=== PATIENT | female | born 1975 | race Caucasian/White ===

== ENCOUNTER 2024-01-02 15:40 | Emergency (ER) | payer OTHER, SELFPAY ==
[2024-01-02 15:46] VITALS: BP 146/93; PULSE 88; RESP 18; TEMP 36.7; O2SAT 100; BMI 29.0
--- NOTE | 2024-01-02 15:59 | ED.GENADUL1 ---
Documented by User: IRMA Collins 01/02/24 16:27 HPI - General Adult General Chief complaint: Urogenital-Female Stated complaint: UTI SYMPTOMS Time Seen by Provider: 01/02/24 15:41 Source: patient Mode of arrival: walk-in Limitations: no limitations History of Present Illness HPI narrative: Patient is a 48-year-old female who presents to the emergency department for UTI symptoms for the last 2 days. She states she has had similar UTIs in the past. She has urinary urgency and frequency associated with burning. She has no abdominal pain, fevers, vomiting. She reports mild diffuse pain across the low back today. She went to urgent care and was refused treatment and sent to the ER because of the low back pain. She states she has had similar UTIs previously and been treated without incident. She has no history of kidney stones. Related Data Previous Rx's Medication Instructions Recorded ciprofloxacin HCl 500 mg tablet 500 mg PO BID 7 days #14 tabs 01/02/24 (Cipro) ondansetron 4 mg disintegrating 4 mg PO Q6H PRN nausea and 01/02/24 tablet vomiting #12 tabs phenazopyridine 200 mg tablet 200 mg PO Q8H 2 days #6 tabs 01/02/24 (Pyridium) Allergies Allergy/AdvReac Type Severity Reaction Status Date / Time No Known Drug Allergies Allergy Verified 01/02/24 15:46 Review of Systems ROS Constitutional Denies: fever or chills Ears, nose, mouth, and throat Denies: throat pain or nasal congestion Cardiovascular Denies: chest pain Respiratory Denies: shortness of breath Gastrointestinal Denies: nausea or vomiting Genitourinary Reports: painful urination, urinary frequency and urinary urgency; Denies: blood in urine Musculoskeletal Reports: back pain Integumentary/Breast Denies: rash Neurological Denies: headache Hematologic/Lymphatic Denies: easy bruising or easy bleeding PFSH PFSH Social History Smoking status: Never smoker Exam Narrative Exam Narrative: Gen.: Awake, alert, in no distress Head: Normocephalic, atraumatic ENT: Moist mucous membranes Respiratory: No respiratory distress Gastrointestinal: Abdomen is soft, nondistended and nontender to palpation Back: No CVA tenderness Extremities: Moves extremities equally Psych: Normal mood and affect Neuro: No focal neuro deficit Skin: Warm, dry, intact Constitutional Vital Signs, click to edit/add: Last Vital Signs Temp 98.0 F 01/02/24 15:46 Pulse 88 01/02/24 15:46 Resp 18 01/02/24 15:46 BP 146/93 H 01/02/24 15:46 Pulse Ox 100 01/02/24 15:46 O2 Del Method Room Air 01/02/24 15:46 Course Vital Signs Vital signs: Vital Signs Temperature 98.0 F 01/02/24 15:46 Pulse Rate 88 01/02/24 15:46 Respiratory Rate 18 01/02/24 15:46 Blood Pressure 146/93 H 01/02/24 15:46 Pulse Oximetry 100 01/02/24 15:46 Oxygen Delivery Method Room Air 01/02/24 15:46 Temperature 98.0 F 01/02/24 15:46 Pulse Rate 88 01/02/24 15:46 Respiratory Rate 18 01/02/24 15:46 Blood Pressure 146/93 H 01/02/24 15:46 Pulse Oximetry 100 01/02/24 15:46 Oxygen Delivery Method Room Air 01/02/24 15:46 Medical Decision Making MDM Narrative Medical decision making narrative: I had a lengthy discussion with the patient about evaluation in the emergency department. Patient does not have a history of kidney stones, she does not have any severe pain in the ER, no abdominal pain, fevers or vomiting. She would like to defer additional testing at this time, urine specimen shows a urinary tract infection and the patient is started on Cipro, Pyridium, Zofran for home. She understands to return to the emergency department if symptoms change or worsen. Medical Records Medical records reviewed: Yes I reviewed the patient's medical records Lab Data Lab results reviewed: Yes I reviewed the patient's lab results Labs: Lab Results 01/02/24 Range/Units 16:00 Urine Color Lt. yellow (YELLOW) Urine Clarity Sl cloudy (CLEAR) Urine pH 5.5 (5.0-9.0) Ur Specific Ellis 1.025 (1.005-1.025) Urine Protein Negative (NEG/TRACE) mg/dL Urine Glucose (UA) Negative (NEGATIVE) mg/dL Urine Ketones Negative (NEGATIVE) mg/dL Urine Occult Blood Large A (NEGATIVE) Urine Nitrite Negative (NEGATIVE) Urine Bilirubin Negative (NEGATIVE) Urine Urobilinogen 0.2 (0.2-1.0) EU/dL Ur Leukocyte Esterase Small A (NEGATIVE) Urine RBC 5-10 A (0-2) #/HPF Urine WBC 20-50 A (NONE SEEN) #/HPF Ur Squamous Epith Cells Moderate A (NONE/RARE) #/LPF Urine Crystals None seen (None Seen) #/HPF Urine Bacteria Trace A (NONE SEEN) #/HPF Urine Casts None seen (NONE SEEN) #/LPF Urine Mucus Small A (NONE SEEN) Ur Culture Indicated? Yes Discharge Plan Discharge Chief Complaint: Urogenital-Female Clinical Impression: Urinary tract infection Patient Disposition: Home, Self-Care Time of Disposition Decision: 16:22 Condition: Good Prescriptions / Home Meds: New ciprofloxacin HCl [Cipro] 500 mg tablet 500 mg PO BID 7 Days Qty: 14 0RF phenazopyridine [Pyridium] 200 mg tablet 200 mg PO Q8H 2 Days Qty: 6 0RF ondansetron 4 mg tablet,disintegrating 4 mg PO Q6H PRN (Reason: nausea and vomiting) Qty: 12 0RF Instructions: Urinary Tract Infection in Women (ED) Additional Instructions: Please finish all of your antibiotics. If you develop fevers, severe pain, vomiting please return to the emergency department for further evaluation and treatment. Stand Alone Forms: Portal Instructions Referrals: Michelle Georges [employer] [Primary Care Provider] - 1 week Discharge Date/Time: 01/02/24 16:40 Documented by User: Tevin Tripathi MD 01/02/24 20:59 HPI - General Adult General Chief complaint: Urogenital-Female Stated complaint: UTI SYMPTOMS Time Seen by Provider: 01/02/24 15:41 Related Data Previous Rx's Medication Instructions Recorded ciprofloxacin HCl 500 mg tablet 500 mg PO BID 7 days #14 tabs 01/02/24 (Cipro) ondansetron 4 mg disintegrating 4 mg PO Q6H PRN nausea and 01/02/24 tablet vomiting #12 tabs phenazopyridine 200 mg tablet 200 mg PO Q8H 2 days #6 tabs 01/02/24 (Pyridium) Allergies Allergy/AdvReac Type Severity Reaction Status Date / Time No Known Drug Allergies Allergy Verified 01/02/24 15:46 PFSH PFSH Social History Smoking status: Never smoker Exam Constitutional Vital Signs, click to edit/add: Last Vital Signs Temp 98.0 F 01/02/24 15:46 Pulse 88 01/02/24 15:46 Resp 18 01/02/24 15:46 BP 146/93 H 01/02/24 15:46 Pulse Ox 100 01/02/24 15:46 O2 Del Method Room Air 01/02/24 15:46 Course Vital Signs Vital signs: Vital Signs Temperature 98.0 F 01/02/24 15:46 Pulse Rate 88 01/02/24 15:46 Respiratory Rate 18 01/02/24 15:46 Blood Pressure 146/93 H 01/02/24 15:46 Pulse Oximetry 100 01/02/24 15:46 Oxygen Delivery Method Room Air 01/02/24 15:46 Temperature 98.0 F 01/02/24 15:46 Pulse Rate 88 01/02/24 15:46 Respiratory Rate 18 01/02/24 15:46 Blood Pressure 146/93 H 01/02/24 15:46 Pulse Oximetry 100 01/02/24 15:46 Oxygen Delivery Method Room Air 01/02/24 15:46 Medical Decision Making [facility] Narrative Medical decision making narrative: I had a lengthy discussion with the patient about evaluation in the emergency department. Patient does not have a history of kidney stones, she does not have any severe pain in the ER, no abdominal pain, fevers or vomiting. She would like to defer additional testing at this time, urine specimen shows a urinary tract infection and the patient is started on Cipro, Pyridium, Zofran for home. She understands to return to the emergency department if symptoms change or worsen. I, Dr Tripathi, have reviewed the above progress note and course of action in the ER; agree with the above. I have gone over history and physical, and discussed disposition and treatment plan with the patient. Lab Data Labs: Lab Results 02/27/24 Range/Units 16:00 Urine Color Lt. yellow (YELLOW) Urine Clarity Sl cloudy (CLEAR) Urine pH 5.5 (5.0-9.0) Ur Specific Ellis 1.025 (1.005-1.025) Urine Protein Negative (NEG/TRACE) mg/dL Urine Glucose (UA) Negative (NEGATIVE) mg/dL Urine Ketones Negative (NEGATIVE) mg/dL Urine Occult Blood Large A (NEGATIVE) Urine Nitrite Negative (NEGATIVE) Urine Bilirubin Negative (NEGATIVE) Urine Urobilinogen 0.2 (0.2-1.0) EU/dL Ur Leukocyte Esterase Small A (NEGATIVE) Urine RBC 5-10 A (0-2) #/HPF Urine WBC 20-50 A (NONE SEEN) #/HPF Ur Squamous Epith Cells Moderate A (NONE/RARE) #/LPF Urine Crystals None seen (None Seen) #/HPF Urine Bacteria Trace A (NONE SEEN) #/HPF Urine Casts None seen (NONE SEEN) #/LPF Urine Mucus Small A (NONE SEEN) Ur Culture Indicated? Yes Discharge Plan Discharge Chief Complaint: Urogenital-Female Clinical Impression: Urinary tract infection Patient Disposition: Home, Self-Care Time of Disposition Decision: 16:22 Condition: Good Prescriptions / Home Meds: New ciprofloxacin HCl [Cipro] 500 mg tablet 500 mg PO BID 7 Days Qty: 14 0RF phenazopyridine [Pyridium] 200 mg tablet 200 mg PO Q8H 2 Days Qty: 6 0RF ondansetron 4 mg tablet,disintegrating 4 mg PO Q6H PRN (Reason: nausea and vomiting) Qty: 12 0RF Instructions: Urinary Tract Infection in Women (ED) Additional Instructions: Please finish all of your antibiotics. If you develop fevers, severe pain, vomiting please return to the emergency department for further evaluation and treatment. Stand Alone Forms: Portal Instructions Referrals: Michelle Georges NP [Primary Care Provider] - 1 week Discharge Date/Time: 01/02/24 16:40
[2024-01-02 16:07] LABS: Bilirubin Urine NEGATIVE (NEGATIVE); Blood Urine LARGE (NEGATIVE); Clarity Urine SL CLOUDY (CLEAR); Color Urine LT. YELLOW (YELLOW); Glucose Urine UA NEGATIVE (NEGATIVE); Ketones Urine NEGATIVE (NEGATIVE); Leukocyte Esterase Urine SMALL (NEGATIVE); Nitrite Urine NEGATIVE (NEGATIVE); Protein Urine NEGATIVE (NEG/TRACE); Specific Gravity Urine 1.025 (1.005-1.025); Urobilinogen Urine 0.2 EU/dL (0.2-1.0); pH Urine 5.5 (5.0-9.0)
[2024-01-02 16:09] LABS: Urine Microscopic Indicated YES
[2024-01-02 16:20] LABS: Bacteria Urine TRACE #/HPF (NONE SEEN); Mucus Urine SMALL (NONE SEEN); WBC Urine 20-50 #/HPF (NONE SEEN)
[2024-01-02 16:21] LABS: Cast Seen? NONE SEEN #/LPF (NONE SEEN); Crystals Seen? None Seen #/HPF (None Seen); Squamous Epithelial Cell Urine MODERATE #/LPF (NONE/RARE); Urine Culture Indicated YES
== END 2024-01-02 16:40 | disposition home or self-care (01) ==
PROVIDERS: Physician Assistant; Emergency Provider Emergency Medicine; PCP Nurse Practitioner
DX: N39.0 Urinary tract infection, site not specified (principal); Z87.440 Personal history of urinary (tract) infections; M54.50 Low back pain, unspecified
CPT/HCPCS: 81001; 87086; 87150; 87186; 99283

== ENCOUNTER 2024-01-09 15:27 | Outpatient (OUT) | payer OTHER, SELFPAY ==
--- NOTE | 2024-01-09 | MM_ITS ---
Patient Name: JO-ANN CARRASCO MR#: [id number] : 1975 Exam Date: 01/09/2024 Ordering Doctor: DANNY Georges CNP RADIOLOGY REPORT PROCEDURE: MM TOMOSYNTHESIS SCREENING BI COMPARISON: MG MAMM SCREEN 3D SHANE CAD, 12/20/2022. MG MAMM SCREEN SHANE W CAD, 09/08/2020. INDICATIONS: Screening for malignant neoplasm Calculator Name NCI Breast Cancer Risk Assessment Tool 5 Year Breast Cancer Risk 1.40% Lifetime Breast Cancer Risk 12.90% Personal Breast Cancer No Personal Ovarian Cancer No Treatments None Family Cancers Aunt-paternal with breast cancer at age 50. LOCATION: [facility] BREAST COMPOSITION: Extremely dense, which lowers the sensitivity of mammography. FINDINGS: DIAGNOSTIC CATEGORY 0--INCOMPLETE: NEED ADDITIONAL IMAGING EVALUATION. Scattered benign-appearing nodules are present. Scattered benign-appearing calcifications are present. Scattered benign-appearing lymph nodes are present. RIGHT BREAST: New cluster of subtle microcalcifications best seen on the CC projection along the 12 o'clock, mid to posterior breast. Spot magnification is recommended for further characterization. LEFT BREAST: No significant suspicious finding. RECOMMENDATIONS: ADDITIONAL MAMMOGRAPHIC VIEWS REQUIRED: RIGHT BREAST - spot magnification PLEASE NOTE: A NORMAL MAMMOGRAM DOES NOT EXCLUDE THE POSSIBILITY OF BREAST CANCER. A CLINICALLY SUSPICIOUS PALPABLE LUMP SHOULD BE BIOPSIED. Dictated by: Ray Moon MD on 01/10/2024 at 09:29 Approved by: Ray Moon MD on 01/10/2024 at 09:31
--- OUTSIDE RECORDS SUMMARY | 2024-01-09 15:44 | XMS_ITS | CCD ---
Author Name Unknown Address [address] [place] [id number] Organization [facility] Care Team Providers Care Referral Nurse Name Role Phone AICHHOLZ, PARTS CATALOGUER GUILLERMO Primary Care Unavailable AICHHOLZ, PARTS CATALOGUER GUILLERMO Consulting Unavailable AICHHOLZ, PARTS CATALOGUER GUILLERMO Attending Unavailable AICHHOLZ, PARTS CATALOGUER GUILLERMO Admitting Unavailable GARY, DR LOW Chavez Consulting Unavailable WEST, DR DESHAWN Liao Consulting Unavailable AICHHOLZ, PARTS CATALOGUER GUILLERMO Attending Unavailable AICHHOLZ, PARTS CATALOGUER GUILLERMO Admitting Unavailable AICHHOLZ, PARTS CATALOGUER GUILLERMO Primary Care Unavailable AICHHOLZ, PARTS CATALOGUER GUILLERMO Consulting Unavailable LEANNE Boykin Attending Provider Iesha Boykin Unavailable Iesha Boykin Admitting Unavailable Iesha Boykin Attending Unavailable Lisa Mckeon Unavailable Sonal Elena Unavailable Medications Current Medications Medication Drug Class(es) Dates Sig (Normalized) Sig (Original) dextromethorphan hydrobromide 1.5 mg/ml / pyrilamine maleate 1.5 mg/ml oral solution (1 source) Uncompetitive Z-huznqw-X-aspartat e Receptor Antagonist, Sigma-1 Agonist Start: 12-15-2023 take 10 mL by mouth every eight hours Frontier DM 7.5-7.5 MG/5ML 10 mL Orally every 8 hours for 5 days Dec, Active predniSONE 20 mg oral tablet (3 sources) Start: 11-09-2023 take 1 tablet by mouth every twelve hours prednisone 20 MG 1 tablet Orally BID for 5 Dec, Active Completed/Discontinued Medications Medication Drug Class(es) Dates Sig (Normalized) Sig (Original) amoxicillin 875 mg / clavulanate 125 mg oral tablet (2 sources) Penicillin-class Antibacterial Start: 11-09-2023 take 1 tablet by mouth every twelve hours Amoxicillin-Pot Clavulanate 875-125 MG 1 tablet Orally every 12 hrs for 10 day(s) Nov, Not-Taking/PRN Cetirizine (6 sources) Histamine-1 Receptor Antagonist ZyrTEC Allergy Not-Taking/PRN ZyrTEC Allergy N ot-Taking cyclobenzaprine hydrochloride 10 mg oral tablet (6 sources) Muscle Relaxant Start: 07-11-2020 take 1 tablet by mouth every eight hours Cyclobenzaprine HCl 10 MG 1 tablet as needed Orally Three times a day for 7 days Jul, Not-Taking/PRN Ketorolac (12 sources) Nonsteroidal Anti-inflammatory Drug, Cyclooxygenase Inhibitor Start: 07-11-2020 Toradol per 15 mg Jul, 30 mg Start: 05-05-2020 Toradol per 15 mg 30 Apr, 2020 30 mg methylPREDNISolone 4 mg oral tablet (6 sources) Corticosteroid Start: 07-11-2020 Medrol 4 MG as directed Orally for 6 days Jul, Not-Taking/PRN nitrofurantoin, macrocrystals 25 mg / nitrofurantoin, monohydrate 75 mg oral capsule (6 sources) Nitrofuran Antibacterial Start: 09-13-2023 take 1 capsule by mouth every twelve hours Macrobid 100 MG 1 cap(s) Orally bid for 5 day(s) Sep, Not-Taking/PRN phenazopyridine hydrochloride 200 mg oral tablet (6 sources) Start: 09-13-2023 take 1 tablet by mouth every eight hours Pyridium 200 MG 1 tablet after meals Orally Three times a day for 2 day(s) Sep, Not-Taking/PRN ProAir HFA 108 (90 Base) MCG/ACT (6 sources) Start: 05-23-2019 take 2 puff(s) by inhalation every four to six hours as needed ProAir HFA 108 (90 Base) MCG/ACT 2 puffs as needed Inhalation every 4-6 hrs prn May, Not-Taking/PRN Start: 05-23-2019 take 2 puff(s) by in halation every four to six hours as needed ProAir HFA 108 (90 Base) MCG/ACT 2 puffs as needed Inhalation every 4-6 hrs prn May, Not-Taking Triamcinolone (12 sources) Corticosteroid Start: 07-11-2020 KENALOG - 10 m g Jul, 40 mg Start: 05-05-2020 KENALOG - 10 m g Apr, 40 mg Problems Active Problems Problem Classification Problem Date Documented Da te Episodic/Chronic Genitourinary symptoms and ill-defined conditions (4 sources) Dysuria; Translations: [Dysuria] Onset: 09-13-2023 Episodic Other ear and sense organ disorders (6 sources) Otitis externa; Translations: [Unspecified otitis externa, right ear] Chronic Other eye disorders (1 source) Conjunctival hemorrhage, left eye Episodic Other non-traumatic joint disorders (4 sources) Effusion, left ankle; Translations: [EFFUSION LEFT ANKLE] Onset: 12-07-2022 Episodic Other screening for suspected conditions (not mental disorders or infectious disease) (4 sources) Encounter for screening mammogram for malignant neoplasm of breast; Translations: [ENC SCR MAMMO MALIG NEOPLASM BREAST] Onset: 12-20-2022 Episodic Other upper respiratory disease (6 sources) Allergic rhinitis; Translations: [Allergic rhinitis, unspecified] Chronic Other upper respiratory infections (2 sources) Acute maxillary sinusitis, unspecified; Translations: [Acute upper respiratory infection, unspecified] Episodic Residual codes; unclassified (1 source) Family history of malignant neoplasm of breast; Translations: [FAMILY HX MALIG NEOPLASM OF BREAST] Onset: 12-23-2022 Episodic Spondylosis; intervertebral disc disorders; other back problems (12 sources) Sciatica; Translations: [Sciatica, left side] Episodic Urinary tract infections (3 sources) Acute cystitis with hematuria Episodic Past or Other Problems Problem Classification Problem Date Documented Da te Episodic/Chronic Unclassified (1 source) Contact with and (suspected) exposure to covid-19 Z20.822 Results Test Name Value Interpretation Reference Range Facil ity COVID + FLU Quick Testingon 12-15-2023 SARS-CoV-2 (COVID-19) RNA SHARMILA+probe Ql (Unsp spec) Negative [facility] Other COVID + FLU Quick Testing Negative [facility] Other Urinalysis - AUTOMATEDon Appearance (U) clear [facility] Other Bilirubin Ql (U) Negative Should[employer] Other Color (U) yellow [facility] Other Glucose Ql (U) Negative [facility] Other Hemoglobin Ql (U) large [employer] Other Ketones Ql (U) Positive [facility] Other Leukocyte esterase Test strip Ql (U) moderate [facility] Other Nitrite Ql (U) Positive [facility] Other pH (U) 6.5 [pH] [facility] Other Protein Ql (U) Negative [facility] Other Specific gravity (U) [Rel density] 1.025 [facility] Other Urobilinogen (U) [Mass/Vol] 0.2 mg/dL [facility] Other Urinalysis - AUTOMATED [facility] Other Urine Cultureon 09-13-2023 Bacteria identified Cx Nom (U) Reason for Exam Dysuria Urine ORGANISM: Escherichia coli (O:ESCCOL) [place] Count >100,000 Aerobic LETTY Charge (NMIC56) ----- SUSCEPTIBILITY ---- ORGANISM: O:ESCCOL ANTIBIOTIC INTERPRETATION LETTY Amikacin S <16 Amoxacillin/K Clavulanate S <8 Ampicillin S <8 Ampicillin/Sulbactam S <4 Aztreonam S <4 Cefazolin S <2 Cefepime S <2 Ceftazidime S <1 Ceftazidime/Avibacta m S <4 Ceftolozane/Tazobact am S <2 Ceftriaxone S <1 Cefuroxime S <4 Ciprofloxacin S <0.25 Ertapenem S <0.5 Gentamicin S <2 Levofloxacin S <0.5 Meropenem S <1 Meropenem/Vaborbacta m S <2 Nitrofurantoin S <32 Piperacillin/Tazobac bell S <8 Tetracycline S <4 Tigecycline S <2 Tobramycin S <2 Trimethoprim/Sulfame thoxazole S <0.5 S = SUSCEPTIBLE I = INTERMEDIATE R = RESISTANT BLANK = DATA NOT AVAILABLE, OR DRUG NOT ADVISABLE OR TESTED R* = RESISTANCE DUE TO EXTENDED SPECTRUM BETA-LACTAMASES ESBL = EXTENDED SPECTRUM BETA-LACTAMASE TFG = THYMIDINE-DEPENDENT STRAIN TEE = BETA-LACTAMASE POSITIVE IB = INDUCIBLE BETA-LACTAMASE. APPEARS IN PLACE OF 'S' WITH SPECIES KNOWN TO POSSESS INDUCIBLE BETA-LACTAMASES. POTENTIALLY THEY MAY BECOME RESISTANT TO ALL B-LACTAM DRUGS. PERFORMED BY: [facility] [address] [place] [address] PATHOLOGIST FITNESS SUPERVISOR TEVIN JENKINS M.D. Normal [facility] Comment on above: Performed By: #### C UU #### [facility] [address] [place] [address] Urine Culture >100,000 [facility] Other Urine Culture <16 Susceptible [facility] Other Urine Culture <8/4 Susceptible [facility] Other Urine Culture <8 Susceptible [facility] Other Urine Culture <4 Susceptible [facility] Other Urine Culture <2 Susceptible [facility] Other Urine Culture <1 Susceptible [facility] Other Urine Culture <0.25 Susceptible [facility] Other Urine Culture <0.5 Susceptible [facility] Other Urine Culture <32 Susceptible [facility] Other Urine Culture <0.5/9.5 Susceptible [facility] Other MG MAMM SCREEN 3D SHANE CADon 12-20-2022 MG MAMM SCREEN 3D SHANE CAD Patient: JO-ANN CARRASCO Exam Date: 12/20/2022 : 1975 Gender:F Ordering : DANNY GERBER [facility] Admission #: [id number] Family : Order #: [id number] CLICK HERE TO VIEW EXAM RADIOLOGY REPORT PROCEDURE: MAMMOGRAM SCREENING 3D BILATERAL CAD COMPARISON: MG MAMM SCREEN SHANE W CAD, 05/07/2019. MG MAMM SCREEN SHANE W CAD, 09/08/2020. INDICATIONS: Screening mammography Calculator Name NCI Breast Cancer Risk Assessment Tool 5 Year Breast Cancer Risk 1.50% Lifetime Breast Cancer Risk 13.20% Personal Breast Cancer No Personal Ovarian Cancer No Treatments None Family Cancers Aunt-paternal with breast cancer at age 50. LOCATION: [facility] BREAST COMPOSITION: Extremely dense, which lowers the sensitivity of mammography. FINDINGS: DIAGNOSTIC CATEGORY 1--NEGATIVE. NO CHANGE FROM COMPARISON ASSESSMENT. Scattered benign-appearing calcifications are present. Scattered benign-appearing lymph nodes are present. RIGHT BREAST: No significant suspicious finding. LEFT BREAST: No significant suspicious finding. RECOMMENDATIONS: ROUTINE MAMMOGRAM AND CLINICAL EVALUATION IN 12 MONTHS. PLEASE NOTE: A NORMAL MAMMOGRAM DOES NOT EXCLUDE THE POSSIBILITY OF BREAST CANCER. A CLINICALLY SUSPICIOUS PALPABLE LUMP SHOULD BE BIOPSIED. Dictated by: Deshawn Joseph MD on 12/21/2022 at 06:14 Approved by: Deshawn Joseph MD on 12/21/2022 at 06:16 Normal [facility] Vital Signs Date Time Vital Sign Value Performing Clinician Facility 12-15-2023 15:50-0500 Body height 165.1 cm Sonal Elena Other [facility] Other 12-15-2023 15:50-0500 Body mass index (BMI) [Ratio] 29.95 kg/m2 Sonal Elena Other [facility] Other 12-15-2023 15:50-0500 Body temperature 98.1 [degF] Sonal Elena Other [facility] Other 12-15-2023 15:50-0500 Body weight 81.65 kg Sonal Elena Other [facility] Other 12-15-2023 15:50-0500 Diastolic blood pressure 94 mm[Hg] Sonal Elena Other [facility] Other 12-15-2023 15:50-0500 Respiratory rate 18 /min Sonal Elena Other [facility] Other 12-15-2023 15:50-0500 SaO2% (BldA) [Mass fraction] 99 % Sonal Elena Other [facility] Other 12-15-2023 15:50-0500 Systolic blood pressure 141 mm[Hg] Sonal Elena Other [facility] Other 11-09-2023 15:30-0500 Body height 165.1 cm Sonal Elena Other [facility] Other 11-09-2023 15:30-0500 Body mass index (BMI) [Ratio] 29.88 kg/m2 Sonal Elena Other [facility] Other 11-09-2023 15:30-0500 Body temperature 97.3 [degF] Sonal Elena Other [facility] Other 11-09-2023 15:30-0500 Body weight 81.47 kg Sonal Elena Other [facility] Other 11-09-2023 15:30-0500 Diastolic blood pressure 85 mm[Hg] Sonal Elena Other [facility] Other 11-09-2023 15:30-0500 Respiratory rate 18 /min Sonal Elena Other [facility] Other 11-09-2023 15:30-0500 SaO2% (BldA) [Mass fraction] 99 % Sonal Ulices Other [facility] Other 11-09-2023 15:30-0500 Systolic blood pressure 129 mm[Hg] Sonal Ulices Other [facility] Other 10-19-2023 15:45-0500 Body height 165.1 cm Lisa Linda Other [facility] Other 10-19-2023 15:45-0500 Body mass index (BMI) [Ratio] 29.28 kg/m2 Lisa Linda Other [facility] Other 10-19-2023 15:45-0500 Body temperature 98.1 [degF] Lisa Linda Other [facility] Other 10-19-2023 15:45-0500 Body weight 79.83 kg Lisa Linda Other [facility] Other 10-19-2023 15:45-0500 Diastolic blood pressure 91 mm[Hg] Lisa Linad Other [facility] Other 10-19-2023 15:45-0500 Respiratory rate 18 /min Lisa Linda Other [facility] Other 10-19-2023 15:45-0500 SaO2% (BldA) [Mass fraction] 98 % Lisa Linda Other [facility] Other 10-19-2023 15:45-0500 Systolic blood pressure 140 mm[Hg] Lisa Linda Other [facility] Other 09-13-2023 13:55-0500 Body height 165.1 cm Iesha Boykin Other [facility] Other 09-13-2023 13:55-0500 Body mass index (BMI) [Ratio] 29.62 kg/m2 Iesha Boykin Other [facility] Other 09-13-2023 13:55-0500 Body temperature 97.9 [degF] Iesha Boykin Other [facility] Other 09-13-2023 13:55-0500 Body weight 80.74 kg Iesha Boykin Other [facility] Other 09-13-2023 13:55-0500 Respiratory rate 18 /min Iesha Boykin Other [facility] Other 09-13-2023 13:55-0500 SaO2% (BldA) [Mass fraction] 98 % Iesha Boykin Other [facility] Other Encounters Encounter Date Encounter Type Care Provider Facility Start: 12-15-2023 End: 12-15-2023 ambulatory Sonal Elena Other [facility] Other Start: 12-15-2023 Office outpatient vi sit 25 minutes Sonal Elena [facility] Start: 11-09-2023 End: 11-09-2023 ambulatory Sonal Elena Other [facility] Other Start: 11-09-2023 Office outpatient vi sit 25 minutes Sonal Elena [facility] Start: 10-19-2023 End: 10-19-2023 ambulatory Lisa Linda Other [facility] Other Start: 10-19-2023 Office outpatient vi sit 15 minutes Lisa Mckeon [facility] Start: 09-13-2023 End: 09-13-2023 ambulatory Iesha Boykin Facility:[facility] Start: 09-13-2023 End: 09-13-2023 Departed 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 [employer]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 Iesha Boykin Work Phone: [facility] [employer] Work Phone: Start: 09-13-2023 End: 09-13-2023 ambulatory P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 Iesha Boykin Work Phone: [facility] Work Phone: Start: 09-13-2023 Office outpatient ne w 10 minutes Iesha Boykin [facility] Start: 12-20-2022 End: 12-21-[address] DESHAWN JOSEPH Facility:[facility] Start: 12-07-2022 End: 12-08-2022 ambulatory DANNY HERNANDEZA BUZZ Facility:[facility] Procedures Date Procedure Procedure Detail Performing Clinician Start: 09-13-2023 Piperacillin/tazobactam Iesha Boykin Other Plan of Treatment Date Care Activity Detail Author Start: 09-13-2023 Bacteria identified in Urine by Culture [facility] Payers Date Payer Category Payer Medicaid [id number] 2023 Self-pay [id number] 1975 Unknown [id number] 1975 Unknown [id number] 1960 Unknown [id number] Private Health Insurance [facility] Plan [id number] Unknown [id number] Social History Date Type Detail Facility Tobacco smoking status NHIS Unknown if ever smoked [facility] Work Phone: Start: 1975 Sex Assigned At Female F [facility] Sex Assigned At Sex Assigned At Bir th [place] [employer] Other Evaluation note 12-15-2023 Note Date & Type Note Facility 12-15-2023 Evaluation note Encounter Date Diagnosis Assessment Notes Dec, Contact with and (suspected) exposure to covid-19 (ICD-10 - Z20.822) Dec, Viral URI with cough (ICD-10 - J06.9) Advised patient that COVID/Influenza A/B test was negative today. Advised patient that will treat as viral URI. Supportive care as directed, increase fluids and rest, Tylenol/Motrin as directed, rx of prednisone and Frontier as directed, cool mist humidifier, throat lozenges. Discussed infection control practices such as good hand washing and mask wearing. Patient to follow up with PCP if symptoms persist or worsen despite treatment. Immediate eval for SOB, difficulty breathing, chest pain, fevers that do not break with antipyretic or any other concerning symptoms as reviewed on patient education handout. Patient verbalizes understanding and is agreeable to treatment plan. Patient left in stable condition [facility] Other Evaluation note 11-09-2023 Note Date & Type Note Facility 11-09-2023 Evaluation note Encounter Date Diagnosis Assessment Notes Nov, Acute non-recurrent maxillary sinusitis (ICD-10 - J01.00) No testing performed at this time. Discussed diagnosis with patient in detail. Will treat today with antibiotic. Reviewed allergies and recent antibiotic use. Advised to take medications as prescribed, reviewed side effects of steroid, take with food and plenty of water, finish entire course. Encouraged supportive care as directed, push fluids and rest, may use Tylenol as needed for fever/discomfor t, cool mist humidifier, OTC cold medications as directed. Patient to follow up with PCP in 2-3 days if symptoms do not improve. Immediate eval if SOB, difficulty breathing, chest pain, dizziness, or other concerning symptoms. Patient verbalizes understanding and is agreeable to treatment plan [facility] Other Evaluation note 10-19-2023 Note Date & Type Note Facility 10-19-2023 Evaluation note Encounter Date Diagnosis Assessment Notes Oct, Subconjunctival hemorrhage of left eye (ICD-10 - H11.32) You were seen here today for complaints of left outer corner eye redness. You deny injury, itching, pain, or draianage, You deny any recent illness, congestion, cough, or high blood pressure. The exam of your left eye is consistent with a subconjunctival hemmorhage. You can continue your saline eye drops for comfort. The redness should resolve on its own. Follow up with your primary care provider or eye doctor if sympotoms persist. Go to the ER if you lose vision, have change in vision, severe headache. [facility] Other Evaluation note 09-13-2023 Note Date & Type Note Facility 09-13-2023 Evaluation note Encounter Date Diagnosis Assessment Notes Sep, Dysuria (ICD-10 - R30.0) Sep, Acute cystitis with hematuria (ICD-10 - N30.01) Drink plenty fluids, get plenty of rest. Take the Macrobid and the Pyridium as prescribed until gone. Take Tylenol or Motrin as needed for aches pains or fevers. Follow-up with your family physician if no improvement in 2 to 3 days [facility] Other Clinical Note 12-07-2022 Note Date & Type Note Facility 12-07-2022 Note PROCEDURE: XR ANKLE LT MIN 3 V HISTORY: Effusion of joint of left ankle ; acute lateral ankle pain; no known injury COMPARISON: None. FINDINGS: BONES:No fracture, acute abnormality, or significant arthropathy. SOFT TISSUES:Mild lateral soft tissue swelling. EFFUSION:None visible. OTHER: Negative. IMPRESSION: 1. Mild lateral swelling suggesting soft tissue injury. 2. No acute bone abnormality. Electronically authenticated by: LOW VEGA Date: 2022-12-07 13:11 [facility] Evaluation note Note Date & Type Note Facility Evaluation note No assessment information availa ble [facility] Work Phone: History general Narrative - Reported Note Date & Type Note Facility History general Narrative - Reported Type Surgical History tubal ligation Surgical History C section x 2 Surgical History LEEP Hospitalization History see above [facility] Other Summary Purpose Family History No Family History Records FoundNo Family History Records Found Advance Directives Advance Directive Response Recorded Date/ Time Advance Directives No December 05, 2018 9:22am Chief Complaint and Reason for Visit Chief Complaint Dysuria Additional Source Comments INFORMATION SOURCE (unrecogn ized section and content) DATE CREATED AUTHOR 12/24/2022 [facility] DATE CREATED AUTHOR AUTHOR'S ORGANIZ ATION 09/19/2023 [facility] Care Teams (unrecognized sec tion and content) Team Status: Inactive Member Role Status Dates GRICEL ChuC Attending Provider Active Goals (unrecognized section and content) Goals may be documented in a n alternate sectionNo InformationNo InformationNo InformationNo InformationNo InformationNo Information REASON FOR VISIT (unrecogniz ed section and content) POSSIBLE UTIPOSSIBLE UTIPOSS IBLE UTILEFT EYE, RED, NOT PINK EYE. BROKEN BLOOD VESSEL, IRRATINGSINUS CONGESTION//COUGHING//FLUID IN BOTH EARSCOUGH, CONGESTION, EARACHE FOR RECORDS PERTAINING TO PATIENTS WHO ARE OR HAVE BEEN ENROLLED IN A CHEMICAL DEPENDENCY/SUBSTANCEABUSE PROGRAM, SOME INFORMATION MAY BE OMITTED. This clinical summary was aggregated from multiple sources. Caution should be exercised in using it in the provision of clinical care. This summary normalizes information from multiple sources, and as a consequence, information in this document may materially change the coding, format and clinical context of patient data. In addition, data may be omitted in some cases. CLINICAL DECISIONS SHOULD BE BASED ON THE PRIMARY CLINICAL RECORDS. [employer] provides no warranty or guarantee of the accuracy or completeness of information in this document.
== END 2024-01-09 15:28 | disposition home or self-care (01) ==
LOC: MAMMO 15:27
PROVIDERS: PCP Nurse Practitioner; Visit Provider Nurse Practitioner
DX: Z12.31 Encounter for screening mammogram for malignant neoplasm of breast (principal); Z80.3 Family history of malignant neoplasm of breast; R92.0 Mammographic microcalcification found on diagnostic imaging of breast
CPT/HCPCS: 77063; 77067

== ENCOUNTER 2024-01-24 10:43 | Outpatient (OUT) | payer OTHER, SELFPAY ==
--- NOTE | 2024-01-24 10:50 | US_ITS ---
Patient Name: JO-ANN CARRASCO MR#: [id number] : 1975 Exam Date: 01/24/2024 Ordering Doctor: DANNY Georges CNP RADIOLOGY REPORT PROCEDURE: MM DIAGNOSTIC MAMMO UNILAT RT, 01/24/2024, 09:59 US BREAST RT LIMITED, 01/24/2024, 11:24 COMPARISON: MM TOMOSYNTHESIS SCREENING BI, 01/09/2024. INDICATIONS: abnormal screening mammogram right breast Calculator Name NCI Breast Cancer Risk Assessment Tool 5 Year Breast Cancer Risk 1.40% Lifetime Breast Cancer Risk 12.90% Personal Breast Cancer No Personal Ovarian Cancer No Treatments None Family Cancers Aunt-paternal with breast cancer at age 50. LOCATION: [facility] BREAST COMPOSITION: Extremely dense, which lowers the sensitivity of mammography. FINDINGS: DIAGNOSTIC CATEGORY 4--SUSPICIOUS FOR MALIGNANCY. FINDING DOES NOT EXHIBIT CLASSIC FINDINGS OF BREAST CANCER: Two spot magnification views demonstrate an 8.2 x 7.8 by 5.8 mm partially circumscribed lobular mass with faint pleomorphic microcalcifications. No corresponding abnormality identified on ultrasound. Noted on ultrasound at the 1 o'clock position is a 3.9 mm simple cyst. Stereotactic biopsy of the right breast mass is recommended RECOMMENDATIONS: STEREOTACTIC BREAST BIOPSY: RIGHT BREAST PLEASE NOTE: A NORMAL MAMMOGRAM DOES NOT EXCLUDE THE POSSIBILITY OF BREAST CANCER. A CLINICALLY SUSPICIOUS PALPABLE LUMP SHOULD BE BIOPSIED. Dictated by: Ray Moon MD on 01/24/2024 at 11:48 Approved by: Ray Moon MD on 01/24/2024 at 11:51
--- OUTSIDE RECORDS SUMMARY | 2024-01-24 11:03 | XMS_ITS | CCD ---
Author Organization [facility] Care Team Providers Care Loan Coordinator Name Role Phone AICHHOLZ, PROSTHETIC LAB TECHNICIAN GUILLERMO Primary Care Unavailable AICHHOLZ, PROSTHETIC LAB TECHNICIAN GUILLERMO Consulting Unavailable AICHHOLZ, PROSTHETIC LAB TECHNICIAN GUILLERMO Attending Unavailable AICHHOLZ, PROSTHETIC LAB TECHNICIAN GUILLERMO Admitting Unavailable DR LOW VEGA Consulting Unavailable DR DESHAWN JOSEPH V Consulting Unavailable AICHHOLZ, PROSTHETIC LAB TECHNICIAN GUILLERMO Attending Unavailable AICHHOLZ, PROSTHETIC LAB TECHNICIAN GUILLERMO Admitting Unavailable AICHHOLZ, PROSTHETIC LAB TECHNICIAN GUILLERMO Primary Care Unavailable AICHHOLZ, PROSTHETIC LAB TECHNICIAN GUILLERMO Consulting Unavailable LEANNE Boykin Attending Provider [phone] Iesha Boykin Unavailable Iesha Boykin Admitting Unavailable Iesha Boykin Attending Unavailable Lisa Mckeon Unavailable Sonal Elena Unavailable SHAIKH RYAN Attending Unavailable Medications Current Medications Medication Drug Class(es) Dates Sig (Normalized) Sig (Original) dextromethorphan hydrobromide 1.5 mg/ml / pyrilamine maleate 1.5 mg/ml oral solution (1 source) Uncompetitive R-zxahpd-J-aspartat e Receptor Antagonist, Sigma-1 Agonist Start: 12-15-2023 take 10 mL by mouth every eight hours [place] DM 7.5-7.5 MG/5ML 10 mL Orally every [...] (COVID-19) RNA SHARMILA+probe Ql (Unsp spec) Negative [facility] Other COVID + FLU Quick Testing Negative [facility] Other Urinalysis - AUTOMATEDon Appearance (U) clear [employer] Other Bilirubin Ql (U) Negative [place] Other Color (U) yellow [place] Other Glucose Ql (U) Negative [employer] Other Hemoglobin Ql (U) large [email or web address] Other Ketones Ql (U) Positive [employer] Other Leukocyte esterase Test strip Ql (U) moderate [place] Other Nitrite Ql (U) Positive [employer] Other pH (U) 6.5 [pH] [place] Other Protein Ql (U) Negative [employer] Other Specific gravity (U) [Rel density] 1.025 [place] Other Urobilinogen (U) [Mass/Vol] 0.2 mg/dL [facility] Other Urinalysis - AUTOMATED [facility] Other Urine Cultureon 09-13-2023 Bacteria identified Cx Nom (U) Reason for Exam Dysuria Urine ORGANISM: Escherichia coli (O:ESCCOL) [place] Count >100,000 Aerobic LETTY Charge (NMIC56) ----- [...] RESISTANT TO ALL B-LACTAM DRUGS. PERFORMED BY: [facility] [address] [place] [address] PATHOLOGIST FLIGHT COMMUNICATIONS OPERATOR TEVIN JENKINS M.D. Normal [facility] Comment on above: Performed By: #### C UU #### [facility] [address] Urine Culture >100,000 [place] Other Urine Culture <16 Susceptible [employer] Other Urine Culture <8/4 Susceptible [employer] Other Urine Culture <8 Susceptible [employer]) Other Urine Culture <4 Susceptible [employer] Other Urine Culture <2 Susceptible [employer]) Other Urine Culture <1 Susceptible [employer] Other Urine Culture <0.25 Susceptible [employer] Other Urine Culture <0.5 Susceptible [employer] Other Urine Culture <32 Susceptible [employer] Other Urine Culture <0.5/9.5 Susceptible [employer] Other MG MAMM SCREEN 3D SHANE CADon 12-20-2022 MG MAMM SCREEN 3D SHANE CAD Patient: JO-ANN CARRASCO Exam Date: 12/20/2022 : 1975 Gender:F Ordering : DANNY GERBER PROSTHETIC LAB TECHNICIAN Admission #: [id number] Family : Order #: [id number] CLICK HERE TO VIEW EXAM RADIOLOGY REPORT [...] breast cancer at age 49. LOCATION: [facility] BREAST COMPOSITION: Extremely dense, which lowers the [...] MD on 12/21/2022 at 06:16 Normal [facility] Vital Signs Date Time Vital Sign Value Performing Clinician Facility 12-15-2023 15:50-0500 Body height 165.1 cm Sonal Elena Other [place] Other 12-15-2023 15:50-0500 Body mass index (BMI) [Ratio] 29.95 kg/m2 Sonal Elena Other [place] Other 12-15-2023 15:50-0500 Body temperature 98.1 [degF] Sonal Elena Other [place] Other 12-15-2023 15:50-0500 Body weight 81.65 kg Sonal Elena Other [place] Other 12-15-2023 15:50-0500 Diastolic blood pressure 94 mm[Hg] Sonal Elena Other [place] Other 12-15-2023 15:50-0500 Respiratory rate 18 /min Sonal Elena Other [place] Other 12-15-2023 15:50-0500 SaO2% (BldA) [Mass fraction] 99 % Sonal Elena Other [place] Other 12-15-2023 15:50-0500 Systolic blood pressure 141 mm[Hg] Sonal Elena Other [place] Other 11-09-2023 15:30-0500 Body height 165.1 cm Sonal Elena Other [place] Other 11-09-2023 15:30-0500 Body mass index (BMI) [Ratio] 29.88 kg/m2 Sonal Elena Other [place] Other 11-09-2023 15:30-0500 Body temperature 97.3 [degF] Sonal Elena Other [place] Other 11-09-2023 15:30-0500 Body weight 81.47 kg Sonal Elena Other [place] Other 11-09-2023 15:30-0500 Diastolic blood pressure 85 mm[Hg] Sonal Elena Other [place] Other 11-09-2023 15:30-0500 Respiratory rate 18 /min Sonal Elena Other [place] Other 11-09-2023 15:30-0500 SaO2% (BldA) [Mass fraction] 99 % Sonal Elena Other [place] Other 11-09-2023 15:30-0500 Systolic blood pressure 129 mm[Hg] Sonal Elena Other [place] Other 10-19-2023 15:45-0500 Body height 165.1 cm Lisa Linda Other [place] Other 10-19-2023 15:45-0500 Body mass index (BMI) [Ratio] 29.28 kg/m2 Lisa Linda Other [place] Other 10-19-2023 15:45-0500 Body temperature 98.1 [degF] Lisa Linda Other [place] Other 10-19-2023 15:45-0500 Body weight 79.83 kg Lisa Linda Other [place] Other 10-19-2023 15:45-0500 Diastolic blood pressure 91 mm[Hg] Lisa Linda Other [place] Other 10-19-2023 15:45-0500 Respiratory rate 18 /min Lisa Linda Other [place] Other 10-19-2023 15:45-0500 SaO2% (BldA) [Mass fraction] 98 % Lisa Linda Other [place] Other 10-19-2023 15:45-0500 Systolic blood pressure 140 mm[Hg] Lisa Linda Other [place] Other 09-13-2023 13:55-0500 Body height 165.1 cm Iesha Boykin Other [place] Other 09-13-2023 13:55-0500 Body mass index (BMI) [Ratio] 29.62 kg/m2 Iesha Boykin Other [place] Other 09-13-2023 13:55-0500 Body temperature 97.9 [degF] Iesha Boykin Other [place] Other 09-13-2023 13:55-0500 Body weight 80.74 kg Iesha Boykin Other [place] Other 09-13-2023 13:55-0500 Respiratory rate 18 /min Iesha Boykin Other [place] Other 09-13-2023 13:55-0500 SaO2% (BldA) [Mass fraction] 98 % Iesha Boykin Other [place] Other Encounters Encounter Date Encounter Type Care Provider Facility Start: 01-18-2024 End: 01-18-2024 ambulatory SHAIKH SHELBY Not Available Start: 12-15-2023 End: 12-15-2023 ambulatory Sonal Elena Other [place] Other Start: 12-15-2023 Office outpatient vi sit 25 minutes Sonal Elena [facility] Start: 11-09-2023 End: 11-09-2023 ambulatory Sonal Elena Other [place] Other Start: 11-09-2023 Office outpatient vi sit 25 minutes Sonal Elena [facility] Start: 10-19-2023 End: 10-19-2023 ambulatory Lisa Mckeon Other [employer] [employer] Other Start: 10-19-2023 Office outpatient vi sit 15 minutes Lisa Mckeon [facility] Start: 09-13-2023 End: 09-13-2023 ambulatory Iesha Boykin Facility:[facility] Start: 09-13-2023 End: 09-13-2023 Departed Referred [employer] INST[employer]ER-C Iesha Boykin Work Phone: [facility] [employer] Work Phone: Start: 09-13-2023 End: 09-13-2023 ambulatory [employer] INST[employer]ER-C Iesha Boykin Work Phone: [facility] Work Phone: Start: 09-13-2023 Office outpatient ne w 10 minutes Iesha Boykin [facility] Start: 12-20-2022 End: 12-21-[address] DESHAWN JOSEPH Facility:[facility] Start: 12-07-2022 End: 12-08-2022 ambulatory DANNY GERBER Facility:[facility] Procedures Date Procedure Procedure Detail Performing Clinician Start: 09-13-2023 Piperacillin/tazobactam Iesha Boykin Other Plan of Treatment Date Care Activity Detail Author Start: 09-13-2023 Bacteria identified in Urine by Culture [facility] Payers Date Payer Category Payer Medicaid [id number] 2023 Self-pay [id number] 1975 Unknown [id number] 1975 Unknown [id number] 1975 Unknown [id number] 1960 Unknown [id number] Private Health Insurance [facility] [id number] Unknown [id number] Social History Date Type Detail Facility Tobacco smoking status NHIS Unknown if ever smoked [facility] Work Phone: Start: 1975 Sex Assigned At Female F [facility] Sex Assigned At Sex Assigned At Bir th [facility] [employer] Other Evaluation note 12-15-2023 Note Date & [...] Tylenol/Motrin as directed, rx of prednisone and Stapleton as directed, cool mist humidifier, throat lozenges. [...] treatment plan. Patient left in stable condition [place] Other Evaluation note 11-09-2023 Note Date & [...] understanding and is agreeable to treatment plan [place] Other Evaluation note 10-19-2023 Note Date & [...] vision, have change in vision, severe headache. [place] Other Evaluation note 09-13-2023 Note Date & [...] no improvement in 2 to 3 days [place] Other Clinical Note 12-07-2022 Note Date & [...] authenticated by: LOW VEGA Date: 2022-12-07 13:11 [facility] Evaluation note Note Date & Type Note Facility Evaluation note No assessment information availa [facility] Work Phone: History general Narrative - Reported Note Date & Type Note Facility History general Narrative - Reported Type Surgical History tubal ligation Surgical History C section x 2 Surgical History LEEP Hospitalization History see above [place] Other Summary Purpose Family History No Family History Records FoundNo Family History Records FoundNo Family History Records Found Advance Directives No Advanced Directives Records Found Advance Directive Response Recorded Date/ Time Advance Directives No December 05, 2018 9:22am Chief Complaint and Reason for Visit Chief Complaint Dysuria Additional Source Comments INFORMATION SOURCE (unrecogn ized section and content) DATE CREATED AUTHOR 12/24/2022 [facility] DATE CREATED AUTHOR AUTHOR'S ORGANIZ ATION 09/19/2023 [facility] DATE CREATED AUTHOR AUTHOR'S ORGANIZ ATION 01/20/2024 [facility] EPIC Care Teams (unrecognized sec tion and content) [...] BE BASED ON THE PRIMARY CLINICAL RECORDS. [employer] provides no warranty or guarantee of the accuracy or completeness of information in this document.
== END 2024-01-24 10:44 | disposition home or self-care (01) ==
LOC: MAMMO 10:44
PROVIDERS: PCP Nurse Practitioner; Visit Provider Nurse Practitioner
DX: R92.8 Other abnormal and inconclusive findings on diagnostic imaging of breast (principal); Z80.3 Family history of malignant neoplasm of breast
CPT/HCPCS: 76642; 77065

== ENCOUNTER 2024-01-29 15:49 | Outpatient (OUT) | payer OTHER, SELFPAY ==
--- NOTE | 2024-01-29 15:56 | XR_ITS ---
The [address] [address] Patient Name: JO-ANN CARRASCO MRN: [id number] date: 1975 Sex: F Assigned Patient Location: [facility] Current Patient Location: Accession/Order Number: [id number] Exam Date: 01/29/2024 16:02 Report Date: 01/30/2024 07:35 At the request of: SHAIKH SHELBY Procedure: XR chest 2V EXAMINATION: XR chest 2V HISTORY: acute upper respiratory infection J06.9 COMPARISON: No relevant comparison available. TECHNIQUE: PA and lateral FINDINGS: LUNGS: No significant pulmonary parenchymal abnormalities. VASCULATURE: No increased pulmonary vasculature. PLEURA: No pneumothorax, effusion, or pleural thickening. CARDIAC: No cardiomegaly or cardiac silhouette abnormality. MEDIASTINUM: No visible mass or adenopathy. BONES: No fracture or visible bone lesion. Rotatory dextrocurvature with degenerative changes OTHER: Negative. XR/XR chest 2V IMPRESSION: No acute cardiopulmonary process Electronically authenticated by: DESHAWN JOSEPH Date: 01/30/2024 07:35
== END 2024-01-29 15:50 | disposition home or self-care (01) ==
LOC: RAD 15:52
PROVIDERS: PCP Nurse Practitioner; Visit Provider Internal Medicine
DX: J06.9 Acute upper respiratory infection, unspecified (principal)
CPT/HCPCS: 71046

== ENCOUNTER → 2024-02-06 12:59 | Day surgery (SDC) | payer OTHER, SELFPAY ==
--- NOTE | 2024-02-06 | MM_ITS ---
Patient Name: JO-ANN CARRASCO MR#: [id number] : 1975 Exam Date: 02/06/2024 Ordering Doctor: DANNY Georges CNP This report includes an Addendum and supersedes previous reports for this exam. RADIOLOGY REPORT PROCEDURE: MM POST BIOPSY RT COMPARISON: MM STEREOTACTIC LOC RT, 02/06/2024. MM DIAGNOSTIC MAMMO UNILAT RT, 01/24/2024. MM TOMOSYNTHESIS SCREENING BI, 01/09/2024. MG MAMM SCREEN 3D SHANE CAD, 12/20/2022. INDICATIONS: Microcalcifications BREAST COMPOSITION: Extremely dense, which lowers the sensitivity of mammography. FINDINGS: BIOPSY MARKER: A metallic marker has been placed in the targeted location within the upper-outer quadrant, approximately 9 o'clock, of the right breast. BREAST FINDINGS: Expected post biopsy findings. RECOMMENDATIONS: Dictated by: Nelson Mays M.D. on 02/06/2024 at 15:23 Approved by: Nelson Mays M.D. on 02/06/2024 at 15:27 ADDENDUM: FINDINGS: DIAGNOSTIC CATEGORY 3--PROBABLY BENIGN FINDING. THE FOLLOWING FINDING(S) HAS A HIGH PROBABILITY OF A BENIGN ETIOLOGY: RECOMMENDATIONS: SHORT TERM FOLLOW-UP DIAGNOSTIC MAMMOGRAM RIGHT BREAST IN 6 MONTHS. Dictated by: Nelson Mays M.D. on 02/15/2024 at 08:58 Approved by: Nelson Mays M.D. on 02/15/2024 at 08:58
--- NOTE | 2024-02-06 | MM_ITS ---
Patient Name: JO-ANN CARRASOC MR#: [id number] : 1975 Exam Date: 02/06/2024 Ordering Doctor: DANNY Georges CNP This report includes an Addendum and supersedes previous reports for this exam. RADIOLOGY REPORT PROCEDURE: MM STEREOTACTIC LOC RT COMPARISON: MM DIAGNOSTIC MAMMO UNILAT RT, 01/24/2024. MM TOMOSYNTHESIS SCREENING BI, 01/09/2024. MG MAMM SCREEN 3D SHANE CAD, 12/20/2022. MG MAMM SCREEN SHANE W CAD, 09/08/2020. INDICATIONS: ABNORMAL RT BREAST MAMMOGRAM DESCRIPTION: Following informed consent, digital stereotactic mammographic views were obtained to localize the lesion. Multiple vacuum-assisted core biopsies were obtained. Specimen images were obtained to confirm proper sampling. The location of the biopsy was then marked as indicated below. FINDINGS: RECOMMENDATIONS: SPECIMEN #, LOCATION: 5 core samples; upper outer quadrant mid breast.. SPECIMEN IMAGE: Cluster of punctate microcalcifications within core 1, 3, 4, and 5 BIOPSY NEEDLE: 10 gauge Revolve(r) vacuum core biopsy needle. MARKER(S) PLACED: A single metallic marker was placed in the appropriate targeted location. MEDICATION: Buffered 1% lidocaine superficial;1% lidocaine with epinephrine deep. COMPLICATIONS: None. PATHOLOGY / LAB: Pending. CONCLUSION: 1. Technically successful biopsy of the breast lesion. 2. Pathology results are pending. An addendum will be added when pathology results are final. Dictated by: Nelson Mays M.D. on 02/06/2024 at 15:21 Approved by: Nelson Mays M.D. on 02/06/2024 at 15:23 ADDENDUM: Final pathologic diagnosis: Mild fibrocystic change of minor proliferative type... 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 on 02/15/2024 at 08:56 Approved by: Nelson Mays M.D. on 02/15/2024 at 08:57
--- OUTSIDE RECORDS SUMMARY | 2024-02-06 13:21 | XMS_ITS | CCD ---
Author Organization [facility] Care Team Providers Care Autocutter Name Role Phone AICHHOLZ, PRESS TENDER [employer] GUILLERMO Primary Care Unavailable AICHHOLZ, PRESS TENDER [employer] GUILLERMO Consulting Unavailable AICHHOLZ, PRESS TENDER [employer] GUILLERMO Attending Unavailable AICHHOLZ, PRESS TENDER [employer] GUILLERMO Admitting Unavailable DR LOW VEGA Consulting Unavailable DR DESHAWN JOSEPH V Consulting Unavailable AICHHOLZ, PRESS TENDER [employer] GUILLERMO Attending Unavailable AICHHOLZ, PRESS TENDER [employer] GUILLERMO Admitting Unavailable AICHHOLZ, PRESS TENDER [employer] GUILLERMO Primary Care Unavailable AICHHOLZ, PRESS TENDER [employer] GUILLEMRO Consulting Unavailable LEANNE Boykin Attending Provider [phone] Iesha Boykin Unavailable Iesha Boykin Admitting Unavailable Iesha Boykin Attending Unavailable Lisa Mckeon Unavailable Sonal Elena Unavailable SHAIKH RYAN Attending Unavailable SHAIKH RYAN Attending Unavailable Medications Current Medications Medication Drug Class(es) Dates Sig (Normalized) Sig (Original) dextromethorphan hydrobromide 1.5 mg/ml / pyrilamine maleate 1.5 mg/ml oral solution (1 source) Uncompetitive E-sqbtzd-X-aspartat e Receptor Antagonist, Sigma-1 Agonist Start: 12-15-2023 take 10 mL by mouth every eight hours Davidson DM 7.5-7.5 MG/5ML 10 mL Orally every [...] mg Start: 05-05-2020 Toradol per 15 mg Apr, 30 mg methylPREDNISolone 4 mg oral tablet [...] (COVID-19) RNA SHARMILA+probe Ql (Unsp spec) Negative [facility] Other COVID + FLU Quick Testing Negative [facility] Other Urinalysis - AUTOMATEDon Appearance (U) clear [employer] [employer] Other Bilirubin Ql (U) Negative [employer] Other Color (U) yellow [facility] Other Glucose Ql (U) Negative [employer] [facility]) Other Hemoglobin Ql (U) large [employer] Other Ketones Ql (U) Positive [employer]) Other Leukocyte esterase Test strip Ql (U) moderate [facility] Other Nitrite Ql (U) Positive [employer]) Other pH (U) 6.5 [pH] [facility] Other Protein Ql (U) Negative [employer] [facility]) Other Specific gravity (U) [Rel density] 1.025 [facility] Other Urobilinogen (U) [Mass/Vol] 0.2 mg/dL [facility] Other Urinalysis - AUTOMATED [facility] Other Urine Cultureon 09-13-2023 Bacteria identified Cx Nom (U) Reason for Exam Dysuria Urine ORGANISM: Escherichia coli (O:ESCCOL) [place] Count >100,000 Aerobic LETTY Charge (NMIC56) ----- [...] RESISTANT TO ALL B-LACTAM DRUGS. PERFORMED BY: [facility] [address] [place] [address] PATHOLOGIST CALENDER RUNNER TEVIN JENKINS M.D. Normal [facility] Comment on above: Performed By: #### C UU #### [facility] [address] [place], [place] [id number] [facility] Urine Culture >100,000 [facility] Other Urine Culture <16 Susceptible [employer] [facility] [employer]) Other Urine Culture <8/4 Susceptible [employer] [facility] [employer]) Other Urine Culture <8 Susceptible [employer] [facility] [employer]) Other Urine Culture <4 Susceptible [employer] [facility] [employer]) Other Urine Culture <2 Susceptible [employer] [facility] [employer]) Other Urine Culture <1 Susceptible [employer] [facility] [employer]) Other Urine Culture <0.25 Susceptible [employer] [facility] [employer]) Other Urine Culture <0.5 Susceptible [employer] [facility] [employer]) Other Urine Culture <32 Susceptible [employer] [facility] [employer]) Other Urine Culture <0.5/9.5 Susceptible [employer] [facility] [employer]) Other MG MAMM SCREEN 3D SHANE CADon 12-20-2022 MG MAMM SCREEN 3D SHANE CAD Patient: JO-ANN CARRASCO Exam Date: 12/20/2022 : 1975 Gender:F Ordering : DANNY GUILLERMO [facility] Admission #: [id number] Family : Order #: [id number] CLICK HERE TO VIEW EXAM RADIOLOGY REPORT [...] breast cancer at age 49. LOCATION: [facility] BREAST COMPOSITION: Extremely dense, which lowers [...] MD on 12/21/2022 at 06:16 Normal [facility] Vital Signs Date Time Vital Sign Value Performing Clinician Facility 12-15-2023 15:50-0500 Body height 165.1 cm Sonal Elena Other [facility] Other 12-15-2023 15:50-0500 Body mass index (BMI) [Ratio] 29.95 kg/m2 Sonal Elena Other [facility] Other 12-15-2023 15:50-0500 Body temperature 98.1 [degF] Sonal Elena Other [facility] Other 12-15-2023 15:50-0500 Body weight 81.65 kg Sonal Elena Other [facility] Other 12-15-2023 15:50-0500 Diastolic blood pressure 94 mm[Hg] Sonal Elena Other [facility] Other 12-15-2023 15:50-0500 Respiratory rate 18 /min Sonal Elena Other [facility] Other 12-15-2023 15:50-0500 SaO2% (BldA) [Mass fraction] 99 % Sonal Elena Other [facility] Other 12-15-2023 15:50-0500 Systolic blood pressure 141 mm[Hg] Sonla Elena Other [facility] Other 11-09-2023 15:30-0500 Body height 165.1 cm Sonal Elena Other [facility] Other 11-09-2023 15:30-0500 Body mass index (BMI) [Ratio] 29.88 kg/m2 Sonal Elena Other [facility] Other 11-09-2023 15:30-0500 Body temperature 97.3 [degF] Sonal Elena Other [facility] Other 11-09-2023 15:30-0500 Body weight 81.47 kg Sonal Elena Other [facility] Other 11-09-2023 15:30-0500 Diastolic blood pressure 85 mm[Hg] Sonal Elena Other [facility] Other 11-09-2023 15:30-0500 Respiratory rate 18 /min Sonal Elena Other [facility] Other 11-09-2023 15:30-0500 SaO2% (BldA) [Mass fraction] 99 % Sonal Elena Other [facility] Other 11-09-2023 15:30-0500 Systolic blood pressure 129 mm[Hg] Sonal Elena Other [facility] Other 10-19-2023 15:45-0500 Body height 165.1 cm Lisa Linda Other [facility] Other 10-19-2023 15:45-0500 Body mass index (BMI) [Ratio] 29.28 kg/m2 Lisa Linda Other [facility] Other 10-19-2023 15:45-0500 Body temperature 98.1 [degF] Lisa Linda Other [facility] Other 10-19-2023 15:45-0500 Body weight 79.83 kg Lisa Linda Other [facility] Other 10-19-2023 15:45-0500 Diastolic blood pressure 91 mm[Hg] Lisa Linda Other [facility] Other 10-19-2023 15:45-0500 Respiratory rate 18 /min Lisa Linda Other [facility] Other 10-19-2023 15:45-0500 SaO2% (BldA) [Mass fraction] 98 % Lisa Linda Other [facility] Other 10-19-2023 15:45-0500 Systolic blood pressure 140 mm[Hg] Lisa Linda Other [facility] Other 09-13-2023 13:55-0500 Body height 165.1 cm Iesha Boykin Other [facility] Other 09-13-2023 13:55-0500 Body mass index (BMI) [Ratio] 29.62 kg/m2 Iesha Boykin Other [facility] Other 09-13-2023 13:55-0500 Body temperature 97.9 [degF] Iesha Boykin Other [facility] Other 09-13-2023 13:55-0500 Body weight 80.74 kg Iesha Boykin Other [facility] Other 09-13-2023 13:55-0500 Respiratory rate 18 /min Iesha Boykin Other [facility] Other 09-13-2023 13:55-0500 SaO2% (BldA) [Mass fraction] 98 % Iesha Boykin Other [facility] Other Encounters Encounter Date Encounter Type Care Provider Facility Start: 01-29-2024 End: 01-29-2024 ambulatory ARDON FAJuanWAD Not Available Start: 01-18-2024 End: 01-18-2024 ambulatory ARDON FAWWAD Not Available Start: 12-15-2023 End: 12-15-2023 ambulatory Sonal Elena Other [facility] Other Start: 12-15-2023 Office outpatient vi sit 25 minutes Sonal Elena [facility] Start: 11-09-2023 End: 11-09-2023 ambulatory Sonal Elena Other [facility] Other Start: 11-09-2023 Office outpatient vi sit 25 minutes Sonal Elena [facility] Start: 10-19-2023 End: 10-19-2023 ambulatory Lisa Linda Other [facility] [employer] Other Start: 10-19-2023 Office outpatient vi sit 15 minutes Lisa Linda [facility] Start: 09-13-2023 End: 09-13-2023 ambulatory Iesha Boykin Facility:[facility] Start: 09-13-2023 End: 09-13-2023 Departed Referred EMPLOYMENT COORDINATOR-C Iesha Boykin Work Phone: [facility] Work Phone: Start: 09-13-2023 End: 09-13-2023 ambulatory EMPLOYMENT COORDINATOR-C Iesha Boykin Work Phone: [facility] Work Phone: Start: 09-13-2023 Office outpatient ne w 10 minutes Ieshagracy Boykin [facility] Start: 12-20-2022 End: 12-21-[address] DESHAWN JOSEPH Facility:[facility] Start: 12-07-2022 End: 12-08-2022 ambulatory DANNY HERNANDEZA BUZZ Facility:[facility] Procedures Date Procedure Procedure Detail Performing Clinician Start: 09-13-2023 Piperacillin/tazobactam Iesha Boykin Other Plan of Treatment Date Care Activity Detail Author Start: 09-13-2023 Bacteria identified in Urine by Culture [facility] Payers Date Payer Category Payer Medicaid [id number] 2023 Self-pay [id number] 1975 Unknown [id number] 1975 Unknown [id number] 1975 Unknown [id number] 1975 Unknown [id number] 1960 Unknown [id number] Private Health Insurance [facility] [place] [id number] Unknown [id number] Social History Date Type Detail Facility Tobacco smoking status NHIS Unknown if ever smoked [facility] Work Phone: Start: 1975 Sex Assigned At Female F [facility] Sex Assigned At Sex Assigned At Bir th [facility] Other Evaluation note 12-15-2023 Note Date [...] Tylenol/Motrin as directed, rx of prednisone and Davidson as directed, cool mist humidifier, throat lozenges. [...] treatment plan. Patient left in stable condition [facility] Other Evaluation note 11-09-2023 Note Date & [...] understanding and is agreeable to treatment plan [facility] Other Evaluation note 10-19-2023 Note Date & [...] vision, have change in vision, severe headache. [facility] Other Evaluation note 09-13-2023 Note Date & [...] no improvement in 2 to 3 days [facility] Other Clinical Note 12-07-2022 Note Date & [...] by: LOW VEGA Date: 2022-12-07 13:11 [facility] Evaluation note Note Date & Type Note Facility Evaluation note No assessment information availa [facility] Work Phone: History general Narrative - Reported Note Date & Type Note Facility History general Narrative - Reported Type Surgical History tubal ligation Surgical History C section x 2 Surgical History LEEP Hospitalization History see above [facility] Other Summary Purpose Family History No Family History Records FoundNo Family History Records FoundNo Family History Records Found Advance Directives No Advanced Directives Records Found Advance Directive Response Recorded Date/ Time Advance Directives No December 05, 2018 9:22am Chief Complaint and Reason for Visit Chief Complaint Dysuria Additional Source Comments INFORMATION SOURCE (unrecogn ized section and content) DATE CREATED AUTHOR 12/24/2022 [facility] DATE CREATED AUTHOR AUTHOR'S ORGANIZ ATION 09/19/2023 [facility] DATE CREATED AUTHOR AUTHOR'S ORGANIZ ATION 01/30/2024 [facility] [employer] Care Teams (unrecognized sec tion and content) Team Status: Inactive Member Role Status Dates LEANNE Chu Attending Provider Active Goals (unrecognized section and [...] BE BASED ON THE PRIMARY CLINICAL RECORDS. [facility] [employer] [facility]. provides no warranty or guarantee of the accuracy or completeness of information in this document.
[2024-02-06 14:58] VITALS: BMI 29.6
--- NOTE | 2024-02-06 15:04 | PC.NURSE ---
1345:Patient in this day for stereotactic right breast biopsy. Patient educated on procedure along with d/c orders. Patient provided written instructions as well. Dr. Mays educates patient as well on procedure. 1404: timeout performed with Dr. Mays, Ritesh Marte RN, and Amberly Cuello [facility] present. 1405: Procedure initiated 1430: patient d/c home ambulatory without c/o. Bandage to right breast dry and intact. 1410: specimen sent to lab in formalin.
[2024-02-06] MEDS: LIDOCAINE HCL 1%-EPINEPHRINE 1:100,000 20 ML MDV INJ (15:28)
[2024-02-06] MEDS: LIDOCAINE HCL 1% PF 20 MG/2 ML VIAL 1 ML INJ (15:29)
== END | disposition home or self-care (01) ==
PROVIDERS: Radiology Diagnostic Radiology; PCP Nurse Practitioner; Visit Provider Nurse Practitioner
DX: R92.0 Mammographic microcalcification found on diagnostic imaging of breast (principal); N63.11 Unspecified lump in the right breast, upper outer quadrant; N60.21 Fibroadenosis of right breast
CPT/HCPCS: 19081; 77065; 82948; 88305

== ENCOUNTER 2024-03-16 11:00 | Outpatient (OUT) | payer OTHER, SELFPAY ==
--- OUTSIDE RECORDS SUMMARY | 2024-03-16 11:07 | XMS_ITS | CCD ---
Author Organization [facility] Care Team Providers Care Nuclear Medical Technologist Name Role Phone AICHMARY, IMMIGRATION INVESTIGATOR MICHELLE Primary Care Unavailable AICHHOLZ, IMMIGRATION INVESTIGATOR MICHELLE Consulting Unavailable AICHHOLZ, IMMIGRATION INVESTIGATOR MICHELLE Attending Unavailable AICHHOLZ, IMMIGRATION INVESTIGATOR MICHELLE Admitting Unavailable DR LOW VEGA Consulting Unavailable JAKE, DR DESHAWN Liao Consulting Unavailable AICHHOLZ, IMMIGRATION INVESTIGATOR MICHELLE Attending Unavailable AICHHOLZ, DANNY MICHELLE Admitting Unavailable AICHHOLZ, IMMIGRATION INVESTIGATOR MICHELLE Primary Care Unavailable AICHHOLZ, IMMIGRATION INVESTIGATOR MICHELLE Consulting Unavailable LEANNE Boykin Attending Provider Iesha Boykin Unavailable Lisa Mckeon Unavailable Sonal Elena Unavailable Michelle Georges Primary Care Provider Michelle Georges Attending Provider Michelle Georges Admitting Unavailable Michelle Georges Attending Unavailable José Manuel Michelle Butch Primary Care Unavailable Iesha Boykin Admitting Unavailable Iesha Boykin Attending Unavailable SHAIKH RYAN Attending Unavailable SHAIKH RYAN Attending Unavailable SHAIKH RYAN Attending Unavailable MICHELLE GEORGES Attending Unavailable Medications Current Medications Medication Drug Class(es) Dates Sig (Normalized) Sig (Original) dextromethorphan hydrobromide 1.5 mg/ml / pyrilamine maleate 1.5 mg/ml oral solution (1 source) Uncompetitive N-wusrge-D-aspartat e Receptor Antagonist, Sigma-1 Agonist Start: 12-15-2023 take 10 mL by mouth every eight hours Patillas DM 7.5-7.5 MG/5ML 10 mL Orally every [...] Classification Problem Date Documented Da te Episodic/Chronic Other ear and sense organ disorders (6 [...] sources) Dysuria; Translations: [Dysuria] Onset: 09-13-2023 Episodic Unclassified (1 source) Contact with and (suspected) exposure to covid-19 Z20.822 Results Test Name Value Interpretation Reference Range Facility [facility] 02-06-2024 L Specimen: [id number] Received: 02/07/24 Status: TARAN Everett Num: [id number] Spec Type: Surgical Subm Dr: LEANNE Stapleton Tissues: A Breast Core CALCIFICATIONS (RT BREAST MASS) Procedures: HE/4, Gross/Micro L4 Age/ Patient Sex Location Account Attending Physician Ariana Mitchell 48/F LABELL [id number] LEANNE Stapleton SPEC NUM: [id number] RECD: 02/07/24 STATUS: TARAN EVERETT NUM: [id number] PAOLO: 02/06/24 DR: LEANNE Stapleton ENTERED: 02/07/[address] [facility] DR: Yoly Sorensen SPEC TYPE: Surgical DEPT: NAA PAN ORDERED: HE/4, Gross/Micro L4 ORDERED: HE/4, Gross/Micro L4 Pathological Diagnosis Right breast mass, stereotactic biopsies: -Mild fibrocystic change of the only minor proliferative type, including patchy small and/or slightly dilated glandular adenosis with occasional columnar cell change and columnar cell hyperplasia, and only occasional rare mild ductal epithelial hyperplasia of the usual type (UDH), and the occasional scattered microcalcifications in loose clustering within the dilated adenosis glands, otherwise without malignancy or any atypical epithelial hyperplasia identified, also are compatible with benign microcalcifications Clinical Information Right breast mass and microcalcifications Gross Description A, received in formalin with patient name and date of , labeled as right breast mass, are 5 core biopsy fragments of aj-yellow breast soft tissue, measuring about 1 to 1.5 x 0.3 x 0.2 cm each. Totally submitted in 2 cassettes. CPT Codes 92093 Specimen: [id number] Received: 02/07/24 Status: TARAN Everett Num: [id number] Spec Type: Surgical Subm Dr: Michelle Georges, CASE PACKER AND SEALER-C Tissues: A Breast Core CALCIFICATIONS (RT BREAST MASS) Procedures: HE/4, Gross/Micro L4 Patient: Ariana Mitchell [id number] (Continued) Signed (signature on file) Shama Kwon MD 02/10/24 1844 [facility] COVID + FLU Quick Testingon 12-15-2023 SARS-CoV-2 (COVID-19) RNA SHARMILA+probe Ql (Unsp spec) Negative Maintenance Assistant Other COVID + FLU Quick Testing Negative Maintenance Assistant Other Urinalysis - AUTOMATEDon Appearance (U) clear [employer] Other Bilirubin Ql (U) Negative [employer] Other Color (U) yellow Maintenance Assistant Other Glucose Ql (U) Negative [employer] Other Hemoglobin Ql (U) large [employer] Other Ketones Ql (U) Positive [employer] Other Leukocyte esterase Test strip Ql (U) moderate Maintenance Assistant Other Nitrite Ql (U) Positive [employer] Other pH (U) 6.5 [pH] Maintenance Assistant Other Protein Ql (U) Negative [employer] Other Specific gravity (U) [Rel density] 1.025 Maintenance Assistant Other Urobilinogen (U) [Mass/Vol] 0.2 mg/dL Maintenance Assistant Other Urinalysis - AUTOMATED Maintenance Assistant Other Urine Cultureon 09-13-2023 Bacteria identified Cx Nom (U) Reason for Exam Dysuria Urine ORGANISM: Escherichia coli (O:ESCCOL) Hood Count >100,000 Aerobic LETTY Charge (NMIC56) - SUSCEPTIBILITY ORGANISM: O:ESCCOL ANTIBIOTIC INTERPRETATION LETTY Amikacin S <16 Amoxacillin/K Clavulanate S <8 Ampicillin S <8 Ampicillin/Sulbactam S <4 Aztreonam S <4 Cefazolin S <2 Cefepime S <2 Ceftazidime S <1 Ceftazidime/Avibactam S <4 Ceftolozane/Tazobactam S <2 Ceftriaxone S <1 Cefuroxime S <4 Ciprofloxacin S <0.25 Ertapenem S <0.5 Gentamicin S <2 Levofloxacin S <0.5 Meropenem S <1 Meropenem/Vaborbactam S <2 Nitrofurantoin S <32 Piperacillin/Tazobactam S <8 Tetracycline S <4 Tigecycline S <2 Tobramycin S <2 Trimethoprim/Sulfamethox azole S <0.5 S = SUSCEPTIBLE I = [...] RESISTANT TO ALL B-LACTAM DRUGS. PERFORMED BY: [place] [address] PATHOLOGIST CITY ADMINISTRATOR TEVIN JENKINS M.D. [facility] Comment on above: Performed By: #### C UU #### [address] Urine Culture >100,000 Maintenance Assistant Other Urine Culture <16 Susceptible [employer] Other Urine Culture <8/4 Susceptible [employer] Other Urine Culture <8 Susceptible [employer] Other Urine Culture <4 Susceptible [employer] Other Urine Culture <2 Susceptible [employer] Other Urine Culture <1 Susceptible [employer] Other Urine Culture <0.25 Susceptible [employer] Other Urine Culture <0.5 Susceptible [employer] Other Urine Culture <32 Susceptible [employer] Other Urine Culture <0.5/9.5 Susceptible [employer] Other MG MAMM SCREEN 3D SHANE CADon 12-20-2022 MG MAMM SCREEN 3D SHANE CAD Patient: ARIANA MITCHELL. Exam Date: 12/20/2022 : 1975 Gender:F Ordering : DANNY GEORGES IMMIGRATION INVESTIGATOR Admission #: [id number] Family : Order #: [id number] CLICK HERE TO VIEW EXAM RADIOLOGY REPORT [...] breast cancer at age 49. LOCATION: [facility] BREAST COMPOSITION: Extremely dense, which [...] MD on 12/21/2022 at 06:16 Normal [facility] Vital Signs Date Time Vital Sign Value Performing Clinician Facility 12-15-2023 15:50-0500 Body height 165.1 cm Sonal Elena Other Maintenance Assistant Other 12-15-2023 15:50-0500 Body mass index (BMI) [Ratio] 29.95 kg/m2 Sonal Elena Other Maintenance Assistant Other 12-15-2023 15:50-0500 Body temperature 98.1 [degF] Sonal Elena Other Maintenance Assistant Other 12-15-2023 15:50-0500 Body weight 81.65 kg Sonal Elena Other Maintenance Assistant Other 0209-2024 15:50-0500 Diastolic blood pressure 94 mm[Hg] Sonal Elena Other Maintenance Assistant Other 12-15-2023 15:50-0500 Respiratory rate 18 /min Sonal Elena Other Maintenance Assistant Other 12-15-2023 15:50-0500 SaO2% (BldA) [Mass fraction] 99 % Sonal Elena Other Maintenance Assistant Other 12-15-2023 15:50-0500 Systolic blood pressure 141 mm[Hg] Sonal Elena Other Maintenance Assistant Other 11-09-2023 15:30-0500 Body height 165.1 cm Sonal Elena Other Maintenance Assistant Other 11-09-2023 15:30-0500 Body mass index (BMI) [Ratio] 29.88 kg/m2 Sonal Elena Other Maintenance Assistant Other 11-09-2023 15:30-0500 Body temperature 97.3 [degF] Sonal Elena Other Maintenance Assistant Other 11-09-2023 15:30-0500 Body weight 81.47 kg Sonal Elena Other Maintenance Assistant Other 11-09-2023 15:30-0500 Diastolic blood pressure 85 mm[Hg] Sonal Elena Other Maintenance Assistant Other 11-09-2023 15:30-0500 Respiratory rate 18 /min Sonal Elena Other Maintenance Assistant Other 11-09-2023 15:30-0500 SaO2% (BldA) [Mass fraction] 99 % Sonal Elena Other Maintenance Assistant Other 11-09-2023 15:30-0500 Systolic blood pressure 129 mm[Hg] Sonal Ulices Other Maintenance Assistant Other 10-19-2023 15:45-0500 Body height 165.1 cm Lisa Linda Other Maintenance Assistant Other 10-19-2023 15:45-0500 Body mass index (BMI) [Ratio] 29.28 kg/m2 Lisa Linda Other Maintenance Assistant Other 10-19-2023 15:45-0500 Body temperature 98.1 [degF] Lisa Linda Other Maintenance Assistant Other 10-19-2023 15:45-0500 Body weight 79.83 kg Lisa Linda Other Maintenance Assistant Other 10-19-2023 15:45-0500 Diastolic blood pressure 91 mm[Hg] Lisa Linda Other Maintenance Assistant Other 10-19-2023 15:45-0500 Respiratory rate 18 /min Lisa Linda Other Maintenance Assistant Other 10-19-2023 15:45-0500 SaO2% (BldA) [Mass fraction] 98 % Lisa Linda Other Maintenance Assistant Other 10-19-2023 15:45-0500 Systolic blood pressure 140 mm[Hg] Lisa Linda Other Maintenance Assistant Other 09-13-2023 13:55-0500 Body height 165.1 cm Iesha Boykin Other Maintenance Assistant Other 09-13-2023 13:55-0500 Body mass index (BMI) [Ratio] 29.62 kg/m2 Iesha Boykin Other Maintenance Assistant Other 09-13-2023 13:55-0500 Body temperature 97.9 [degF] Iesha Boykin Other Maintenance Assistant Other 09-13-2023 13:55-0500 Body weight 80.74 kg Iesha Boykin Other Maintenance Assistant Other 09-13-2023 13:55-0500 Respiratory rate 18 /min Iesha Boykin Other Maintenance Assistant Other 09-13-2023 13:55-0500 SaO2% (BldA) [Mass fraction] 98 % Iesha Boykin Other Maintenance Assistant Other Encounters Encounter Date Encounter Type Care Provider Facility Start: 02-29-2024 End: 02-29-2024 ambulatory MICHELLE GEORGES Not Available Start: 02-06-2024 End: 02-06-2024 ambulatory Michelle Butch Georges Facility:[facility] Start: 02-06-2024 End: 02-06-2024 ambulatory Michelle Georges Work Phone: [facility] Work Phone: Start: 02-06-2024 End: 02-06-2024 Departed Referred Michelle Georges Work Phone: [facility] Start: 02-06-2024 End: 02-06-2024 ambulatory ARDON FAWWAD Not Available Start: 01-29-2024 End: 01-29-2024 ambulatory ARDON FAWWAD Not Available Start: 01-18-2024 End: 01-18-2024 ambulatory ARDON FAWWAD Not Available Start: 12-15-2023 End: 12-15-2023 ambulatory Sonal Elena Other Maintenance Assistant Other Start: 12-15-2023 Office outpatient vi sit 25 minutes Sonal Elena [facility] Start: 11-09-2023 End: 11-09-2023 ambulatory Sonal Elena Other Maintenance Assistant Other Start: 11-09-2023 Office outpatient vi sit 25 minutes Sonal Elena [facility] Start: 10-19-2023 End: 10-19-2023 ambulatory Lisa Linda Other Maintenance Assistant Other Start: 10-19-2023 Office outpatient vi sit 15 minutes Lisa Linda [facility] Start: 09-13-2023 End: 09-13-2023 ambulatory Iesha Boykin Facility:[facility] Start: 09-13-2023 End: 09-13-2023 Departed Referred [employer] P[employer]ER [employer] SEALER-C Iesha Lucretia Work Phone: [facility] Work Phone: Start: 09-13-2023 End: 09-13-2023 ambulatory [employer] PACKER AND SEALER-C Iesha Lucretia Work Phone: [facility] Work Phone: Start: 09-13-2023 Office outpatient ne w 10 minutes Iesha Lucretia [facility] Start: 12-20-2022 End: 12-21-[address] DESHAWN JOSEPH Facility:[facility] Start: 12-07-2022 End: 12-08-2022 ambulatory DANNY GEORGES Facility:[facility] Procedures Date Procedure Procedure Detail Performing Clinician Start: 09-13-2023 Piperacillin/tazobactam Iesha Lucretia Other Plan of Treatment Date Care Activity Detail Author Start: 09-13-2023 Bacteria identified in Urine by Culture [facility] Payers Date Payer Category Payer Medicaid [id number] 2023 Self-pay [id number] 1975 Unknown [id number] 593 1975 Unknown [id number]. 593 1975 Unknown [id number]. 1259 1975 Unknown [id number]. 1259 1975 Unknown [id number] [id number]. 1259 1975 Unknown [id number] [id number]. 1259 1959 Unknown [id number] Private Health Insurance [facility] [id number] Unknown [id number]. 531 Unknown [id number]. 531 Social History Date Type Detail Facility Tobacco smoking status NHIS Unknown if ever smoked [facility] Work Phone: Start: 1975 Sex Assigned At Female F [facility] Sex Assigned At Sex Assigned At Bir th [facility] [employer] Other Start: 03-26-2019 Tobacco smoking status NHIS Never smoked tobacco (finding) [facility] Evaluation note 12-15-2023 Note Date & Type [...] Tylenol/Motrin as directed, rx of prednisone and Patillas as directed, cool mist humidifier, throat lozenges. [...] treatment plan. Patient left in stable condition Maintenance Assistant Other Evaluation note 11-09-2023 Note Date & [...] understanding and is agreeable to treatment plan Maintenance Assistant Other Evaluation note 10-19-2023 Note Date & [...] vision, have change in vision, severe headache. Maintenance Assistant Other Evaluation note 09-13-2023 Note Date & [...] no improvement in 2 to 3 days Maintenance Assistant Other Clinical Note 12-07-2022 Note Date & [...] authenticated by: LOW VEGA Date: 2022-12-07 13:11 [facility] Evaluation note Note Date & Type Note Facility Evaluation note No assessment information availa [facility] Work Phone: History general Narrative - Reported Note Date & Type Note Facility History general Narrative - Reported Type Surgical History tubal ligation Surgical History C section x 2 Surgical History LEEP Hospitalization History see above Maintenance Assistant Other Summary Purpose Family History No Family History Records Found Relationship Condition Age at Onset Recorded Date/T denisha Not Specified Diabetes mellitus Unknown Heart disease Unknown Unknown Advance Directives No Advanced Directives Records Found Advance Directive Response Recorded Date/ Time Advance Directives No December 05, 2018 9:22am Advance Directive Response Recorded Date/ Time Advance Directives No December 05, 2018 10:22am Chief Complaint and Reason for Visit Chief Complaint Dysuria Chief Complaint Unknown Additional Source Comments INFORMATION SOURCE (unrecogn ized section and content) DATE CREATED AUTHOR 12/24/2022 [facility] DATE CREATED AUTHOR AUTHOR'S ORGANIZ ATION 02/10/2024 [facility] DATE CREATED AUTHOR AUTHOR'S ORGANIZ ATION 03/02/2024 [facility] [employer] Care Teams (unrecognized sec tion and content) Team Status: Inactive Member Role Status Dates LEANNE Chu Attending Provider Active Team Status: Active Member Role Status Dates Michelle Georges Primary Care Provider Active Team Status: Inactive Member Role Status Dates Michelle Georges Primary Care Provide r, Attending Provider Active Start: February 06, 2024 End: February 06, 2024 Goals (unrecognized section and content) Goals may be documented in a n alternate sectionNo InformationNo InformationNo InformationNo InformationNo InformationNo InformationGoals may be documented in an alternate section REASON FOR VISIT (unrecogniz ed section and [...] BE BASED ON THE PRIMARY CLINICAL RECORDS. [employer] provides no warranty or guarantee of the accuracy or completeness of information in this document.
[2024-03-16 11:28] LABS: Basophils Absolute Auto 0.1 10^3/uL (0.0-0.1); Basophils Percent Auto 1.2 % (0.2-2.0); Eosinophils Absolute Auto 0.3 10^3/uL (0.0-0.7); Eosinophils Percent Auto 4.8 % (0.9-7.0); Hematocrit 41.5 % (36.0-48.0); Hemoglobin 13.7 g/dL (12.0-16.0); Immature Granulocytes Abs Auto 0.01 10^3/uL (0.00-0.03); Immature Granulocytes Pct Auto 0.2 % (0.0-0.5); Lymphocytes Percent Auto 34.9 % (20.5-60.0); Mean Corpuscular Hemoglobin 30.1 pg (26.7-34.0); Mean Corpuscular Volume 91.2 fL (81.0-99.0); Monocytes Absolute Auto 0.6 10^3/uL (0.3-0.8); Monocytes Percent Auto 10.6 % (1.7-12.0); Neutrophils Absolute Auto 2.8 10^3/uL (1.4-6.5); Neutrophils Percent Auto 48.3 % (43.0-75.0); Platelet Count 263 10^3/uL (150-450); Red Blood Count 4.55 10^6/uL (4.20-5.40); Red Cell Distribution Width 12.3 % (11.0-15.0); White Blood Count 5.7 10^3/uL (4.0-11.0)
[2024-03-16 11:32] LABS: Bilirubin Urine NEGATIVE (NEGATIVE); Blood Urine NEGATIVE (NEGATIVE); Clarity Urine CLEAR (CLEAR); Color Urine LT. YELLOW (YELLOW); Glucose Urine UA NEGATIVE (NEGATIVE); Ketones Urine NEGATIVE (NEGATIVE); Leukocyte Esterase Urine NEGATIVE (NEGATIVE); Nitrite Urine NEGATIVE (NEGATIVE); Protein Urine NEGATIVE (NEG/TRACE); Specific Gravity Urine 1.015 (1.005-1.025); Urobilinogen Urine 0.2 EU/dL (0.2-1.0); pH Urine 7.5 (5.0-9.0)
[2024-03-16 11:56] LABS: Bacteria Urine NONE SEEN #/HPF (NONE SEEN); Cast Seen? NONE SEEN #/LPF (NONE SEEN); Crystals Seen? None Seen #/HPF (None Seen); Mucus Urine NONE SEEN (NONE SEEN); RBC Urine NONE SEEN #/HPF (0-2); Squamous Epithelial Cell Urine RARE #/LPF (NONE/RARE); WBC Urine NONE SEEN #/HPF (NONE SEEN)
[2024-03-16 12:43] LABS: Alanine Aminotransferase 27 U/L (14-59); Albumin Globulin Ratio 1.3; Albumin Level 3.9 g/dL (3.4-5.0); Alkaline Phosphatase 59 U/L (46-116); Anion Gap 12.4; Aspartate Amino Transferase 15 U/L (15-37); BUN Creatinine Ratio 26.7; Bilirubin Total 0.6 mg/dL (0.2-1.0); Calcium 9.1 mg/dL (8.5-10.1); Carbon Dioxide 27.5 mmol/L (21.0-32.0); Chloride 105 mmol/L (98-107); Chol HDL Ratio 3.4; Cholesterol 216 mg/dL (<=200); Estimated GFR (African America >60 (>=60); Estimated GFR (Non-African Ame >60 (>=60); Globulin 2.9 g/dL; Glucose 87 mg/dL (74-106); HDL Cholesterol 63 mg/dL (40-60); Potassium 3.9 mmol/L (3.5-5.1); Sodium 141 mmol/L (136-145); Thyroid Stimulating Hormone 2.379 uIU/mL (0.358-3.740); Total Protein 6.8 g/dL (6.4-8.2); Triglycerides 84 mg/dL (<=150); VLDL CHOLESTEROL 16.8 mg/dL
== END 2024-03-16 11:01 | disposition home or self-care (01) ==
LOC: LAB 11:05
PROVIDERS: PCP Nurse Practitioner; Visit Provider Nurse Practitioner
DX: Z00.00 Encounter for general adult medical examination without abnormal findings (principal)
CPT/HCPCS: 36415; 80053; 80061; 81001; 84443; 85025

== ENCOUNTER 2024-04-09 07:34 | Outpatient (RCR) | payer OTHER, SELFPAY | END 2024-04-09 14:09 | disposition home or self-care (01) | LOC: INF 07:34 | PROVIDERS: PCP Nurse Practitioner; Visit Provider Internal Medicine Hematology & Oncology | DX: R93.89 Abnormal findings on diagnostic imaging of other specified body structures (principal); N60.81 Other benign mammary dysplasias of right breast | CPT/HCPCS: G0463 ==

== ENCOUNTER 2024-10-15 07:46 | Outpatient (RCR) | payer OTHER, SELFPAY | END 2024-10-15 15:28 | disposition home or self-care (01) | LOC: HEMC 07:46 | PROVIDERS: PCP Nurse Practitioner; Visit Provider Internal Medicine Hematology & Oncology | DX: N60.81 Other benign mammary dysplasias of right breast (principal); D05.11 Intraductal carcinoma in situ of right breast; Z80.3 Family history of malignant neoplasm of breast; R93.89 Abnormal findings on diagnostic imaging of other specified body structures | CPT/HCPCS: G0463 ==

== ENCOUNTER 2024-10-22 15:48 | Outpatient (OUT) | payer OTHER, SELFPAY ==
--- OUTSIDE RECORDS SUMMARY | 2024-10-22 15:51 | XMS_ITS | CCD ---
Author Organization [facility] Care Team Providers Care Sports Physician Name Role Phone AICHHOLZ, OPERATIONS DIRECTOR MICHELLE Primary Care Unavailable AICHHOLZ, OPERATIONS DIRECTOR MICHELLE Consulting Unavailable AICHHOLZ, OPERATIONS DIRECTOR MICHELLE Attending Unavailable AICHHOLZ, OPERATIONS DIRECTOR MICHELLE Admitting Unavailable DR LOW VEGA Consulting Unavailable DR DESHAWN JOSEPH V Consulting Unavailable AICHHOLZ, OPERATIONS DIRECTOR MICHELLE Attending Unavailable AICHHOLZ, OPERATIONS DIRECTOR MICHELLE Admitting Unavailable AICHHOLZ, OPERATIONS DIRECTOR MICHELLE Primary Care Unavailable AICHHOLZ, OPERATIONS DIRECTOR MICHELLE Consulting Unavailable LEANNE Boykin Attending Provider Iesha Boykin Unavailable Lisa Mckeon Unavailable Sonal Elena Unavailable José Manuel Michelle Butch Primary Care Provider Michelle Georges Attending Provider José Manuel Michelle Butch Admitting Unavailable José Manuel Michelle J Attending Unavailable José Manuel, Michelle J Primary Care Unavailable Iesha Boykin Admitting Unavailable Iesha Boykin Attending Unavailable Yehjane KITCHEN CHEF, Michelle Unavailable Kleber Boggs MD Primary Care Provider [phone] José Manuel KITCHEN CHEF, Michelle Unavailable SHAIKH RYAN Attending Unavailable SHAIKH RYAN Attending Unavailable SHAIKH RYAN Attending Unavailable MICHELLE GEORGES Attending Unavailable MICHELLE GEORGES Attending Unavailable JOSÉ MANUEL MICHELLE Attending Unavailable Medications Current Medications Medication Drug Class(es) Dates Sig (Normalized) Sig (Original) dextromethorphan hydrobromide 1.5 mg/ml / pyrilamine maleate 1.5 mg/ml oral solution (1 source) Uncompetitive O-eoiepm-D-aspartat e Receptor Antagonist, Sigma-1 Agonist Start: 12-15-2023 take 10 mL by mouth every eight hours [place] DM 7.5-7.5 MG/5ML 10 mL Orally every 8 hours for 5 days Dec, Active meloxicam 15 mg oral tablet (3 sources) Nonsteroidal Anti-inflammatory Drug Start: 03-27-2024 take 1 tablet by mouth once daily as needed meloxicam (Mobic) 15 MG tablet Take 15 mg by mouth Daily Pt is taking PRN 03/27/2024 Active predniSONE 20 mg oral tablet (3 [...] Classification Problem Date Documented Da te Episodic/Chronic Disorders of lipid metabolism (4 sources) Mixed hyperlipidemia; Translations: [Mixed hyperlipidemia] Onset: 09-30-2024 09-30-2024 Chronic Immunizations and screening for infectious disease (4 sources) Needs influenza immunization; Translations: [Encounter for immunization] Onset: 09-30-2024 09-30-2024 Episodic Other ear and sense organ disorders (6 sources) Otitis externa; Translations: [Unspecified otitis externa, right ear] Chronic Other eye disorders (1 source) Conjunctival hemorrhage, left eye Episodic Other non-traumatic joint disorders (4 sources) Effusion, left ankle; Translations: [EFFUSION LEFT ANKLE] Onset: 12-07-2022 Episodic Other nutritional; endocrine; and metabolic disorders (5 sources) Body mass index 25-29 - overweight; Translations: [Overweight] Onset: 04-02-2024 04-02-2024 Episodic Other screening for suspected conditions (not mental disorders or infectious disease) (14 sources) Encounter for screening mammogram for malignant neoplasm of breast; Translations: [Mammography abnormal] Onset: 12-20-2022 Episodic Other upper respiratory disease (6 sources) Allergic rhinitis; Translations: [Allergic rhinitis, unspecified] Chronic Residual codes; unclassified (1 source) Family history of malignant neoplasm of breast; Translations: [FAMILY HX MALIG NEOPLASM OF BREAST] Onset: 12-23-2022 Episodic Spondylosis; intervertebral disc disorders; other back problems (12 sources) Sciatica; Translations: [Sciatica, left side] Episodic Urinary tract infections (3 sources) Acute cystitis with hematuria Episodic Past or Other Problems Problem Classification Problem Date Documented Date Episodic/Chronic Blindness and vision defects (3 sources) Astigmatism; Translations: [Unspecified astigmatism, unspecified eye] Onset: 09-13-2012 01-18-2024 Episodic Genitourinary symptoms and ill-defined conditions (4 sources) Dysuria; Translations: [Dysuria] Onset: 09-13-2023 Episodic Other connective tissue disease (3 sources) H/O: gout; Translations: [Personal history of other diseases of the musculoskeletal system and connective tissue] Onset: 04-02-2024 04-02-2024 Episodic Other non-traumatic joint disorders (3 sources) Hip pain; Translations: [Pain in right hip] Onset: 02-29-2024 02-29-2024 Episodic Other upper respiratory infections (3 sources) Sinusitis; Translations: [Chronic sinusitis, unspecified] Onset: 01-11-2024 Resolved: 02-29-2024 02-29-2024 Chronic Other upper respiratory infections (5 sources) Acute maxillary sinusitis, unspecified; Translations: [Acute upper respiratory infection, unspecified] Onset: 01-18-2024 Resolved: 02-29-2024 Episodic Unclassified (1 source) Contact with and (suspected) exposure to covid-19 Z20.822 Results Test Name Value Interpretation Reference Range Facility Outside Mammographyon 2023 Outside Mammography [id number]#1.00T IFF [facility] Outside Mammography [id number]#1.00TI FF [facility] Outside Mammography [id number]#1.00T IFF Normal [facility] Pathology Noteon 03-22-2024 Pathology Note [id number]#1.00TI FF Normal [facility] Physician Referralon 024 Physician Referral [id number]#1.00T IFF Normal [facility] Renard 02-06-2024 L Specimen: [id number] Received: 02/07/24 Status: TARAN Everett Num: [id number] Spec Type: Surgical Subm Dr: LEANNE Stapleton Tissues: A Breast Core CALCIFICATIONS (RT BREAST MASS) Procedures: HE/4, Gross/Micro L4 Age/ Patient Sex Location Account Attending Physician Ariana Mitchell 48/F [place] [id number] LEANNE Stapleton SPEC NUM: [id number] RECD: 02/07/24 STATUS: TARAN EVERETT NUM: [id number] PAOLO: 02/06/24 DR: LEANNE Stapleton ENTERED: 02/07/[address] [facility] DR: Yoly Sorensen SPEC TYPE: Surgical [...] Totally submitted in 2 cassettes. CPT Codes 73527 Specimen: [id number] Received: 02/07/24 Status: TARAN Everett Num: [id number] Spec Type: Surgical Subm Dr: LEANNE Stapleton Tissues: A Breast Core CALCIFICATIONS (RT BREAST MASS) Procedures: Solis MORA/Jessica L4 Patient: Ariana Mitchell [id number] (Continued) Signed (signature on file) Shama Kwon MD 02/10/24 [id number] [facility] COVID + FLU Quick Testingon 12-15-2023 SARS-CoV-2 (COVID-19) RNA SHARMILA+probe Ql (Unsp spec) Negative [employer] Other COVID + FLU Quick Testing Negative [employer] Other Urinalysis - AUTOMATEDon Appearance (U) clear [employer] Other Bilirubin Ql (U) Negative [email or web address] Other Color (U) yellow [employer] Other Glucose Ql (U) Negative [employer] Other Hemoglobin Ql (U) large [employer] Other Ketones Ql (U) Positive [employer] Other Leukocyte esterase Test strip Ql (U) moderate [employer] Other Nitrite Ql (U) Positive [employer] Other pH (U) 6.5 [pH] [employer] Other Protein Ql (U) Negative [employer] Other Specific gravity (U) [Rel density] 1.025 [employer] Other Urobilinogen (U) [Mass/Vol] 0.2 mg/dL [employer] Other Urinalysis - AUTOMATED [employer] Other Urine Cultureon 09-13-2023 Bacteria identified Cx Nom (U) Reason for Exam Dysuria Urine ORGANISM: Escherichia coli (O:ESCCOL) [place] Count >100,000 Aerobic LETTY Charge (NMIC56) -- SUSCEPTIBILITY - ORGANISM: O:ESCCOL ANTIBIOTIC INTERPRETATION LETTY Amikacin S [...] <4 Tigecycline S <2 Tobramycin S <2 Trimethoprim/Sulfametho xazole S <0.5 S = SUSCEPTIBLE I = [...] RESISTANT TO ALL B-LACTAM DRUGS. PERFORMED BY: [place] [address] PATHOLOGIST DEFLECTOR OPERATOR TEVIN JENKINS M.D. [facility] Comment on above: Performed By: #### C UU #### [address] Urine Culture >100,000 [employer] Other Urine Culture <16 Susceptible [employer] Other Urine Culture <8/4 Susceptible [employer] Other Urine Culture <8 Susceptible [employer] Other Urine Culture <4 Susceptible [employer] Other Urine Culture <2 Susceptible [employer] Other Urine Culture <1 Susceptible [employer] Other Urine Culture <0.25 Susceptible [employer] Other Urine Culture <0.5 Susceptible [employer] Other Urine Culture <32 Susceptible [employer] Other Urine Culture <0.5/9.5 Susceptible [employer] Other MG MAMM SCREEN 3D SHANE CADon 12-20-2022 MG MAMM SCREEN 3D SHANE CAD Patient: ARIANA MITCHELL Exam Date: 12/20/2022 : 1975 Gender:F Ordering : DANNY GEORGES OPERATIONS DIRECTOR Admission #: [id number] Family : Order #: [id number] CLICK HERE TO VIEW EXAM RADIOLOGY REPORT [...] breast cancer at age 49. LOCATION: [facility] BREAST COMPOSITION: Extremely dense, which lowers the [...] Joseph MD on 12/21/2022 at 06:16 Normal [facility] Vital Signs Date Time Vital Sign Value Performing Clinician Facility 09-30-2024 15:02-0500 Body height 165.1 cm Michelle Georges NP Work Phone: [facility] 09-30-2024 15:02-0500 Body mass index (BMI) [Ratio] 29.82 kg/m2 Michelle Aichholz KITCHEN CHEF Work Phone: [facility] 09-30-2024 15:02-0500 Body temperature 97.3 [degF] Michelle Georges KITCHEN CHEF Work Phone: [facility] 09-30-2024 15:02-0500 Body weight 81.28 kg Michelle Jonesz K[employer] CHE[employer] Work Phone: [facility] 09-30-2024 15:02-0500 Diastolic blood pressure 82 mm[Hg] Michelle Jonesz KITCHEN CHEF Work Phone: [facility] 09-30-2024 15:02-0500 Heart rate 72 /min Michelle Jonesz KITCHEN CHEF Work Phone: [facility] 09-30-2024 15:02-0500 Respiratory rate 18 /min Michelle Georges KITCHEN CHEF Work Phone: [facility] 09-30-2024 15:02-0500 SaO2% (BldA) [Mass fraction] 98 % Michelle Georges K[employer] CHE[employer] Work Phone: [facility] 09-30-2024 15:02-0500 Systolic blood pressure 110 mm[Hg] Michelle Jonesz KITCHEN CHEF Work Phone: [facility] 12-15-2023 15:50-0500 Body height 165.1 cm Sonal [employer] Other [employer] Other 12-15-2023 15:50-0500 Body mass index (BMI) [Ratio] 29.95 kg/m2 Sonal Elena Other [employer] Other 12-15-2023 15:50-0500 Body temperature 98.1 [degF] Sonal Elena Other [facility] Other 12-15-2023 15:50-0500 Body weight 81.65 kg Sonal Elena Other [facility] [facility] Other 12-15-2023 15:50-0500 Diastolic blood pressure 94 mm[Hg] Sonal Elena Other [facility] [facility] Other 12-15-2023 15:50-0500 Respiratory rate 18 /min Sonal Elena Other [facility] [facility] Other 12-15-2023 15:50-0500 SaO2% (BldA) [Mass fraction] 99 % Sonal Elena Other [facility] [facility] Other 12-15-2023 15:50-0500 Systolic blood pressure 141 mm[Hg] Sonal Elena Other [facility] [facility] Other 11-09-2023 15:30-0500 Body height 165.1 cm Sonal Elena Other [facility] [facility] Other 11-09-2023 15:30-0500 Body mass index (BMI) [Ratio] 29.88 kg/m2 Sonal Elena Other [facility] Other 11-09-2023 15:30-0500 Body temperature 97.3 [degF] Sonal Elena Other [facility] Other 11-09-2023 15:30-0500 Body weight 81.47 kg Sonal Elena Other [facility] [facility] Other 11-09-2023 15:30-0500 Diastolic blood pressure 85 mm[Hg] Sonal Elena Other [facility] [facility] Other 11-09-2023 15:30-0500 Respiratory rate 18 /min Sonal Elena Other [facility] Other 11-09-2023 15:30-0500 SaO2% (BldA) [Mass fraction] 99 % Sonal Ulices Other [facility] Other 11-09-2023 15:30-0500 Systolic blood pressure 129 mm[Hg] Sonal Elena Other [facility] [facility] Other 10-19-2023 15:45-0500 Body height 165.1 cm Lisa Linda Other [employer] Other 10-19-2023 15:45-0500 Body mass index (BMI) [Ratio] 29.28 kg/m2 Lisa Linda Other [facility] [facility] Other 10-19-2023 15:45-0500 Body temperature 98.1 [degF] Lisa Linda Other [facility] [facility] Other 10-19-2023 15:45-0500 Body weight 79.83 kg Lisa Linda Other [facility] [facility] Other 10-19-2023 15:45-0500 Diastolic blood pressure 91 mm[Hg] Lisa Linda Other [facility] [facility] Other 10-19-2023 15:45-0500 Respiratory rate 18 /min Lisa Linda Other [facility] [facility] Other 10-19-2023 15:45-0500 SaO2% (BldA) [Mass fraction] 98 % Lisa Linda Other [facility] [facility] Other 10-19-2023 15:45-0500 Systolic blood pressure 140 mm[Hg] Lisa Linda Other [facility] [facility] Other 09-13-2023 13:55-0500 Body height 165.1 cm Iesha Boykin Other [employer] Other 09-13-2023 13:55-0500 Body mass index (BMI) [Ratio] 29.62 kg/m2 Iesha Boykin Other [facility] [facility] Other 09-13-2023 13:55-0500 Body temperature 97.9 [degF] Iesha Boykin Other [employer] Other 09-13-2023 13:55-0500 Body weight 80.74 kg Iesha Boykin Other [facility] [facility] Other 09-13-2023 13:55-0500 Respiratory rate 18 /min Iesha Boykin Other [employer] Other 09-13-2023 13:55-0500 SaO2% (BldA) [Mass fraction] 98 % Iesha Boykin Other [employer] Other Encounters Encounter Date Encounter Type Care Provider Facility Start: 09-30-2024 End: 09-30-2024 Patient encounter status Michelle Georges KITCHEN CHEF Work Phone: [facility] Work Phone: Start: 09-30-2024 End: 09-30-2024 Periodic preventive med est patient 40-64yrs Michelle Georges KITCHEN CHEF Work Phone: [facility] Comment on above: Encounter for wellne ss examination (Primary Dx); Overweight (BMI 25.0-29.9); Needs flu shot; Mixed hyperlipidemia (CMS/HCC); Encounter for screening mammogram for malignant neoplasm of breast Start: 09-30-2024 End: 09-30-2024 ambulatory MICHELLE GOERGES Not Available Start: 09-30-2024 End: 09-30-2024 Bamboo flowsheet Michelle Isbellgreggivone KITCHEN CHEF Work Phone: [facility] Start: 09-30-2024 End: 09-30-2024 Bamboo flowsheet Michelle Isbellgreggivone KITCHEN CHEF Work Phone: [facility] Start: 04-02-2024 End: 04-02-2024 ambulatory MICHELLE ISBELLGREGGIvone Not Available Start: 03-19-2024 ambulatory Facility:[facility] [place] Start: 02-29-2024 End: 02-29-2024 ambulatory MICHELLE ISBELLHOLZ Not Available Start: 02-29-2024 Patient encounter status Michelle Isbelljane KITCHEN CHEF Work Phone: [facility] Start: 02-06-2024 End: 02-06-2024 ambulatory Michelle Rae Yevinodgreggivone Facility:[facility] Start: 02-06-2024 End: 02-06-2024 ambulatory Michelle Rae Yevinodjane Work Phone: [facility] Work Phone: Start: 02-06-2024 End: 02-06-2024 Departed Referred Michelle Yevinodjane Work Phone: [facility] [place] [facility] Start: 02-06-2024 End: 02-06-2024 ambulatory ARDON FAWWAD Not Available Start: 01-29-2024 End: 01-29-2024 ambulatory ARDON FAWWAD Not Available Start: 01-18-2024 End: 01-18-2024 ambulatory ARDON FAWWAD Not Available Start: 12-15-2023 End: 12-15-2023 ambulatory Sonal Elena Other [employer] Other Start: 12-15-2023 Office outpatient vi sit 25 minutes Sonal Elena [facility] Start: 11-09-2023 End: 11-09-2023 ambulatory Sonal Elena Other [facility] [facility] Other Start: 11-09-2023 Office outpatient vi sit 25 minutes Sonal Ulices [facility] Start: 10-19-2023 End: 10-19-2023 ambulatory Lisa Linda Other [employer] [facility] Other Start: 10-19-2023 Office outpatient vi sit 15 minutes Lisa Linda [facility] Start: 09-13-2023 End: 09-13-2023 ambulatory Iesha Lucretia Facility:[facility] Start: 09-13-2023 End: 09-13-2023 Departed Referred KITCHEN CHEF-C Iesha Boykin Work Phone: [facility] [place] Work Phone: Start: 09-13-2023 End: 09-13-2023 ambulatory KITCHEN CHEF-C Iesha Boykin Work Phone: [facility] Work Phone: Start: 09-13-2023 Office outpatient ne w 10 minutes Iesha Lucretia [facility] Start: 12-20-2022 End: 12-21-[address] DESHAWN JOSEPH Facility:[facility] Start: 12-07-2022 End: 12-08-2022 ambulatory DANNY GEOGRES Facility: Procedures Date Procedure Procedure Detail Performing Clinician Start: 01-24-2024 Mammography Michelle lancaster [employer] Work Phone: Start: 09-13-2023 Piperacillin/tazobactam Iesha Boykin Other Start: 02-08-2023 Microscopic observat ion [Identifier] in Cervix by Cyto stain Michelle Georges [employer] Work Phone: Plan of Treatment Date Care Activity Detail Author Start: 02-08-2028 Screening for malign ant neoplasm of cervix [facility] Start: 04-07-2027 Screening for malign ant neoplasm of colon [facility] Start: 02-08-2026 Screening for malign ant neoplasm of cervix Pap Smear [facility] Start: 01-23-2025 Screening for malign ant neoplasm of breast Mammogram [facility] Start: 01-18-2025 End: 11-30-2025 MG Breast - bilateral Screening Bilateral screening mammogram Imaging Routine Encounter for screening mammogram for malignant neoplasm of breast Expected: 01/18/2025 (Approximate), Expires: 11/30/2025 [facility] Work Phone: Comment on above: Expected: 01/18/2025 (Approximate), Expires: 11/30/2025 Start: 09-30-2024 End: 09-30-2024 Patient encounter procedure 09/30/2024 3:00 PM EST Office Visit [facility] [address] [place] [address] Michelle Georges NP [address] [place] [id number] Encounter for wellness examination (Primary Dx); Overweight (BMI 25.0-29.9) [facility] Comment on above: Encounter for wellne ss examination (Primary Dx); Overweight (BMI 25.0-29.9) Start: 07-07-2024 Influenza vaccination Influenza Vacc ine (#1) [facility] Start: 09-13-2023 Bacteria identified in Urine by Culture [facility] Start: 1975 Screening for malign ant neoplasm of colon [facility] Immunizations Immunization Date Immunization Notes Care Provider Fa cility 09-30-2024 Influenza, injectabl e, Madin Phylicia Canine Kidney, preservative free, quadrivalent Michelle Karenz [employer] Work Phone: [facility] 04-22-2014 hepatitis B vaccine, adult dosage Michelle Aichholz [employer]F Work Phone: [facility] 11-19-2013 hepatitis B vaccine, adult dosage Michelle Aichholz [employer] Work Phone: [facility] 10-18-2013 hepatitis B vaccine, adult dosage Michelle Aichholz [employer]ITCHEN [employer] Work Phone: [facility] Payers Date Payer Category Payer Medicaid [id number] 2023 Self-pay [id number] 2022 Private Health Insurance [employer] [id number] 1975 Unknown [id number]. 593 1975 Unknown [id number]. 593 1975 Unknown [id number]. 1258 1975 Unknown [id number]. 9 1975 Unknown [id number]. 1258 1975 Unknown [id number] [id number]. 9 1975 Unknown [id number] [id number]. 9 1975 Unknown [id number] [id number]. 1259 1959 Unknown [id number] Private Health Insurance [facility] [id number] Unknown [id number]. 531 Unknown [id number]. 531 Social History Date Type Detail Facility Tobacco smoking status NHIS Unknown if ever smoked [facility] Work Phone: Start: 1975 Sex Assigned At Female [facility] Start: 02-29-2024 End: 04-02-2024 Sex Assigned At [facility] Start: 03-26-2019 End: 01-18-2024 Tobacco smoking status NHIS Never smoked tobacco (finding) [facility] Start: 01-18-2024 Tobacco use and exposure Smokeless tobacco non-user [facility] Start: 04-02-2024 End: 09-30-2024 Alcoholic beverage intake Current drinker of alcohol (finding) [facility] Start: 02-29-2024 End: 04-02-2024 History of Social function [facility] Start: 01-18-2024 Alcohol Comment OCCASSIONAL [facility] Start: 1975 Sex assigned at Not on file [facility] NEGATED: Highlighted rowStart: NINF History of tobacco use Passive smoker [facility] History of Present illness Narrative 09-30-2024 Michelle Georges NP - 09/30/2024 3:28 PM Angie Georges NP - 09/30/2024 3:15 PM Angie Georges NP - 09/30/2024 3:00 PM Angie Georges NP - 09/30/2024 7:46 AM EST Note Date & Type Note Facility 09-30-2024 History of Presen t illness Narrative Associated Problem(s): Encounter for screening mammogram for malignant neoplasm of breast Hx of breast cancer with sister 09/29 Associated Problem(s): Mixed hyperlipidemia (CMS/HCC) No statin use Images from the original note were not included. Ariana Mitchell is a 49 y.o. female presents with chief complaint of No chief complaint on file. HPI: Here for wellness: Diet: variety Activity: crunches, muscle strengthening as well. Riding bike in summer months Mental Health Concerns: none Falls in the last year: none Any Hospitalizations in the last year: none Concerns: none SUBJECTIVE: MEDICATIONS: Current Outpatient Medications Medication Instructions meloxicam (MOBIC) 15 mg, Daily ALLERGIES: No Known Allergies REVIEW OF SYMPTOMS: Review of Systems Constitutional: Negative for appetite change, chills and fever. HENT: Negative for congestion, ear pain and sore throat. Eyes: Negative for pain, discharge, redness and visual disturbance. Respiratory: Negative for cough, shortness of breath and wheezing. Cardiovascular: Negative for chest pain, palpitations and leg swelling. Gastrointestinal: Negative for abdominal pain, blood in stool, constipation, diarrhea, nausea and vomiting. Genitourinary: Negative for difficulty urinating, dysuria and frequency. Musculoskeletal: Negative for arthralgias, back pain (from time to time), joint swelling and myalgias. Skin: Negative for rash and wound. Neurological: Negative for dizziness, tremors, seizures, syncope and headaches. Psychiatric/Behavioral: Negative for behavioral problems, self-injury and suicidal ideas. The patient is not nervous/anxious. Hematological: Does not bruise/bleed easily. Endocrine: Negative for polydipsia, polyphagia and polyuria. Allergic/Immunologic: Negative for environmental allergies and food allergies. PAST MEDICAL HISTORY Past Medical History: Diagnosis Date Flu Migraine headache (CMS/HCC) Past Surgical History: Procedure Laterality Date BI STEREOTACTIC GUIDED BREAST LOCALIZATION AND BIOPSY RIGHT Right 02/06/2024 BI STEREOTACTIC GUIDED BREAST LOCALIZATION AND BIOPSY RIGHT SECTION, CLASSIC 2004 TUBAL LIGATION Bilateral 2005 family history includes Diabetes in her mother; Hypertension in her mother; No Known Problems in her father and sister. OBJECTIVE: Visit Vitals BP 110/82 (BP Location: Left arm, Patient Position: Sitting, BP Cuff Size: Adult long) Pulse 72 Temp 97.3 F (Temporal) Resp 18 Ht 5' 5 Wt 179 lb 3.2 oz SpO2 98% BMI 29.82 kg/m Smoking Status Never BSA 1.93 m Physical Exam Vitals and nursing note reviewed. Constitutional: General: She is not in acute distress. Appearance: Normal appearance. She is not ill-appearing or diaphoretic. HENT: Head: Normocephalic and atraumatic. Right Ear: External ear normal. Left Ear: External ear normal. Nose: Nose normal. Mouth/Throat: Mouth: Mucous membranes are moist. Eyes: Extraocular Movements: Extraocular movements intact. Conjunctiva/sclera: Conjunctivae normal. Neck: Vascular: No carotid bruit. Cardiovascular: Rate and Rhythm: Normal rate and regular rhythm. Pulses: Normal pulses. Heart sounds: Normal heart sounds. Pulmonary: Effort: Pulmonary effort is normal. Breath sounds: Normal breath sounds. Abdominal: General: Bowel sounds are normal. There is no distension. Palpations: Abdomen is soft. There is no mass. Tenderness: There is no abdominal tenderness. Musculoskeletal: General: Normal range of motion. Cervical back: Normal range of motion and neck supple. Right lower leg: No edema. Left lower leg: No edema. Skin: General: Skin is warm and dry. Capillary Refill: Capillary refill takes 2 to 3 seconds. Findings: No rash. Neurological: General: No focal deficit present. Mental Status: She is alert and oriented to person, place, and time. Psychiatric: Mood and Affect: Mood normal. Behavior: Behavior normal. Thought Content: Thought content normal. Judgment: Judgment normal. ASSESSMENT AND PLAN: Follow up in about 6 months (around 03/30/2025) for Recheck. Problem List Items Addressed This Visit Encounter for wellness examination - Primary Reviewed Ht/Wt/BMI Recommend eye exam yearly Recommend dental exams twice a year Balance work/leisure activities Exercises is recommended most days of the week (appropriate as chronic conditions allow) Follow up yearly and prn LMP 12/2023, does have hot flashes from time to time Overweight (BMI 25.0-29.9) Needs flu shot Relevant Orders Flu vaccine, MDCK, quadrivalent, PF (IXI549) (Flucelvax single dose syringe) (Completed) Mixed hyperlipidemia (CMS/HCC) No statin use Encounter for screening mammogram for malignant neoplasm of breast Hx of breast cancer with sister 09/29 Relevant Orders Bilateral screening mammogram Associated Problem(s): Encounter for wellness examination Reviewed Ht/Wt/BMI Recommend eye exam yearly Recommend dental exams twice a year Balance work/leisure activities Exercises is recommended most days of the week (appropriate as chronic conditions allow) Follow up yearly and prn LMP 12/2023, does have hot flashes from time to time documented in this encounter [facility] Instructions 09-30-2024 Patient Instructions Note Date & Type Note Facility 09-30-2024 Instructions Michelle Georges NP - 09/30/2024 3:00 PM EST Aerobic exercise 3-5 times weekly for 30 minutes Keep appt with dr Wilkes Mammogram 01/28-we will order this in January 2025 documented in this encounter [facility] Evaluation note 12-15-2023 Note Date & Type [...] Tylenol/Motrin as directed, rx of prednisone and [place] as directed, cool mist humidifier, throat lozenges. [...] treatment plan. Patient left in stable condition [facility] Other Evaluation note 11-09-2023 Note Date & [...] understanding and is agreeable to treatment plan [facility] Other Evaluation note 10-19-2023 Note Date & [...] vision, have change in vision, severe headache. [facility] Other Evaluation note 09-13-2023 Note Date & [...] no improvement in 2 to 3 days [facility] Other Clinical Note 12-07-2022 Note Date & [...] authenticated by: LOW VEGA Date: 2022-12-07 13:11 [facility] Evaluation note Note Date & Type Note Facility Evaluation note No assessment information availa [facility] Work Phone: Evaluation note Note Date & Type Note Facility Evaluation note Diagnosis Pain of right hip- Primary Encounter for wellness examination Abnormal mammogram Abnormal mammogram, unspecified Abnormal mammogram- Primary Abnormal mammogram, unspecified Pain of right hip- Primary Abnormal mammogram Abnormal mammogram, unspecified Screening for colon cancer Special screening for malignant neoplasms, colon Hx of gout Overweight (BMI 25.0-29.9) Overweight Encounter for wellness examination- Primary Overweight (BMI 25.0-29.9) Overweight Needs flu shot Need for prophylactic vaccination and inoculation against influenza Mixed hyperlipidemia (CMS/HCC) Mixed hyperlipidemia Encounter for screening mammogram for malignant neoplasm of breast documented in this encounter [facility] History general Narrative - Reported Note Date & Type Note Facility History general Narrative - Reported Type Surgical History tubal ligation Surgical History C section x 2 Surgical History LEEP Hospitalization History see above [facility] Other Summary Purpose Family History No Family [...] and content) DATE CREATED AUTHOR 12/24/2022 [facility] DATE CREATED AUTHOR AUTHOR'S ORGANIZ ATION 02/10/2024 [facility] DATE CREATED AUTHOR AUTHOR'S ORGANIZ ATION 03/25/2024 Rosas Duc [facility] DATE CREATED AUTHOR AUTHOR'S ORGANIZ ATION 10/03/2024 [facility] Care Teams (unrecognized sec tion and content) Team Status: Inactive Member Role Status Dates Iesha Boykin NP-C Attending Provider Active Team Status: Active Member Role Status Dates Michelle Georges Primary Care Provider Active Team Status: Inactive Member Role Status Dates Michelle Georges Primary Care Provide r, Attending Provider Active Start: February 06, 2024 End: February 06, 2024 Sports Physician Relationship Specialty Start Date End Date Kleber Boggs MD [address] [place] [phone] PCP - General Family Medicine 01/18/24 Michelle Georges NP [address] [place] [phone] Referring Physician Nurse Practitioner 06/02/23 Michelle Georges NP [address] [place] [phone] Nurse Practitioner Family Medicine 01/18/24 Sports Physician Relationship Specialty Start Date End Date Kleber Boggs MD [address] [place] [phone] PCP - General Family Medicine 01/18/24 Michelle Georges NP [address] [place] [phone] Referring Physician Nurse Practitioner 06/02/23 Michelle Georges NP [address] [place] [phone] Nurse Practitioner Family Medicine 01/18/24 Goals (unrecognized section and content) Goals may [...] BE BASED ON THE PRIMARY CLINICAL RECORDS. [employer] provides no warranty or guarantee of the accuracy or completeness of information in this document.
[2024-10-22 16:17] LABS: Basophils Absolute Auto 0.1 10^3/uL (0.0-0.1); Eosinophils Absolute Auto 0.2 10^3/uL (0.0-0.7); Eosinophils Percent Auto 2.5 % (0.9-7.0); Hematocrit 38.9 % (36.0-48.0); Hemoglobin 13.2 g/dL (12.0-16.0); Immature Granulocytes Abs Auto 0.03 10^3/uL (0.00-0.03); Immature Granulocytes Pct Auto 0.4 % (0.0-0.5); Lymphocytes Absolute Auto 2.4 10^3/uL (1.2-3.8); Lymphocytes Percent Auto 28.5 % (20.5-60.0); Mean Corpuscular HGB Conc 33.9 g/dL (29.9-35.2); Mean Corpuscular Hemoglobin 30.3 pg (26.7-34.0); Mean Corpuscular Volume 89.4 fL (81.0-99.0); Mean Platelet Volume 9.6 fL (9.5-13.5); Monocytes Absolute Auto 0.8 10^3/uL (0.3-0.8); Monocytes Percent Auto 10.2 % (1.7-12.0); Neutrophils Absolute Auto 4.8 10^3/uL (1.4-6.5); Neutrophils Percent Auto 57.4 % (43.0-75.0); Platelet Count 253 10^3/uL (150-450); Red Blood Count 4.35 10^6/uL (4.20-5.40); Red Cell Distribution Width 11.9 % (11.0-15.0); White Blood Count 8.3 10^3/uL (4.0-11.0)
[2024-10-22 17:00] LABS: Alanine Aminotransferase 22 U/L (14-59); Albumin Globulin Ratio 1.3; Albumin Level 3.7 g/dL (3.4-5.0); Alkaline Phosphatase 72 U/L (46-116); Anion Gap 11.9; Aspartate Amino Transferase 13 U/L (15-37); BUN Creatinine Ratio 37.3; Bilirubin Total 0.2 mg/dL (0.2-1.0); Calcium 8.9 mg/dL (8.5-10.1); Chloride 105 mmol/L (98-107); Estimated GFR (African America >60 (>=60 mL/min/1.73m^2); Estimated GFR (Non-African Ame >60 (>=60 mL/min/1.73m^2); Globulin 2.9 g/dL; Glucose 92 mg/dL (74-106); Potassium 3.9 mmol/L (3.5-5.1); Sodium 142 mmol/L (136-145); Total Protein 6.6 g/dL (6.4-8.2)
== END 2024-10-22 15:49 | disposition home or self-care (01) ==
LOC: LAB 15:48
PROVIDERS: PCP Nurse Practitioner; Visit Provider Internal Medicine Hematology & Oncology
DX: R93.89 Abnormal findings on diagnostic imaging of other specified body structures (principal); N60.81 Other benign mammary dysplasias of right breast; D05.11 Intraductal carcinoma in situ of right breast; Z80.3 Family history of malignant neoplasm of breast
CPT/HCPCS: 36415; 80053; 85025

== ENCOUNTER 2025-03-11 15:22 | Outpatient (OUT) | payer OTHER, SELFPAY ==
--- NOTE | 2025-03-11 15:27 | MM_ITS ---
Patient Name: JO-ANN CARRASCO MR#: [id number] : 1975 Exam Date: 03/11/2025 Ordering Doctor: DANNY GERBER CNP RADIOLOGY REPORT PROCEDURE: MM TOMOSYNTHESIS SCREENING BI COMPARISON: MM POST BIOPSY RT, 02/06/2024. MM STEREOTACTIC LOC RT, 02/06/2024. MM DIAGNOSTIC MAMMO UNILAT RT, 01/24/2024. MM TOMOSYNTHESIS SCREENING BI, 01/09/2024. INDICATIONS: Screening for malignant neoplasm Calculator Name NCI Breast Cancer Risk Assessment Tool 5 Year Breast Cancer Risk 1.80% Lifetime Breast Cancer Risk 15.80% Personal Breast Cancer No Personal Ovarian Cancer No Treatments None Family Cancers Aunt-paternal with breast cancer at age 50. LOCATION: [facility] BREAST COMPOSITION: The breasts are heterogeneously dense,which may obscure small masses. FINDINGS: DIAGNOSTIC CATEGORY 1--NEGATIVE. RIGHT BREAST: No significant suspicious finding. LEFT BREAST: No significant suspicious finding. RECOMMENDATIONS: ROUTINE MAMMOGRAM AND CLINICAL EVALUATION IN 12 MONTHS. PLEASE NOTE: A NORMAL MAMMOGRAM DOES NOT EXCLUDE THE POSSIBILITY OF BREAST CANCER. A CLINICALLY SUSPICIOUS PALPABLE LUMP SHOULD BE BIOPSIED. Dictated by: Jarrod Aguilar DO on 03/12/2025 at 15:51 Approved by: Jarrod Aguilar DO on 03/12/2025 at 15:52
== END 2025-03-11 15:23 | disposition home or self-care (01) ==
LOC: MAMMO 15:24
PROVIDERS: PCP Nurse Practitioner; Visit Provider Nurse Practitioner
DX: Z12.31 Encounter for screening mammogram for malignant neoplasm of breast (principal); Z80.3 Family history of malignant neoplasm of breast
CPT/HCPCS: 77063; 77067

== ENCOUNTER 2025-04-03 10:50 | Emergency (ER) | payer OTHER, SELFPAY ==
[2025-04-03 10:53] VITALS: BP 131/82; PULSE 88; TEMP 36.7; O2SAT 100; BMI 29.5
--- NOTE | 2025-04-03 11:05 | ED.GENADUL1 ---
HPI HPI - General Adult General Chief complaint: Back Pain/Injury Stated complaint: BACK PAIN Time Seen by Provider: 04/03/25 10:52 Source: patient Mode of arrival: walk-in Limitations: no limitations History of Present Illness HPI narrative: 49 presents to the emergency department for pain to her right shoulder blade area. It started yesterday. There is no injury or unusual activity. It hurts more if she moves. No chest pain or shortness of breath. It is a sharp pain. Related Data Previous Rx's ?Medication ?Instructions ?Recorded ibuprofen 800 mg tablet 800 mg PO Q8H PRN pain #20 tabs 04/03/25 methocarbamol 500 mg tablet 500 mg PO Q8H PRN pain #20 tabs 04/03/25 Allergies Allergy/AdvReac Type Severity Reaction Status Date / Time No Known Drug Allergies Allergy Verified 01/29/24 14:24 Opioid HPI Opioid Management Most Recent Opioid Data: Last Pain Scale 10 Today, 11:23 Last MAR Pain Assessment Today, 11:23 Review of Systems ROS Narrative A ten point review of systems is negative except as noted above. [facility] Medical History (Updated 04/03/25 @ 12:09 by Gokul Gonzalez MD) Sinus infection ?J32.9 - Chronic sinusitis, unspecified (ICD-10) Surgical History (Updated 01/29/24 @ 14:30 by Brenda Fields) H/O tubal ligation ?Z98.51 - Tubal ligation status (ICD-10) H/O section ?Z98.891 - History of uterine scar from previous surgery (ICD-10) History of right breast biopsy ?Z98.890 - Other specified postprocedural states (ICD-10) H/O LEEP ?Z98.890 - Other specified postprocedural states (ICD-10) Social History Smoking status: Never smoker Little interest or pleasure in doing things: not at all Feeling down, depressed, or hopeless: not at all Exam Narrative Exam Narrative: Nurses note and vital signs reviewed and patient is not hypoxic. General: The patient appears well and in no apparent distress. Patient is resting comfortably on cart. Skin: Warm, dry, no pallor noted. There is no rash noted. Head: Normocephalic, atraumatic Eye: Normal conjunctiva, no drainage Ears, Nose, Mouth, and Throat: oral mucosa is moist. Nares patent. Cardiovascular: Regular Rate and Rhythm Respiratory: Patient is in no distress, no accessory muscle use, lungs are clear to auscultation, no wheezing, rales or rhonchi Back: No bruise or rash. GI: Soft and nontender Musculoskeletal: The right shoulder has no bruise or rash and has good range of motion. Range of motion however causes discomfort. Neurological: A&O, normal speech Psychiatric: Cooperative Constitutional Vital Signs, click to edit/add: Last Vital Signs Temp 98.0 F 04/03/25 10:53 Pulse 88 04/03/25 10:53 Resp 18 04/03/25 10:53 BP 131/82 04/03/25 10:53 Pulse Ox 100 04/03/25 10:53 O2 Del Method Room Air 04/03/25 10:53 Course Vital Signs Vital signs: Vital Signs Temperature 98.0 F 04/03/25 10:53 Pulse Rate 88 04/03/25 10:53 Respiratory Rate 18 04/03/25 10:53 Blood Pressure 131/82 04/03/25 10:53 Pulse Oximetry 100 04/03/25 10:53 Oxygen Delivery Method Room Air 04/03/25 10:53 Temperature 98.0 F 04/03/25 10:53 Pulse Rate 88 04/03/25 10:53 Respiratory Rate 18 04/03/25 10:53 Blood Pressure 131/82 04/03/25 10:53 Pulse Oximetry 100 04/03/25 10:53 Oxygen Delivery Method Room Air 04/03/25 10:53 Medical Decision Making [facility] Narrative Medical decision making narrative: X-ray is negative. My clinical impression is that this is musculoskeletal in nature. I have no clinical suspicion of pulmonary embolism. She is feeling improved after being given IM Toradol and was prescribed ibuprofen and Robaxin. Treatment diagnosis and follow-up were discussed with the patient. Differential Diagnosis Differential Diagnosis: Shoulder sprain, fracture, tendinitis Imaging Data Shoulder x-ray: Radiologist's impression: ITS Impressions Shoulder X-Ray 04/03/25 11:20 IMPRESSION: NO ACUTE BONY FINDINGS. Impression dictated by: Светлана Rowe M.D. 04/03/2025 11:54 AM Dictation Location: [place] [address] Electronically authenticated by: [id number] Y Date: 04/03/2025 11:54 Discharge Plan Discharge Chief Complaint: Back Pain/Injury Clinical Impression: Acute shoulder pain Patient Disposition: Home, Self-Care Time of Disposition Decision: 12:09 Condition: Good Mode of Transportation: Private Vehicle Prescriptions / Home Meds: New ibuprofen 800 mg tablet 800 mg PO Q8H PRN (Reason: pain) Qty: 20 0RF methocarbamol 500 mg tablet 500 mg PO Q8H PRN (Reason: pain) Qty: 20 0RF Print Language: Malawian Instructions: Shoulder Pain (ED) Referrals: Michelle Georges NP [Primary Care Provider, Family Practice] - 1 week
--- OUTSIDE RECORDS SUMMARY | 2025-04-03 11:05 | XMS_ITS | CCD ---
Author Organization [facility] Care Team Providers Care Web Administrator Name Role Phone AICHHOLZ, ANIMATED CARTOONS PAINTER MICHELLE Primary Care Unavailable AICHHOLZ, ANIMATED CARTOONS PAINTER MICHELLE Consulting Unavailable AICHHOLZ, ANIMATED CARTOONS PAINTER MICHELLE Attending Unavailable AICHHOLZ, ANIMATED CARTOONS PAINTER MICHELLE Admitting Unavailable DR LOW VEGA Consulting Unavailable DR DESHAWN JOSEPH V Consulting Unavailable AICHHOLZ, ANIMATED CARTOONS PAINTER MICHELLE Attending Unavailable AICHHOLZ, ANIMATED CARTOONS PAINTER MICHELLE Admitting Unavailable AICHHOLZ, ANIMATED CARTOONS PAINTER MICHELLE Primary Care Unavailable AICHHOLZ, ANIMATED CARTOONS PAINTER MICHELLE Consulting Unavailable LEANNE Boykin Attending Provider Iesha Boykin Unavailable Lisa Mckeon Unavailable Sonal Elena Unavailable Michelle Georges Primary Care Provider Michelle Georges Attending Provider [phone] José Manuel GROUP FITNESS INSTRUCTOR, Michelle Unavailable Kleber Boggs MD Primary Care Provider José Manuel GROUP FITNESS INSTRUCTOR, Michelle Unavailable Michelle Georges Primary Care Provider Steph Wilkes MD Attending Provider [phone] Michelle Georges Admitting Unavailable Michelle Georges Attending Unavailable Michelle Georges Primary Care Unavailable Steph Wilkes Admitting Unavailable Steph Wilkes Attending Unavailable Michelle Georges Primary Care Unavailable MICHELLE GEORGES Attending Unavailable MICHELLE GEORGES Attending Unavailable MICHELLE GEORGES Attending Unavailable Allergies Allergy Classification Reported Allergen(s) Allergy Type Date of Onset Reaction(s) Facility (1 source) Unable to Assess Drug allergy (disorder) 01-03-2025 [facility] Repository Medications Current Medications Medication Drug Class(es) Dates Sig (Normalized) Sig (Original) amoxicillin 875 mg / clavulanate 125 mg oral tablet (4 sources) Penicillin-class Antibacterial Start: 12-23-2024 End: 12-30-2024 take 1 tablet by mouth in the morning amoxicillin-clav ulanate (Augmentin) 875-125 MG tablet Indications: Acute non-recurrent maxillary sinusitis Take 1 tablet (875 mg) by mouth in the morning and 1 tablet (875 mg) before bedtime. Do all this for 7 days. Take with food. 20 tablet 12/23/2024 12/30/2024 Active Start: 11-09-2023 take 1 tablet by josse th every twelve hours Amoxicillin-Pot Clavulanate 875-125 MG 1 tablet Orally every 12 hrs for 10 day(s) Nov, Not-Taking/PRN dextromethorphan hydrobromide 15 mg / guaiFENesin 400 mg / pseudoephedrine hydrochloride 60 mg oral tablet (1 source) alpha-Adrenergic Agonist, Uncompetitive J-yrzcll-E-aspartate Receptor Antagonist, Sigma-1 Agonist Start: 02-24-2025 take 4 tablets by mouth every twenty-four hours as needed Cfoitvzqhfkqgjg-Vz-Ljdjmasnqhv (Capmist Dm) 60-15-400 mg tablet Active 1 TAB PO EVERY 4-6 HOURS as needed for cold symptoms February 24, 2025 12:00am do not exceed 4 doses per 24 hrs dextromethorphan hydrobromide 1.5 mg/ml / pyrilamine maleate 1.5 mg/ml oral solution (1 source) Uncompetitive V-bcfwcf-E-aspartate Receptor Antagonist, Sigma-1 Agonist Start: 12-15-2023 take 10 mL by mouth every eight hours Callaway DM 7.5-7.5 MG/5ML 10 mL Orally every 8 hours for 5 days Dec, Active loratadine 10 mg oral tablet (1 source) Start: 02-24-2025 take 1 tablet by mouth once daily Loratadine 10 mg tablet Active 10 MG PO Daily February 24, 2025 12:00am meloxicam 15 mg oral tablet (9 sources) Nonsteroidal Anti-inflammatory Drug Start: 03-27-2024 End: 01-22-2025 take 1 tablet by mouth once daily as needed meloxicam (Mobic) 15 MG tablet Indications: Lumbar back pain Take 1 tablet (15 mg) by mouth Daily Take 15 mg by mouth Daily Pt is taking PRN 30 tablet 1 12/23/2024 01/22/2025 Active methylPREDNISolon e 4 mg oral tablet (7 sources) Corticosteroid Start: 02-24-2025 take 1 tablet by mouth once Methylprednisolone (Medrol (Bret)) 4 mg tablets,dose pack Active 0 PO per package directions February 24, 2025 12:00am PO PER PKG DIR for 6 days Start: 07-11-2020 Medrol 4 MG as directed Orally for 6 days Jul, Not-Taking/PRN predniSONE 20 mg oral tablet (3 sources) Start: 11-09-2023 take 1 tablet by mouth every twelve hours prednisone 20 MG 1 tablet Orally BID for 5 Dec, Active Completed/Discontinued Medications Medication Drug Class(es) Dates Sig (Normalized) Sig (Original) Cetirizine (6 sources) Histamine-1 Receptor Antagonist ZyrTEC [...] Toradol per 15 mg Apr, 30 mg nitrofurantoin, macrocrystals 25 mg / nitrofurantoin, monohydrate [...] Da te Episodic/Chronic Disorders of lipid metabolism (9 sources) Mixed hyperlipidemia; Translations: [Mixed hyperlipidemia] Onset: 09-30-2024 09-30-2024 Chronic Genitourinary symptoms and ill-defined conditions (3 sources) Dysuria Episodic Other ear and sense organ disorders (6 sources) Otitis externa; Translations: [Unspecified otitis externa, right ear] Chronic Other eye disorders (1 source) Conjunctival hemorrhage, left eye Episodic Other nervous system disorders (5 sources) Median nerve neuritis; 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, right upper limb] Onset: 12-23-2024 12-23-2024 Chronic Other non-traumatic joint disorders (4 sources) Effusion, left ankle; Translations: [EFFUSION LEFT ANKLE] Onset: 12-07-2022 Episodic Other upper respiratory disease (7 sources) Allergic rhinitis; Translations: [Allergic rhinitis, unspecified] 02-24-2025 Chronic Other upper respiratory disease (1 source) Allergic rhinitis, unspecified; Translations: [Allergic rhinitis, cause unspecified] 02-24-2025 Chronic Other upper respiratory infections (15 sources) Acute maxillary sinusitis, unspecified; Translations: [Acute upper respiratory infection, unspecified] Onset: 01-18-2024 Resolved: 02-29-2024 Episodic Residual codes; unclassified (1 source) Family history of malignant neoplasm of breast; Translations: [FAMILY HX MALIG NEOPLASM OF BREAST] Onset: 12-23-2022 Episodic Spondylosis; intervertebral disc disorders; other back problems (17 sources) Sciatica; Translations: [Sciatica, left side] Onset: 12-23-2024 12-23-2024 Episodic Urinary tract infections (3 sources) Acute cystitis with hematuria Episodic Past or Other Problems Problem Classification Problem Date Documented Date Episodic/Chronic Blindness and vision defects (8 sources) Astigmatism; Translations: [Unspecified astigmatism, unspecified eye] Onset: 09-13-2012 01-18-2024 Episodic Immunizations and screening for infectious disease (9 sources) Needs influenza immunization; Translations: [Encounter for immunization] Onset: 09-30-2024 09-30-2024 Episodic Other connective tissue disease (8 sources) H/O: gout; Translations: [Personal history of other diseases of the musculoskeletal system and connective tissue] Onset: 04-02-2024 04-02-2024 Episodic Other non-traumatic joint disorders (8 sources) Hip pain; Translations: [Pain in right hip] Onset: 02-29-2024 02-29-2024 Episodic Other nutritional; endocrine; and metabolic disorders (12 sources) Body mass index 25-29 - overweight; Translations: [Overweight] Onset: 04-02-2024 04-02-2024 Episodic Other screening for suspected conditions (not mental disorders or infectious disease) (20 sources) Encounter for screening mammogram for malignant neoplasm of breast; Translations: [Mammography abnormal] Onset: 12-20-2022 Episodic Other upper respiratory infections (8 sources) Sinusitis; Translations: [Chronic sinusitis, unspecified] Onset: 01-11-2024 Resolved: 02-29-2024 02-29-2024 Chronic Unclassified (1 source) Contact with and (suspected) exposure to covid-19 Z20.822 Results Test Name Value Interpretation Reference Range Facility MM TOMOSYNTHESIS SCREENING B Ion 03-12-[address] [address] Mammography Report Signed Patient: ARIANA MITCHELL MR#: [id number] : 1975 Acct:[id number] Age/Sex: 49 / F ADM Date: 03/11/25 Loc: MAMMO Attending Dr: Michelle Georges NP Ordering Physician: Michelle Georges NP Results: Date of Service: 03/11/25 Follow Up: Procedure(s): MM tomosynthesis screening BI Accession Number(s): [id number] cc: Michelle Georges NP Patient Name: ARIANA MITCHELL MR#: [id number] : 1975 Exam Date: 03/11/2025 Ordering Doctor: DANNY GEORGES CNP RADIOLOGY REPORT PROCEDURE: MM TOMOSYNTHESIS SCREENING BI COMPARISON: MM POST BIOPSY RT, 02/06/2024. MM STEREOTACTIC LOC RT, 02/06/2024. MM DIAGNOSTIC MAMMO UNILAT RT, 01/24/2024. MM TOMOSYNTHESIS SCREENING BI, 01/09/2024. INDICATIONS: Screening for malignant neoplasm Calculator Name NCI Breast Cancer Risk Assessment Tool 5 Year Breast Cancer Risk 1.80% Lifetime Breast Cancer Risk 15.80% Personal Breast Cancer No Personal Ovarian Cancer No Treatments None Family Cancers Aunt-paternal with breast cancer at age 50. LOCATION: [facility] BREAST COMPOSITION: The breasts are heterogeneously dense,which may obscure small masses. FINDINGS: DIAGNOSTIC CATEGORY 1--NEGATIVE. RIGHT BREAST: No significant suspicious finding. LEFT BREAST: No significant suspicious finding. RECOMMENDATIONS: ROUTINE MAMMOGRAM AND CLINICAL EVALUATION IN 12 MONTHS. PLEASE NOTE: A NORMAL MAMMOGRAM DOES NOT EXCLUDE THE POSSIBILITY OF BREAST CANCER. A CLINICALLY SUSPICIOUS PALPABLE LUMP SHOULD BE BIOPSIED. Dictated by: Jarrod Aguilar DO on 03/12/2025 at 15:51 Approved by: Jarrod Aguilar DO on 03/12/2025 at 15:52 Dictated By: Jarrod Aguilar M.D. Signed By: 03/12/25 1553 DD/ 1552 TD/TT: Inside Horticultural Specialty Grower: [facility] Krista Lewis MD - 03/12/2025 [place] [address] Mammography Report Signed Patient: ARIANA MITCHELL MR#: [id number] : 1975 Acct:[id number] Age/Sex: 49 / F ADM Date: 03/11/25 Loc: MAMMO Attending Dr: Michelle Georges NP Ordering Physician: Michelle Georges NP Results: Date of Service: 03/11/25 Follow Up: Procedure(s): MM tomosynthesis screening BI Accession Number(s): [id number] cc: Michelle Georges NP Patient Name: ARIANA MITCHELL MR#: [id number] : 1975 Exam Date: 03/11/2025 Ordering Doctor: DANNY GEORGES CNP RADIOLOGY REPORT PROCEDURE: MM TOMOSYNTHESIS SCREENING BI COMPARISON: MM POST BIOPSY RT, 02/06/2024. MM STEREOTACTIC LOC RT, 02/06/2024. MM DIAGNOSTIC MAMMO UNILAT RT, 01/24/2024. MM TOMOSYNTHESIS SCREENING BI, 01/09/2024. INDICATIONS: Screening for malignant neoplasm Calculator Name NCI Breast Cancer Risk Assessment Tool 5 Year Breast Cancer Risk 1.80% Lifetime Breast Cancer Risk 15.80% Personal Breast Cancer No Personal Ovarian Cancer No Treatments None Family Cancers Aunt-paternal with breast cancer at age 50. LOCATION: [facility] BREAST COMPOSITION: The breasts are heterogeneously dense,which may obscure small masses. FINDINGS: DIAGNOSTIC CATEGORY 1--NEGATIVE. RIGHT BREAST: No significant suspicious finding. LEFT BREAST: No significant suspicious finding. RECOMMENDATIONS: ROUTINE MAMMOGRAM AND CLINICAL EVALUATION IN 12 MONTHS. PLEASE NOTE: A NORMAL MAMMOGRAM DOES NOT EXCLUDE THE POSSIBILITY OF BREAST CANCER. A CLINICALLY SUSPICIOUS PALPABLE LUMP SHOULD BE BIOPSIED. Dictated by: Jarrod Aguilar DO on 03/12/2025 at 15:51 Approved by: Jarrod Aguilar DO on 03/12/2025 at 15:52 Dictated By: Jarrod Aguilar M.D. Signed By: 03/12/25 1553 DD/ 1552 TD/TT: Inside Horticultural Specialty Grower: [facility] Radiology Study observation (narrative) [facility] MM TOMOSYNTHESIS SCREENING B IOrdered By: Radiologist Radiology on 03-12-2025 [facility] [employer] Work Phone: ALL CBC WITH AUTO DIFFon BASOPHILS ABSOLUTE AUTO 0.1 [facility] Basophils/100 WBC (Bld) 1 % 0.2 - 2.0 % [facility] Eosinophils/100 WBC (Bld) 2.5 % 0.9 - 7.0 % [facility] Erythrocyte distribution width (RBC) [Ratio] 11.9 % 11.0 - 15.0 % [facility] Hematocrit (Bld) [Volume fraction] 38.9 % 36.0 - 48.0 % [facility] Health[facility] Hemoglobin (Bld) [Mass/Vol] 13.2 g/dL 12.0 - 16.0 g/dL [facility] IMMATURE GRANULOCYTES ABS AUTO 0.03 [facility] Immature granulocytes/100 WBC (Bld) 0.4 % 0.0 - 0.5 % [facility] LYMPHOCYTES ABSOLUTE AUTO 2.4 [facility] Lymphocytes/100 WBC (Bld) 28.5 % 20.5 - 60.0 % [facility] MCH (RBC) [Entitic mass] 30.3 pg 26.7 - 34.0 pg [facility] MCHC (RBC) [Mass/Vol] 33.9 g/dL 29.9 - 35.2 g/dL [facility] MCV (RBC) [Entitic vol] 89.4 fL 81.0 - 99.0 fL [facility] MONOCYTES ABSOLUTE AUTO 0.8 [facility] Monocytes/100 WBC (Bld) 10.2 % 1.7 - 12.0 % [facility] NEUTROPHILS ABSOLUTE AUTO 4.8 [facility] Neutrophils/100 WBC (Bld) 57.4 % 43.0 - 75.0 % [facility] Platelet mean volume (Bld) [Entitic vol] 9.6 fL 9.5 - 13.5 fL [facility] TBH EO # 0.2 [facility] PLT 253 [facility] RBC 4.35 [facility] WBC 8.3 [facility] Outside Mammographyon 2023 Outside Mammography [id number]#1.00T IFF Normal [facility] Outside Mammography [id number]#1.00TI FF [facility] Outside Mammography [id number]#1.00T IFF Normal [facility] Pathology Noteon 03-22-2024 Pathology Note [id number]#1.00TI FF Normal [facility] Physician Referralon 024 Physician Referral [id number]#1.00T IFF Normal [facility] Ernard 02-06-2024 L Specimen: [id number] Received: 02/07/24 Status: TARAN Everett Num: [id number] Spec Type: Surgical Subm Dr: LEANNE Stapleton Tissues: A Breast Core CALCIFICATIONS (RT BREAST MASS) Procedures: HE/4, Gross/Micro L4 Age/ Patient Sex Location Account Attending Physician StephenAriana M 48/F LABELL [id number] LEANNE Stapleton SPEC NUM: [id number] RECD: 02/07/24 STATUS: TARAN EVERETT NUM: [id number] PAOLO: 02/06/24 DR: LEANNE Stapleton ENTERED: 02/07/[address] [facility] [address]: Edu,Yoly SPEC TYPE: Surgical DEPT: NAA PAN ORDERED: [...] Totally submitted in 2 cassettes. CPT Codes 52793 Specimen: [id number] Received: 02/07/24 Status: TARAN Marguerite Num: [id number] Spec Type: Surgical Subm Dr: GRICEL StapletonC Tissues: A Breast Core CALCIFICATIONS (RT BREAST MASS) Procedures: Solis MORA/Jessica L4 Patient: Ariana Mitchell [id number] (Continued) Signed (signature on file) Shama Kwon MD 02/10/24 9026 [place] The [facility] COVID + FLU Quick Testingon 12-15-2023 SARS-CoV-2 (COVID-19) RNA SHARMILA+probe Ql (Unsp spec) Negative [employer] Other COVID + FLU Quick Testing Negative [employer] Other Urinalysis - AUTOMATEDon Appearance (U) clear [employer] Other Bilirubin Ql (U) Negative [employer] Other Color (U) yellow [employer] Other Glucose Ql (U) Negative [employer] Other Hemoglobin Ql (U) large [employer] Other Ketones Ql (U) Positive [employer] Other Leukocyte esterase Test strip Ql (U) moderate [employer] Other Nitrite Ql (U) Positive [employer] Other pH (U) 6.5 [pH] [employer] Other Protein Ql (U) Negative [employer] Other Specific gravity (U) [Rel density] 1.025 [employer] Other Urobilinogen (U) [Mass/Vol] 0.2 mg/dL [employer] Other Urinalysis - AUTOMATED [employer] Other Urine Cultureon 09-13-2023 Urine Culture >100,000 [employer] Other Urine Culture <16 Susceptible [employer] Other Urine Culture <8/4 Susceptible [employer] Other Urine Culture <8 Susceptible [employer] Other Urine Culture <4 Susceptible [employer] Other Urine Culture <2 Susceptible [employer] Other Urine Culture <1 Susceptible [employer] Other Urine Culture <0.25 Susceptible [employer] Other Urine Culture <0.5 Susceptible [employer] Other Urine Culture <32 Susceptible [employer] Other Urine Culture <0.5/9.5 Susceptible [employer] Other MG MAMM SCREEN 3D SHANE CADon 12-20-2022 MG MAMM SCREEN 3D SHANE CAD Patient: ARIANA MITCHELL Exam Date: 12/20/2022 : 1975 Gender:F Ordering : DANNY GEORGES [facility] Admission #: [id number] Family : Order #: [id number] CLICK HERE TO VIEW EXAM RADIOLOGY REPORT [...] breast cancer at age 49. LOCATION: [facility] BREAST COMPOSITION: Extremely dense, which [...] MD on 12/21/2022 at 06:16 Normal [facility] Vital Signs Date Time Vital Sign Value Performing Clinician Facility 02-24-2025 15:33-0400 Body height 165.1 cm [facility] 02-24-2025 15:33-0400 Body mass index (BMI) [Ratio] 30.5 kg/m2 [facility] 02-24-2025 15:33-0400 Body temperature 97.7 [degF] [facility] 02-24-2025 15:33-0400 Body weight 83.17 kg [facility] 02-24-2025 15:33-0400 Diastolic blood pressure 89 mm[Hg] [facility] 02-24-2025 15:33-0400 Heart rate 95 /min [facility] 02-24-2025 15:33-0400 Respiratory rate 18 /min [facility] 02-24-2025 15:33-0400 SaO2% (BldA) [Mass fraction] 97 % [facility] 02-24-2025 15:33-0400 Systolic blood pressure 127 mm[Hg] [facility] 01-03-2025 07:51-0500 Body height 165.1 cm Michelle Karenz Work Phone: [facility] 01-03-2025 07:51-0500 Body weight 79.37 kg Michelle Karenz Work Phone: [facility] 12-23-2024 11:51-0500 Body mass index (BMI) [Ratio] 29.92 kg/m2 Michelle Karenz GROUP FITNESS INSTRUCTOR Work Phone: [facility] 12-23-2024 11:51-0500 Body temperature 98.71 [degF] Michelle Karenz GROUP FITNESS INSTRUCTOR Work Phone: [facility] 12-23-2024 11:51-0500 Body weight 81.56 kg Michelle Yehgreggz GROUP FITNESS INSTRUCTOR Work Phone: [facility] 12-23-2024 11:51-0500 Diastolic blood pressure 80 mm[Hg] Michelle Aichholz GROUP FITNESS INSTRUCTOR Work Phone: [facility] 12-23-2024 11:51-0500 Heart rate 95 /min Michelle Akilahholz GROUP FITNESS INSTRUCTOR Work Phone: [facility] 12-23-2024 11:51-0500 Respiratory rate 18 /min Michelle Aichholz GROUP FITNESS INSTRUCTOR Work Phone: [facility] 12-23-2024 11:51-0500 SaO2% (BldA) [Mass fraction] 97 % Michelle Aichholz GROUP FITNESS INSTRUCTOR Work Phone: [facility] 12-23-2024 11:51-0500 Systolic blood pressure 118 mm[Hg] Michelle Aichholz GROUP FITNESS INSTRUCTOR Work Phone: [facility] 09-30-2024 15:02-0500 Body height 165.1 cm Michelle Aichholz GROUP FITNESS INSTRUCTOR Work Phone: [facility] 09-30-2024 15:02-0500 Body mass index (BMI) [Ratio] 29.82 kg/m2 Michelle Aichholz GROUP FITNESS INSTRUCTOR Work Phone: [facility] 09-30-2024 15:02-0500 Body temperature 97.3 [degF] Michelle Aichholz GROUP FITNESS INSTRUCTOR Work Phone: [facility] 09-30-2024 15:02-0500 Body weight 81.28 kg Michelle Aichholz GROUP FITNESS INSTRUCTOR Work Phone: [facility] 09-30-2024 15:02-0500 Diastolic blood pressure 82 mm[Hg] Michelle Aichholz GROUP FITNESS INSTRUCTOR Work Phone: [facility] 09-30-2024 15:02-0500 Heart rate 72 /min Michelle Aichholz GROUP FITNESS INSTRUCTOR Work Phone: [facility] 09-30-2024 15:02-0500 Respiratory rate 18 /min Michelle Aichholz GROUP FITNESS INSTRUCTOR Work Phone: [facility] 09-30-2024 15:02-0500 SaO2% (BldA) [Mass fraction] 98 % Michelle Aichholz GROUP FITNESS INSTRUCTOR Work Phone: [facility] 09-30-2024 15:02-0500 Systolic blood pressure 110 mm[Hg] Michelle Aichholz GROUP FITNESS INSTRUCTOR Work Phone: [facility] 12-15-2023 15:50-0500 Body height 165.1 cm Sonal Elena Other [employer] Other 12-15-2023 15:50-0500 Body mass index (BMI) [Ratio] 29.95 kg/m2 Sonal Elena Other [employer] Other 12-15-2023 15:50-0500 Body temperature 98.1 [degF] Sonal Elena Other [employer] Other 12-15-2023 15:50-0500 Body weight 81.65 kg Sonal Elena Other [employer] Other 12-15-2023 15:50-0500 Diastolic blood pressure 94 mm[Hg] Sonal Elena Other [employer] Other 12-15-2023 15:50-0500 Respiratory rate 18 /min Sonal Elena Other [employer] Other 12-15-2023 15:50-0500 SaO2% (BldA) [Mass fraction] 99 % Sonal Elena Other [employer] Other 12-15-2023 15:50-0500 Systolic blood pressure 141 mm[Hg] Sonal Elena Other [employer] Other 11-09-2023 15:30-0500 Body height 165.1 cm Sonal Elena Other [employer] Other 11-09-2023 15:30-0500 Body mass index (BMI) [Ratio] 29.88 kg/m2 Sonal Elena Other [employer] Other 11-09-2023 15:30-0500 Body temperature 97.3 [degF] Sonal Elena Other [employer] Other 11-09-2023 15:30-0500 Body weight 81.47 kg Sonal Elena Other [employer] Other 11-09-2023 15:30-0500 Diastolic blood pressure 85 mm[Hg] Sonal Elena Other [employer] Other 11-09-2023 15:30-0500 Respiratory rate 18 /min Sonal Elena Other [employer] Other 11-09-2023 15:30-0500 SaO2% (BldA) [Mass fraction] 99 % Sonal Elena Other [employer] Other 11-09-2023 15:30-0500 Systolic blood pressure 129 mm[Hg] Sonal Elena Other [employer] Other 10-19-2023 15:45-0500 Body height 165.1 cm Lisa Linda Other [employer] Other 10-19-2023 15:45-0500 Body mass index (BMI) [Ratio] 29.28 kg/m2 Lisa Linda Other [employer] Other 10-19-2023 15:45-0500 Body temperature 98.1 [degF] Lisa Linda Other [employer] Other 10-19-2023 15:45-0500 Body weight 79.83 kg Lisa Linda Other [employer] Other 10-19-2023 15:45-0500 Diastolic blood pressure 91 mm[Hg] Lisa Linda Other [employer] Other 10-19-2023 15:45-0500 Respiratory rate 18 /min Lisa Linda Other [employer] Other 10-19-2023 15:45-0500 SaO2% (BldA) [Mass fraction] 98 % Lisa Linda Other [employer] Other 10-19-2023 15:45-0500 Systolic blood pressure 140 mm[Hg] Lisa Linda Other [employer] Other 09-13-2023 13:55-0500 Body height 165.1 cm Iesha Boykin Other [employer] Other 09-13-2023 13:55-0500 Body mass index (BMI) [Ratio] 29.62 kg/m2 Iesha Lucretia Other [employer] Other 09-13-2023 13:55-0500 Body temperature 97.9 [degF] Iesha Parkermond Other [employer] Other 09-13-2023 13:55-0500 Body weight 80.74 kg Iesha Lucretia Other [employer] Other 09-13-2023 13:55-0500 Respiratory rate 18 /min Iesha Lucretia Other [employer] Other 09-13-2023 13:55-0500 SaO2% (BldA) [Mass fraction] 98 % Iesha Lucretia Other [facility] [employer] Other Encounters Encounter Date Encounter Type Care Provider Facility Start: 03-27-2025 End: 03-27-2025 ambulatory MICHELLE JOSÉ MANUEL Not Available Start: 03-12-2025 End: 03-12-2025 Clinisync Result Encounter Michelle José Manuel GROUP FITNESS INSTRUCTOR Work Phone: [facility] Unsolicited Start: 03-12-2025 End: 03-12-2025 Clinisync Result Encounter Michelle José Manuel GROUP FITNESS INSTRUCTOR Work Phone: [facility] Unsolicited Start: 02-24-2025 End: 02-24-2025 ambulatory [facility] Work Phone: Start: 02-24-2025 End: 02-24-2025 Patient encounter procedure [facility] Work Phone: Start: 01-03-2025 End: 01-03-2025 Patient encounter procedure Michelle José Manuel Work Phone: [facility] [place] Work Phone: Start: 01-03-2025 End: 01-03-2025 ambulatory Michelle Butch Belchervinodjane Work Phone: [facility] Work Phone: Start: 12-23-2024 End: 12-23-2024 Bamboo flowsheet Michelle Georges GROUP FITNESS INSTRUCTOR Work Phone: [facility] Start: 12-23-2024 End: 12-23-2024 Bamboo flowsheet Michelle Georges GROUP FITNESS INSTRUCTOR Work Phone: [facility] Start: 12-23-2024 End: 12-23-2024 Office outpatient visit 15 minutes Michelle Georges GROUP FITNESS INSTRUCTOR Work Phone: [facility] Comment on above: Acute non-recurrent maxillary sinusitis (Primary Dx); Median nerve neuritis, right; Overweight (BMI 25.0-29.9); Lumbar back pain Start: 12-23-2024 End: 12-23-2024 ambulatory MICHELLE GEORGES Not Available Start: 10-22-2024 End: 10-22-2024 Clinisync Result Encounter Generic External Data Provider [facility] Unsolicited Start: 10-22-2024 End: 10-22-2024 Clinisync Result Encounter Generic External Data Provider [facility] External Department Unsolicited Start: 09-30-2024 End: 09-30-2024 Patient encounter status Michelle José Manuel [employer] Work Phone: [facility] Work Phone: Start: 09-30-2024 End: 09-30-2024 Periodic preventive med est patient 40-64yrs Michelle Georges [employer]STRUCTOR Work Phone: [facility] Comment on above: Encounter for wellne ss examination (Primary Dx); Overweight (BMI 25.0-29.9); Needs flu shot; Mixed hyperlipidemia (CMS/HCC); Encounter for screening mammogram for malignant neoplasm of breast Start: 09-30-2024 End: 09-30-2024 ambulatory MICHELLE GEORGES Not Available Start: 09-30-2024 End: 09-30-2024 Bamboo flowsheet Michelle Georges [employer] IN[employer]CTOR Work Phone: [facility] Start: 09-30-2024 End: 09-30-2024 Bamboo flowsheet Michelle Georges [employer] INSTRUCTOR Work Phone: [facility] Start: 03-19-2024 ambulatory Facility: [facility] Start: 02-29-2024 Patient encounter status Michelle Georges [employer] INSTRUCTOR Work Phone: [facility] Start: 02-06-2024 End: 02-06-2024 ambulatory Michelle Georges Work Phone: [facility] Work Phone: Start: 02-06-2024 End: 02-06-2024 Departed Referred Michelle Aichholz Work Phone: [facility] Start: 12-15-2023 End: 12-15-2023 ambulatory Sonal Elena Other [employer] Other Start: 12-15-2023 Office outpatient vi sit 25 minutes Sonal Elena [facility] Start: 11-09-2023 End: 11-09-2023 ambulatory Sonal Elena Other [employer] Other Start: 11-09-2023 Office outpatient vi sit 25 minutes Sonal Elena [facility] Start: 10-19-2023 End: 10-19-2023 ambulatory Lisa Linda Other [employer] Other Start: 10-19-2023 Office outpatient vi sit 15 minutes Lisa Linda [facility] Start: 09-13-2023 End: 09-13-2023 Departed Referred GROUP FITNESS INSTRUCTOR-C Iesha Boykin Work Phone: [facility] Work Phone: Start: 09-13-2023 End: 09-13-2023 ambulatory GROUP FITNESS INSTRUCTOR-C Iesha Boykin Work Phone: [facility] Work Phone: Start: 09-13-2023 Office outpatient ne w 10 minutes Iesha Boykin [facility] Start: 12-20-2022 End: 12-21-[address] DESHAWN JOSEPH Facility:[facility] Start: 12-07-2022 End: 12-08-2022 ambulatory DANNY GEORGES Facility:[facility] Procedures Date Procedure Procedure Detail Performing Clinician Start: 03-12-2025 MM TOMOSYNTHESIS SCR EENING BI Michelle Georges [employer] IN[employer]CTOR Work Phone: Start: 03-12-2025 Mammography Michelle lancaster [employer] IN[employer]CTOR Work Phone: Start: 10-22-2024 ALL CBC WITH AUTO DIFF Generic External Data Provider Start: 01-24-2024 Mammography Michelle lancaster [employer] Work Phone: Start: 09-13-2023 Piperacillin/tazobactam Iesha Boykin Other Start: 02-08-2023 Microscopic observat ion [Identifier] in Cervix by Cyto stain Michelle Georges [employer] IN[employer]CTOR Work Phone: Plan of Treatment Date Care Activity Detail Author Start: 02-08-2028 Screening for malign ant neoplasm of cervix [facility] Start: 04-07-2027 Screening for malign ant neoplasm of colon [facility] Start: 02-08-2026 Screening for malign ant neoplasm of cervix Pap Smear [facility] Start: 03-27-2025 End: 03-27-2025 Patient encounter procedure 03/27/2025 3:00 PM EDT Office Visit [facility] [address] [place] [phone] Michelle Georges NP [address] [place] [phone] [facility] Start: 01-23-2025 Screening for malign ant neoplasm of breast Mammogram [facility] Start: 01-18-2025 End: 11-30-2025 MG Breast - bilateral Screening Bilateral screening mammogram Imaging Routine Encounter for screening mammogram for malignant neoplasm of breast Expected: 01/18/2025 (Approximate), Expires: 11/30/2025 [facility] Work Phone: Comment on above: Expected: 01/18/2025 (Approximate), Expires: 11/30/2025 Start: 12-23-2024 End: 12-23-2024 Patient encounter procedure 12/23/2024 11:45 AM EST Office Visit [facility] [address] [place] [phone] Michlele Georges NP [address] [place] [phone] Arrived [facility] Comment on above: Arrived Start: 09-30-2024 End: 09-30-2024 Patient encounter procedure 09/30/2024 3:00 PM EST Office Visit [facility] [address] [place] [address] Michelle Georges, GUSTAVO [address] [place] [phone] Encounter for wellness examination (Primary Dx); Overweight (BMI 25.0-29.9) [facility] Comment on above: Encounter for wellne ss examination (Primary Dx); Overweight (BMI 25.0-29.9) Start: 07-07-2024 Influenza vaccination Influenza Vacc ine (#1) [facility] Start: 09-13-2023 Bacteria identified in Urine by Culture [facility] Start: 1975 Screening for malign ant neoplasm of colon [facility] Immunizations Immunization Date Immunization Notes Care Provider Fa cility 09-30-2024 Influenza, injectabl e, Madin Franklin Canine Kidney, preservative free, quadrivalent Michelle Aichholz [employer]CTOR Work Phone: [facility] 04-22-2014 hepatitis B vaccine, adult dosage Michelle Aichholz [employer] INSTRUCTOR Work Phone: [facility] 11-19-2013 hepatitis B vaccine, adult dosage Michelle Aichholz [employer] INSTRUCTOR Work Phone: [facility] 10-18-2013 hepatitis B vaccine, adult dosage Michelle Aichholz [employer] FITNESS INSTRUCTOR Work Phone: [facility] Payers Date Payer Category Payer Self-pay [id number] 2022 Private Health Insurance [employer] [id number] 1974 Unknown [id number] 1974 Unknown [id number] 1974 Unknown [id number] 1974 Unknown [id number] 1974 Unknown [id number] 1959 Unknown [id number] Medicaid [id number] Private Health Insurance [facility] [id number] Unknown [id number] Unknown [id number] Social History Date Type Detail Facility Tobacco smoking status NHIS Unknown if ever smoked [facility] Work Phone: Start: 1975 Sex Assigned At Female [facility] Start: 02-29-2024 End: 04-02-2024 Sex Assigned At [facility] Start: 03-26-2019 End: 01-18-2024 Tobacco smoking status NHIS Never smoked tobacco (finding) [facility] Start: 01-18-2024 Tobacco use and exposure Smokeless tobacco non-user [facility] Start: 04-02-2024 End: 12-23-2024 Alcoholic beverage intake Current drinker of alcohol (finding) [facility] Start: 02-29-2024 End: 04-02-2024 History of Social function [facility] Start: 01-18-2024 Alcohol Comment [facility]ASSIONAL [facility] Start: 1975 Sex assigned at Not on file [facility] Start: 01-04-2025 End: 02-24-2025 Sex Female (finding) [facility] NEGATED: Highlighted rowStart: NINF History of tobacco use Passive smoker [facility] Clinical Notes 12-07-2022 to 12-23-2024 Michelle Georges NP - 12/23/2024 12:16 PM Angie Georges NP - 12/23/2024 12:14 PM YANY BOWSER - 12/23/2024 11:45 AM Angie Georges NP - 12/23/2024 11:45 AM ESTPatient Instructions Note Date & Type Note Facility 12-23-2024 History of Presen t illness Narrative Associated Problem(s): Median nerve neuritis, right Recommend cock up splint And she works at , recommend she fu with health center there to determine if this can be a work related injury Associated Problem(s): Acute non-recurrent maxillary sinusitis Fluids, rest, add nasal steroid Finish at, fu if not better Pt states she started having symptoms on Monday symptoms include headaches, congestion, sinus pressure, right ear pain, both ears plugged, runny/stuffy nose, drainage, some cough, yellowish to green nasal , Pt has been using otc congestion medication and mucinex Right wrist-possible carpal tunnel never had xrays done has been hurting on and off for a couple months, has numbness at night 3-4x weekly, pt uses a magnetic bracelet has tried using brace but does not help Images from the original note were not included. Ariana Mitchell is a 49 y.o. female presents with chief complaint of No chief complaint on file. HPI: Pt states she started having symptoms on Monday symptoms include headaches, congestion, sinus pressure, right ear pain, both ears plugged, runny/stuffy nose, drainage, some cough, yellowish to green nasal , Pt has been using otc congestion medication and mucinex Right wrist-possible carpal tunnel never had xrays done has been hurting on and off for a couple months, has numbness at night 3-4x weekly, pt uses a magnetic bracelet has tried using brace but does not help Sinusitis This is a new problem. The current episode started in the past 7 days. The problem has been gradually worsening since onset. There has been no fever. The pain is moderate. Associated symptoms include congestion and sinus pressure. Pertinent negatives include no chills, coughing, ear pain, headaches, shortness of breath or sore throat. Treatments tried: OTC meds. SUBJECTIVE: MEDICATIONS: Current Outpatient Medications Medication Instructions amoxicillin-clavulanate (Augmentin) 875-125 MG tablet 875 mg, Oral, 2 times daily, Take with food meloxicam (MOBIC) 15 mg, Oral, Daily, Take 15 mg by mouth Daily Pt is taking PRN ALLERGIES: No Known Allergies REVIEW OF SYMPTOMS: Review of Systems Constitutional: Negative for appetite change, chills and fever. HENT: Positive for congestion, sinus pressure and sinus pain. Negative for ear pain, postnasal drip, rhinorrhea and sore throat. Eyes: Negative for pain, discharge, redness and visual disturbance. Respiratory: Negative for cough, shortness of breath and wheezing. Cardiovascular: Negative for chest pain, palpitations and leg swelling. Gastrointestinal: Negative for abdominal pain, blood in stool, constipation, diarrhea, nausea and vomiting. Genitourinary: Negative for difficulty urinating, dysuria and frequency. Musculoskeletal: Positive for arthralgias (right wrist). Negative for back pain, joint swelling and myalgias. Skin: Negative for [...] father and sister. OBJECTIVE: Visit Vitals BP 118/80 (BP Location: Left arm, Patient Position: Sitting, BP Cuff Size: Adult long) Pulse 95 Temp 98.7 F (Temporal) Resp 18 Wt 179 lb 12.8 oz SpO2 97% BMI 29.92 kg/m Smoking Status Never BSA 1.93 m Physical Exam Vitals and nursing note reviewed. Constitutional: General: She is not in acute distress. Appearance: Normal appearance. She is not ill-appearing. HENT: Head: Normocephalic and atraumatic. Right Ear: Ear canal and external ear normal. Left Ear: Ear canal and external ear normal. Ears: Comments: Fluid/retraction bilat Nose: Congestion and rhinorrhea present. Comments: +sinus pressure Mouth/Throat: Mouth: Mucous membranes are moist. Pharynx: No oropharyngeal exudate or posterior oropharyngeal erythema. Eyes: Extraocular Movements: Extraocular movements intact. Conjunctiva/sclera: Conjunctivae normal. Cardiovascular: Rate and Rhythm: Normal rate and regular rhythm. Pulses: Normal pulses. Heart sounds: Normal heart sounds. Pulmonary: Effort: Pulmonary effort is normal. Breath sounds: Normal breath sounds. No wheezing or rales. Abdominal: General: Bowel sounds are normal. There is no distension. Palpations: Abdomen is soft. There is no mass. Tenderness: There is no abdominal tenderness. Musculoskeletal: General: Normal range of motion. Cervical back: Normal range of motion and neck supple. Right lower leg: No edema. Left lower leg: No edema. Comments: Bilat wrist: neg blake, neg phalens, neg tinels Mild thenar atrophy R palmar aspect, pt is RHD Lymphadenopathy: Cervical: No cervical adenopathy. Skin: General: Skin is warm and dry. Capillary Refill: Capillary refill takes 2 to 3 seconds. Findings: No rash. Neurological: General: No focal deficit present. Mental Status: She is alert and oriented to person, place, and time. Psychiatric: Mood and Affect: Mood normal. Behavior: Behavior normal. Thought Content: Thought content normal. Judgment: Judgment normal. ASSESSMENT AND PLAN: Follow up for Next scheduled follow-up. Problem List Items Addressed This Visit Overweight (BMI 25.0-29.9) Acute non-recurrent maxillary sinusitis - Primary Fluids, rest, add nasal steroid Finish atb, fu if not better Relevant Medications amoxicillin-clavulanate (Augmentin) 875-125 MG tablet Median nerve neuritis, right Recommend cock up splint And she works at , recommend she fu with health center there to determine if this can be a work related injury Lumbar back pain Relevant Medications meloxicam (Mobic) 15 MG tablet documented in this encounter [facility] 12-23-2024 Instructions Michelle Georges NP - 12/23/2024 11:45 AM EST Finish atb, take with food Add allergy nasal spray such as generic for flonase nasal spray Follow up if not better Needs mammogram documented in this encounter [facility] 09-30-2024 History of Presen t illness Narrative [...] BREAST LOCALIZATION AND BIOPSY RIGHT SECTION, CLASSIC 2003 TUBAL LIGATION Bilateral 2005 family history includes [...] Relevant Orders Flu vaccine, MDCK, quadrivalent, PF ([id number]) (Flucelvax single dose syringe) (Completed) Mixed hyperlipidemia [...] time to time documented in this encounter [facility] 09-30-2024 Instructions Michelle Georges NP - 09/30/2024 3:00 PM EST Aerobic exercise 3-5 times weekly for 30 minutes Keep appt with dr Wilkes Mammogram 01/28-we will order this in January 2025 documented in this encounter [facility] 12-15-2023 Evaluation note Encounter Date Diagnosis Assessment Notes Dec, Contact with and (suspected) exposure to covid-19 (ICD-10 - Z20.822) Dec, Viral URI with cough (ICD-10 - J06.9) Advised patient that COVID/Influenza A/B test was negative today. Advised patient that will treat as viral URI. Supportive care as directed, increase fluids and rest, Tylenol/Motrin as directed, rx of prednisone and [place] as directed, cool mist humidifier, throat lozenges. [...] treatment plan. Patient left in stable condition [employer] Other 01-04-2024 Evaluation note* Encounter Date Diagnosis Assessment Notes Treatment Notes Treatment Clinical Notes Nov, Acute non-recurrent maxillary sinusitis (ICD-10 [...] rest, may use Tylenol as needed for fever/discomfort, cool mist humidifier, OTC cold medications as directed. Patient to follow up with PCP in 2-3 days if symptoms do not improve. Immediate eval if SOB, difficulty breathing, chest pain, dizziness, or other concerning symptoms. Patient verbalizes understanding and is agreeable to treatment plan [employer] Other 12-14-2023 Evaluation note* Encounter Date Diagnosis Assessment Notes Treatment Notes Treatment Clinical Notes Oct, Subconjunctival hemorrhage of left eye [...] vision, have change in vision, severe headache. [employer] Other 11-08-2023 Evaluation note* Encounter Date Diagnosis Assessment Notes Treatment Notes Treatment Clinical Notes Sep, Dysuria (ICD-10 - R30.0) Sep, Acute cystitis with hematuria (ICD-10 - N30.01) Drink plenty fluids, get plenty of rest. Take the Macrobid and the Pyridium as prescribed until gone. Take Tylenol or Motrin as needed for aches pains or fevers. Follow-up with your family physician if no improvement in 2 to 3 days [employer] Other 02-01-2023 NotePROCEDURE: XR ANKLE LT MIN 3 V HISTORY: Effusion of joint of left ankle ; acute lateral ankle pain; no known injury COMPARISON: None. FINDINGS: BONES:No fracture, acute abnormality, or significant arthropathy. SOFT TISSUES:Mild lateral soft tissue swelling. EFFUSION:None visible. OTHER: Negative. IMPRESSION: 1. Mild lateral swelling suggesting soft tissue injury. 2. No acute bone abnormality. Electronically authenticated by: LOW VEGA Date: 2022-12-07 13:11[facility]No assessment information available[facility] Work Phone: Evaluation note* Diagnosis Pain of right hip- Primary Encounter [...] neoplasm of breast documented in this encounter [facility]* Diagnosis Pain of right hip- Primary Encounter [...] screening mammogram for malignant neoplasm of breast Acute non-recurrent maxillary sinusitis- Primary Median nerve neuritis, right Overweight (BMI 25.0-29.9) Overweight Lumbar back pain Lumbago documented in this encounter [facility]* Diagnosis Onset Date Resolution Status Admit Date Allergic rhinitis, cause unspecified acute February 24, 2025 3:20pm [facility] Work Phone: History general Narrative - Reported* Type Description Date Surgical History tubal ligation Surgical History C section x 2 Surgical History LEEP Hospitalization History see above [employer] Other Summary Purpose Family History No Family History Records Found Relationship Condition Age at Onset Recorded Date/T denisha Not Specified Diabetes mellitus Unknown Heart disease Unknown Unknown Relationship Condition Age at Onset Recorded Date/T denisha mother Diabetes mellitus Unknown Heart disease Unknown Unknown Advance Directives No Advanced Directives Records Found Advance Directive Response Recorded Date/ Time Advance Directives No December 05, 2018 9:22am Advance Directive Response Recorded Date/ Time Advance Directives No December 05, 2018 10:22am Advance Directive Response Recorded Date/ Time Advance Directives No February 24 025 3:17pm Chief Complaint and Reason for Visit Chief Complaint Dysuria Chief Complaint Unknown Chief Complaint Admit Date r93.89 n60.81 d05.11 z80.3 December 7:36am Chief Complaint Admit Date Sinus congestion, cough February 24, 2025 3:20pm Reason for Visit Admit Date Allergic rhinitis, cause unspecified Apr 2024 3:20pm Additional Source Comments INFORMATION SOURCE (unrecogn ized section and content) DATE CREATED AUTHOR 12/24/2022 [facility] DATE CREATED AUTHOR AUTHOR'S ORGANIZ ATION [facility] DATE CREATED AUTHOR AUTHOR'S ORGANIZ ATION 01/05/[address] [facility] DATE CREATED AUTHOR AUTHOR'S ORGANIZ ATION 04/03/2025 [facility] EP[employer] Care Teams (unrecognized sec tion and content) Team Status: Inactive Member Role Status Dates Iesha Boykin NP-C Attending Provider Active Team Status: Active Member Role Status Dates Michelle Georges Primary Care Provider Active Team Status: Inactive Member Role Status Dates Michelle Georges Primary Care Provide r, Attending Provider Active Start: February 06, 2024 End: February 06, 2024 Web Administrator Relationship Specialty Start Date End Date Kleber Boggs MD [address] [place] [address] PCP - General Family Medicine 01/18/24 Michelle Georges NP [address] [place] [address] Referring Physician Nurse Practitioner 06/02/23 Michelle Georges NP [address] [place] [address] Nurse Practitioner Family Medicine 01/18/24 Web Administrator Relationship Specialty Start Date End Date Kleber Boggs MD [address] [place] [phone] PCP - General Family Medicine 01/18/24 Michelle Georges NP [address] [place] [phone] Referring Physician Nurse Practitioner 06/02/23 Michelle Georges NP [address] [place] [phone] Nurse Practitioner Family Medicine 01/18/24 Web Administrator Relationship Specialty Start Date End Date Kleber Boggs MD [address] [place] [phone] PCP - General Family Medicine 01/18/24 Michelle Georges NP [address] [place] [phone] Referring Physician Nurse Practitioner 06/02/23 Michelle Georges NP [address] [place] [phone] Nurse Practitioner Family Medicine 01/18/24 Web Administrator Relationship Specialty Start Date End Date Kleber Boggs MD [address] [place] [phone] PCP - General Family Medicine 01/18/24 Michelle Georges NP [address] [place] [phone] Referring Physician Nurse Practitioner 06/02/23 Michelle Georges NP [address] [place] [phone] Nurse Practitioner Family Medicine 01/18/24 Web Administrator Relationship Specialty Start Date End Date Kleber Boggs MD [address] [place] [phone] PCP - General Family Medicine 01/18/24 Michelle Georges NP [address] [place] [phone] Referring Physician Nurse Practitioner 06/02/23 Michelle Georges NP [address] [place] [phone] Nurse Practitioner Family Medicine 01/18/24 Team Status: Inactive Member Role Status Dates Michelle Georges Primary Care Provider Active Sta rt: January 03, 2025 End: January 03, 2025 Steph Wilkes MD Attending Provider Active St art: January 03, 2025 End: January 03, 2025 Team Status: Inactive Member Role Status Dates Michelle Georges Primary Care Provider Active Sta rt: February 24, 2025 End: February 24, 2025 Ellyn Gasca APRN Attending Provider Active Start: February 24, 2025 End: February 24, 2025 Web Administrator Relationship Specialty Start Date End Date Kleber Boggs MD [address] [place] [phone] PCP - General Family Medicine 01/18/24 Michelle Georges NP [address] [place] [address] Referring Physician Nurse Practitioner 06/02/23 Michelle Georges NP [address] [place] [phone] Nurse Practitioner Family Medicine 01/18/24 Goals (unrecognized section and content) Goals may be documented in a n alternate sectionNo InformationNo InformationNo InformationNo InformationNo InformationNo InformationGoals may be documented in an alternate sectionGoals may be documented in an alternate sectionGoals may be documented in an alternate section [...] BE BASED ON THE PRIMARY CLINICAL RECORDS. [employer] [facility]. provides no warranty or guarantee of the accuracy or completeness of information in this document.
--- NOTE | 2025-04-03 11:20 | XR_ITS ---
The [address] [address] Patient Name: JO-ANN CARRASCO MRN: [id number] date: 1975 Sex: F Assigned Patient Location: ER Current Patient Location: ED.MAIN Accession/Order Number: [id number] Exam Date: 04/03/2025 11:52 Report Date: 04/03/2025 11:54 At the request of: MONICA DANIEL MD Procedure: XR shoulder RT min 2V RIGHT SHOULDER - 3 views CLINICAL HISTORY: Right shoulder pain posteriorly for the past few days with radiation down the arm. No injury. COMPARISON: None AP, Y and Grashey views were obtained. There is no acute fracture or dislocation. No prominent degenerative changes seen. There are no significant soft tissue abnormalities. XR/XR shoulder RT min 2V IMPRESSION: NO ACUTE BONY FINDINGS. Impression dictated by: Светлана Rowe M.D. 04/03/2025 11:54 AM Dictation Location: [place] [address] Electronically authenticated by: [id number] Y Date: 04/03/2025 11:54
[2025-04-03] MEDS: KETOROLAC TROMETHAMINE 60 MG/2 ML VIAL IM (11:23)
[2025-04-03 12:18] VITALS: BP 112/75; PULSE 80; O2SAT 99
== END 2025-04-03 12:20 | disposition home or self-care (01) ==
PROVIDERS: Emergency Provider Emergency Medicine; PCP Nurse Practitioner
DX: M25.511 Pain in right shoulder (principal)
CPT/HCPCS: 73030; 96372; 99284; J1885

== ENCOUNTER 2025-10-10 10:45 | Outpatient (OUT) | payer OTHER, SELFPAY ==
--- OUTSIDE RECORDS SUMMARY | 2025-10-06 11:25 | XMS_ITS | Continuity of Care Document ---
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 Name Role Phone Michelle Georges NP-C Primary Care Provider [phone] Alondra Conteh APRN Attending Provider Michelle Georges NP-C Attending Provider Care Teams Patient Care Team Team Status: Active Member Role/Relationship Status Dates Michelle Georges NP-C Primary Care Provider Active Visit Care Team Team Status: Inactive Member Role/Relationship Status Dates Michelle Georges NP-C Primary Care Provider Active Start: August 02, 2025 End: August 02, 2025Alondra Conteh APRN CIGARETTE MAKING EXAMINER-CAttending Provider ActiveStart: August 02, 2025 End: August 02, 2025 Patient Care Team Team Status: Inactive Member Role/Relationship Status Dates Michelle Georges NP-C Primary Care Provider Active Start: October 06, 2025 End: October 06, 2025Michelle Georges CIGARETTE MAKING EXAMINER-CAttending ProviderActiveStart: October 06, 2025 End: October 06, 2025 Chief Complaint and Reason for Visit Chief Complaint Admit Date Woke up with a stiff neck July 10:39am annual wellness October 06, 2025 3 :16pm Reason for Visit Admit Date Strain of right trapezius muscle Septemb er 2024 10:39am Encounter for adult wellness visit Decem 2024 3:16pm Mixed hyperlipidemia October 06, 2025 3:16pm Muscle spasm October 06, 2025 3 :16pm Needs flu shot October 06, 2025 3 :16pm Overweight (BMI 25.0-29.9) October 06, 2025 3:16pm Allergies, Adverse Reactions, Alerts Allergen Type Severity Reaction Last Updated Verified Status No Known Allergies Allergy Unknown October 06, 2025 4:02pmYesActive Social History Smoking Status Status Start Date End Date Date of Observa tion Never smoked tobacco (finding) March 26, 2019 12:15pm Observation Status Observation Response Date of Response Legal Sex [facility] (finding) [facility] 1974 Family History Relationship Condition Age at Onset Recorded Date/T denisha mother Diabetes mellitus Unknown Heart diseaseUnknownDeceasedUnknown Problems Active Problems Problem Diagnosis/Recorded Date Onset Date Stat us Encounter for adult wellness visit September 30, 2025 9:39am Unknown Active Colon cancer screening September 30, 2025 9:41am Unkn own Active Strain of right trapezius muscle August 02, 2025 9:59am Unknown Active Encounter for screening mamm ogram for malignant neoplasm of breast September 30, 2025 9:39am Unknown Acti ve Overweight (BMI 25.0-29.9) September 30, 2025 9:41am Unknown Active Muscle spasm October 06, 2025 4:16pm Unknown Ac tive Astigmatism September 30, 2025 9:39am Unknown A ctive Needs flu shot October 06, 2025 4:17pm Unknown Active Neuritis of right median nerve September 30, 2025 9:4 0am Unknown Active Mixed hyperlipidemia September 30, 2025 9:40am Unknow n Active Lumbar back pain September 30, 2025 9:39am Unknown Active Pain in right hip September 30, 2025 9:41am Unknown Active Abnormal mammogram September 30, 2025 9:39am Unknown Active Allergic rhinitis, cause unspecified February 24, 2025 2:26pm Unknown Active Medications Medication Status Dose Units Route Directions Qty Days Refills S tart Date Stop Date End Date Reason(s) Instructions Adherence Methylprednisolone (Medrol (Bret)) 4 mg tablets,dose pa ck Discontinued 0 POper package civgswmriv334Vykew 2024 11:00pmSeptember 2024 9:40amPO PER PKG DIR for 6 daysLoratadine 10 mg qtbsdiPivxrxoqiuvi83EDHKUzjvu62079Bnlwx 2024 11:00pmSe2024 9:38xqLecnwjrtlxisxrr-Hw-Kkxlznukwqf (Capmist Dm) 60-15-400 mg moqjlxTqyhwzrapabi2LAGKXBEMMX 4-6 HOURS as needed for cold pkmcppaj639Ncxmi 2024 11:00pmAugust 02, 2025 9:40amdo not exceed 4 doses per 24 hrsMultivitamin (One Daily Multivitamin) mzrzghKnsgcc9XHZMATkjxv October 06, 2025 12:00amComplies with drug therapyTizanidine 4 mg capsule Spphxq7TSWRSmwpn at bedtime as needed for muscle spasmDeceer 2024 4:02pm Complies with drug therapyMethylprednisolone (Medrol (Bret)) 4 mg tablets,dose vibeQsryfjnfmurk4DYtit package anvcobqhzw338Habqrmzpq 26th, 2025 11:00pmNov2024 6:07amPO PER PKG DIR for 6 daysTizanidine 4 mg teylerdKujodjuhycdd5XV POThree times daily as needed for muscle jncet795TkcjoklduAugust 01, 2025 11:00pm October 06, 2025 4:03pm Vital Signs Vital Reading Result Reference Range Collection Date/Time Height 65 [in_i] August 02, 2025 9:04riKnsiao02.78 kgAugust 02, 2025 9:44amBody Rdarqovyhvz82.7 [degF]97.6-99.0August 02, 2025 9:44amHeart Rate88 /min 60-100August 02, 2025 9:44amRespiratory rate18 /qmc53-80AugppbsdzAugust 02, 2025 9:44amOxygen saturation by Pulse xrexirzt47 %95-100August 02, 2025 9:44amBP Torpnznu993 mm[Hg]100-140August 02, 2025 9:44amBP Pzacofovl00 mm[Hg]60-100August 02, 2025 9:44amBMI (Body Mass Index)30.3 kg/d8HswovxojpAugust 02, 2025 9:90xqIxumge53 [in_i]October 06, 2025 3:63fxEaigpb70.51 kgDece2024 3:33pmBody Irnwuvrevey53.5 [degF]97.6-99.0December 2024 3:33pm Heart Rate94 /rsv05-258ZawosjfxOctober 06, 2025 3:33pmRespiratory rate18 /nax14-26 October 06, 2025 3:33pmOxygen saturation by Pulse ojvteprv84 %95-100Decemb2024 3:33pmBP Qjlveecy374 mm[Hg]100-140Decemb2024 3:33pmBP Fehcpberj51 mm[Hg]60-100Decemb2024 3:33pmBMI (Body Mass Index)30.6 kg/m2 October 06, 2025 3:33pm Advance Directives Advance Directive Response Recorded Date/ Time Advance Directives No February 24 2:17pm Insurance Providers Guarantor Courtney Alvarado Address [address] [place] [address]Fvrtepn Info.Home Phone: Coverage Status Update:2024 Payer Group Member ID Coverage Type Subscriber Relationship to Subscriber Effective Date Expiration Date Medicaid [id number] Crouch , M Id: [id number] [address] [place] [address] Home Phone: SelfUnited Healthcare Medicaid [id number] Crouch , M Id: [id number] [address] [place] [address] Home Phone: SelfHealthscope Id: [id number] Crouch , M Id: [id number] [address] [place] [address] Home Phone: Self Encounters Encounter Location(s) Arrival/Admit Date Discharge/Departure Date Discharge/Departure Disposition Provider(s) Departed Physician/ Provider Office Visit -[facility] [place] August 02, 2025 10:39am August 02, 2025 11:06am Discharged to home care or self care (routine discharge) Alondra Conteh APRN Departed Physician/ Provider Office Visit -[facility] Family [facility] [place] October 06, 2025 3:16pm October 06, 2025 4:24pm Discharged to home care or self care (routine discharge) Michelle Georges , CIGARETTE MAKING EXAMINER-C Recent Diagnosis Onset Date Admit Date Strain of right trapezius muscle Unknown August 02, 2025 10:39am Encounter for adult wellness visit Unknown October 06, 2025 3:16pm Mixed hyperlipidemia Unknown October 3:16pm Muscle spasm Unknown October 06 3:16pm Needs flu shot Unknown October 06 3:16pm Overweight (BMI 25.0-29.9) Unknown Decem 2024 3:16pm Assessments Diagnosis Onset Date Resolution Status Admit Date Strain of right trapezius muscle acuteSept2024 10:39amEncounter for adult wellness visitacuteDece2024 3:16pmMixed hyperlipidemiaacuteDe2024 3:16pmMuscle spasm acuteDe2024 3:16pmNeeds flu shotacuteDe[facility]20[facility] 3:16pm Overweight (BMI 25.0-29.9)acuteDe2024 3:16pm Plan of Treatment Author Michelle Georges [facility] 2024 4:18pmReviewed Ht/Wt/BMI Recommend eye exams yearly Recommend dental exam: twice a year Balance work/leisure activities exercise is recommended most days of the week (appropriate as chronic conditions allow) follow up yearly and prn no current meds recommend a diet low in fat, and processed foods, as well as regular exercise Discussed with patient their BMI (actual vs recommended). We have discussed lifestyle modifications: attempts to perform phsyical activity as chronic conditions allow, monitor dietary intake: increasing protein/fruits/veggies and lowering carb intake (unless contraindicated). Limit sodas, juices, sugary drinks, as well as alcohol consumption. tizanidine at HS prn stretching exercises recommend massage therapy in office today Author Alondra Conteh [facility]2024 10:01amKenalog injection given in office today. Start steroid pack tomorrow. Will also send muscle relaxers for use as needed. Rest. Apply ice to area of pain alternated with heat indirectly for 20 minutes every 1-2 hours. Take medication as prescribed. RTC if symptoms unrelieved after 1 week. Pt offered understanding of treatment plan. Future Tests Future scheduled test information is unavailable Pending Tests Test Name Ordered Date Scheduled Date Comprehensive Metabolic Panel October 06, 2025 7:24am Future Visits Future appointment information is unavailable Future Procedures Procedure Name Ordered Date Scheduled Date Dipstick and Microscopic October 06, 2025 7:24 am Complete Blood Count Auto DiffDecember 2024 7:24amLipid PanelDecemb2024 7:24amThyroid Stimulating HormoneDecemb2024 7:24am Future Medications Future medication information is unavailable Patient Instructions Patient instructions are unavailable
--- OUTSIDE RECORDS SUMMARY | 2025-10-10 10:48 | XMS_ITS | Clinical Summary ---
Author Organization [employer] [facility] Address [facility] [id number] [address] [place] [address] Care Team Providers Care Commission Clerk Name Role Phone No Pcp, No Pcp Primary Care Provider Unavailabl e Allergies No known active allergies Medications MedicationSigDispense QuantityRefillsLast FilledStart DateEnd DateStatus multivit-min/ferrous fumarate (MULTI VITAMIN ORAL) Take by mouth.Active Active Problems ProblemNoted DateDiagnosed DateHistory of loop electrical excision procedure (LEEP)02/07/2023 Overview (02/07/2023): [address] Canas Family history of breast zdhhsz8302/07/2023 Overview (02/07/2023): Paternal aunt, age 50s Family History Medical HistoryRelationNameCommentsCOPDMotherDiabetesMotherHypertensionMother ObesityMotherBreast cancerPaternal AuntRelationNameStatusCommentsFatherAlive MotherDeceasedPaternal AuntAlive Social History Tobacco UseTypesPacks/DayYears UsedDateSmoking Tobacco: NeverSmokeless Tobacco: Never Tobacco Cessation:Counseling Given: Not Answered Alcohol UseStandard Drinks/WeekCommentsYes0 (1 standard drink = 0.6 oz pure alcohol)SOCIALChildcareAnswerDate UincvrzhIdhviacyqYvpwdij08/12/2019Employment AnswerDate VrytrgdlPedmpcdmwpCmgbhqn71/12/2019CommentsUnknownSex and Gender InformationValueDate RecordedSex Assigned at BirthNot on fileLegal Sex Xrioto3606/11/2015 11:57 AM EDTGender IdentityNot on fileSexual OrientationNot on file Last Filed Vital Signs Vital SignReadingTime TakenCommentsBlood Otbsoyns507/8204 2:49 PM EDT Erhxp6085 2:49 PM EDTTemperature--Respiratory Fgtv572202/07/2023 2:49 PM EDTOxygen Saturation--Inhaled Oxygen Concentration--Jkhjix85.6 kg (180 lb) 02/07/2023 2:49 PM INEDfvkyz874.1 cm (5' 5 )02/07/2023 2:49 PM EDTBody Mass Index29.9504 2:49 PM EDT Plan of Treatment Health MaintenanceDue DateLast DoneCommentsDepression Syjzcauyu48/12/1986Tobacco Eumfauxxk49/12/1986DTaP,Tdap and Td Vaccines (1 - Tdap)1993Mammogram 2014dult BMI Abxuoxvos22Zoster (Shingles) Vaccine (1 of 2)4COVID-19 Vaccine ( season)510/, 09/28/2021, 03/25/2021, Additional history existsInfluenza Araenfq2407/07/2025Pap Smear/02/2023, 02/07/2023 Medical Devices Not on file Procedures Procedure NamePriorityDate/TimeAssociated DiagnosisCommentsPAP SMEARRoutine 02/07/2023 5:13 AM EDT Cervical smear, as part of routine gynecological examination from Last 3 Months or Most Recently Relevant to Health Maintenance Results * Pap Smear (02/07/2023 5:13 AM EDT)Specimen (Source)Anatomical Location / LateralityCollection Method / VolumeCollection TimeReceived Time02/07/2023 5:13 AM EDT02/07/2023 5:25 AM EDT Narrative COPATH - 02/08/2023 12:39 PM EDT [facility] ? [address] [place] [address] ? [place] [id number] ? Gynecologic Cytology Consultation ? Patient Name:ARIANA MITCHELL.:1975 (Age: 47)Gender:FTaken:02/07/2023Reported:02/08/2023hysician(s):Michelle Parra BANNER PAINTER-CNPCopy To: Rec. #:[id number]: #[id number] Final Cytologic Interpretation ThinPrep Pap Test (Cervical): Satisfactory for evaluation. A transformation zone component is present. NEGATIVE FOR INTRAEPITHELIAL LESION OR MALIGNANCY. ?? jja/02/08/2023 Interpretation performed at [facility], [address] [place] [address], License number: [id number]. Electronically Signed Out By ?NAZARIO Quiroz(ASCP) Date of Last Menstrual Period: ? 01/31/23 Other Clinical Conditions: Previous treatment: LEEP 2020 Previous abnormal pap Z01.419 Weatherstrip Machine Operator exam wo/abn findings Source of Specimen ??ThinPrep Pap Test (Cervical) ? Thin Prep Pap (SECURITY INTERN) Fee Code(s): ?? G0145 Authorizing ProviderResult TypeResult StatusMichelle Mondragon BANNER PAINTER-CROSSING WATCHMAN PATHOLOGY/CYTOLOGY ORDERABLESFinal ResultPerforming OrganizationAddress City/State/ZIP CodePhone Number COPATH from Last 3 Months or Most Recently Relevant to Health Maintenance Insurance * Guarantor: [place] Arianakalli Grullon TypeRelation to PatientDate of BirthPhone Billing AddressPersonal/NsxwxzVyux1975 [address] [place] [id number] Care Teams Team MemberRelationshipSpecialtyStart DateEnd Date No Pcp, No Pcp [place] [address] [facility] - [facility]/23
--- OUTSIDE RECORDS SUMMARY | 2025-10-10 10:48 | XMS_ITS | Clinical Summary ---
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 Name Role Phone Michelle Georges DATA REPORT ANALYST Unavailable [phone] Kleber Boggs MD Primary Care Provider [phone] Michelle Georges DATA REPORT ANALYST Unavailable [phone] Allergies No known active allergies Medications No known medications Active Problems ProblemNoted DateDiagnosed DateMedian nerve neuritis, right12/23/2024 Assessment & Plan (03/27/2025 4:13 PM EDT): Resolved Assessment & Plan (12/23/2024 12:16 PM EST): Recommend cock up splint And she works at , recommend she fu with health center there to determine if this can be a work related injury Lumbar back pain12/23/2024Needs flu shot09/30/2024Mixed qglfqunduixjth27/25/2024 Assessment & Plan (09/30/2024 3:15 PM EST): No statin use Encounter for screening mammogram for malignant neoplasm of nnfqxt5609/30/2024 Assessment & Plan (09/30/2024 3:28 PM EST): Hx of breast cancer with sister 09/29 Screening for colon ihsuhk2204/02/2024 Assessment & Plan (04/02/2024 4:04 PM EDT): cologuard Hx of gout04/02/2024 Assessment & Plan (04/02/2024 4:05 PM EDT): No symptoms now, meloxicam resolved the pain Monitor for future symptoms and we can order uric acid level Overweight (BMI 25.0-29.9)04/02/2024Encounter for wellness vcxchintdkd85/25/2024 Assessment & Plan (09/30/2024 3:35 PM EST): Reviewed Ht/Wt/BMI Recommend eye exam yearly Recommend dental exams twice a year Balance work/leisure activities Exercises is recommended most days of the week (appropriate as chronic conditions allow) Follow up yearly and prn LMP 12/2023, does have hot flashes from time to time Pain of right hip02/29/2024 Assessment & Plan (04/02/2024 4:03 PM EDT): resolved Assessment & Plan (02/29/2024 4:43 PM EDT): Suspect this to be more of a bursitis issue, although she has had low back pain frequently as well. At this point we will have her trial meloxicam 15mg daily, fu in 4 weeks for a recheck Abnormal weivolpxp39/06/2024 Overview (01/25/2024): Abnormal mammogram screening, had diagnostic mamm on 01/24/24, recommends sterotacttic biopsy Assessment & Plan (04/02/2024 4:04 PM EDT): Info given for pt to contact oncology for fu appt Assessment & Plan (03/21/2024 3:42 PM EDT): I reviewed the pathology results with dr Wilkes over the phone (03/21/24) I explained that general surgery did not see need to see the patient. He did discuss with me ADH. He would be willing to see pt and review the results and determine any survaillance that would need to happen I spoke with the patient on the phone and she is in agreement Assessment & Plan (02/29/2024 4:44 PM EDT): We reviewed her biopsy results and BSE was completed At this point regarding the biopsy results, I will refer to General Surgeon Dr Calderon for second opinion Fodmfilamyh01/08/2012 Resolved Problems ProblemNoted DateDiagnosed DateResolved DateAcute non-recurrent maxillary dhlrbujmj70/ Assessment & Plan (12/23/2024 12:14 PM EST): Fluids, rest, add nasal steroid Finish atb, fu if not better URTI (acute upper respiratory infection) Assessment & Plan (02/06/2024 10:42 AM EDT): Pt was seen previously for respiratory illness. She presented with right sided pleuritic pain, cough, chest congestion, right ear pain. She tested positive for influenza. Due to current illness, she was taken off of work from 01/29/24 to 02/06/24 She is seen today to assess whether she can return to work or not. Patient cleared to return without restrictions Assessment & Plan (01/29/2024 3:04 PM EDT): Pt here for respiratory symptoms. She was seen previously on the and was prescribed Prednisone, azithromycin, benzonatate. She felt better briefly but then her symptoms worsened and now she has right sided pleuritic pain, cough, chest congestion, right ear pain. No evidence of resp compromise but is visibly upset and frustrated due to her prolonged resp illness. She is very uncomfortable due to right pleuritic pain. I will call in PO prednisone, PO augmentin along with one time dose of IM toradol to help relieve her symptoms. Due to her current illness, she is unable to go to work and we will take her off of work from 01/29/24 to 02/06/24 I will follow up with her on 02/06/24 and evaluate and reassess her to decide whether or not she can return to work on 02/07/24 Assessment & Plan (01/18/2024 3:35 PM EDT): Symptoms present for 10 days. Sinus congestion, pressure, cough, ear pressure No fever, SOB. She was prescribed Amoxicillin - she reports no improvement in her symptoms. Will call in Po prednisone, benzonatate along with z-pack Exam c/w otitis media, pharyngitis. I also heard wheezing on exam. I called in ventolin for to use as needed for it Sinus Immunizations ImmunizationAdministration DatesNext Yoana Teixeira, adult04/22/2014,11/19/2013, 10/18/2013Influenza, injectable, MDCK, preservative free, rgstmvtjepgl15/25/2024 Family History Medical HistoryRelationNameCommentsNo Known ProblemsFatherDiabetesMother HypertensionMotherNo Known ProblemsSisterRelationNameStatusCommentsFatherAlive MotherDeceasedSisterAlive Social History Tobacco UseTypesPacks/DayYears UsedDateSmoking Tobacco: NeverPassive Smoke Exposure: NeverSmokeless Tobacco: Never Tobacco Cessation:Counseling Given: No Alcohol UseStandard Drinks/WeekCommentsYes0 (1 standard drink = 0.6 oz pure alcohol)OCCASSIONALPHQ-2AnswerDate RecordedPatient Health Questionnaire-2 Score0 02/29/2024CommentsUnknownSex and Gender InformationValueDate RecordedSex Assigned at BirthNot on fileLegal TdrNduwgl61/15/2023 7:11 PM EDTGender Identity Not on fileSexual OrientationNot on file Last Filed Vital Signs Vital SignReadingTime TakenCommentsBlood Uctmpyea782/7605 3:11 PM EDT Glbbq5448 3:11 PM VUBLhlddtgiajk18.6 ??C (97.8 ??F)03/27/2025 3:11 PM EDTRespiratory Ndbv774703/27/2025 3:11 PM EDTOxygen Kkcdhnzwsi53%03/27/2025 3:11 PM EDTInhaled Oxygen Concentration--Mrmhdk55.2 kg (183 lb 6.4 oz)03/27/2025 3:11 PM QCVXcwepe375.1 cm (5' 5 )03/27/2025 3:11 PM EDTBody Mass Index30.52003/27/2025 3:11 PM EDT Plan of Treatment Not on file Insurance Care Teams Team MemberRelationshipSpecialtyStart DateEnd Date Kleber Boggs MD PCP - GeneralFamily Medicine01/18/24 Michelle Georges NP Referring PhysicianNurse Practitioner06/02/23 Michelle Georges NP Nurse PractitionerFamily Medicine01/18/24
--- OUTSIDE RECORDS SUMMARY | 2025-10-10 10:56 | XMS_ITS | CCD ---
Author Organization [facility] Care Team Providers Care Interstate Bus Dispatcher Name Role Phone AICHHOLZ, METAL FURNITURE GLAZIER MICHELLE Primary Care Unavailable AICHHOLZ, METAL FURNITURE GLAZIER MICHELLE Consulting Unavailable AICHHOLZ, METAL FURNITURE GLAZIER MICHELLE Attending Unavailable AICHHOLZ, METAL FURNITURE GLAZIER MICHELLE Admitting Unavailable DR NELSON MAYS Consulting Unavailable LYONS, DR DESHAWN Liao Consulting Unavailable AICHHOLZ, METAL FURNITURE GLAZIER MICHELLE Attending Unavailable AICHHOLZ, METAL FURNITURE GLAZIER MICHELLE Admitting Unavailable AICHHOLZ, METAL FURNITURE GLAZIER MICHELLE Primary Care Unavailable AICHHOLZ, METAL FURNITURE GLAZIER MICHELLE Consulting Unavailable LEANNE Boykin Attending Provider [phone] Iesha Boykin Unavailable Lisa Mckeon Unavailable Sonal Elena Unavailable Michelle Georges Primary Care Provider [phone] Michelle Georges Attending Provider José Manuel OFFICE RN, Michelle Unavailable Kleber Boggs MD Primary Care Provider José Manuel OFFICE RN, Michelle Unavailable José Manuel Michelle J Primary Care Provider Steph Wilkes MD Attending Provider Michelle Georges Admitting Unavailable Michelle Georges Attending Unavailable José Manuel Michelle J Primary Care Unavailable Steph Wilkes Admitting Unavailable Steph Wilkes Attending Unavailable Michelle Georges Primary Care Unavailable MARY GEORGESA Attending Unavailable JOSÉ MANUEL MICHELLE Attending Unavailable JOSÉ MANUEL MICHELLE Attending Unavailable José Manuel CHEN-C, Michelle Rae Primary Care Provider Wero SHERIFFAlondra Brittany Attending Provider José Maunel CHEN, Michelle Unavailable Kleber Boggs MD Primary Care Provider José Manuel CHEN, Michelle Unavailable Kleber Boggs MD Primary Care Provider [phone] Allergies Allergy ClassificationReported Allergen(s)Allergy TypeDate of OnsetReaction(s) Facility (1 source)Unable to AssessDrug allergy (disorder)61-60-0517FslofbfjvSt. [facility] Medications Current Medications MedicationDrug Class(es)DatesSig (Normalized)Sig (Original)amoxicillin 875 mg / clavulanate 125 mg oral tablet (4 sources)Penicillin-class AntibacterialStart: 12-23-2024 End: 41-98-3549nkzc 1 tablet by mouth in the morningamoxicillin-clavulanate (Augmentin) 875-125 MG tablet Indications: Acute non-recurrent maxillary sin usitis Take 1 tablet (875 mg) by mouth in the morning and 1 tablet (875 mg) before bedtime. Do all this for 7 days. Take with food. 20 tablet 12/23/2024 12/30/2024 ActiveStart: 02-69-1358rjxn 1 tablet by mouth every twelve hours Amoxicillin-Pot Clavulanate 875-125 MG 1 tablet Orally every 12 hrs for 10 day(s) Nov, Not-Taking/PRNdextromethorphan hydrobromide 1.5 mg/ml / pyrilamine maleate 1.5 mg/ml oral solution (1 source)Uncompetitive Z-owgrle-Q-aspartate Receptor Antagonist, Sigma-1 AgonistStart: 80-99-7235qpvg 10 mL by mouth every eight hoursCapron DM 7.5-7.5 MG/5ML 10 mL Orally every 8 hours for 5 days Dec, Activemeloxicam 15 mg oral tablet (9 sources)Nonsteroidal Anti-inflammatory DrugStart: 03-27-2024 End: 69-90-5820xoea 1 tablet by mouth once daily as neededmeloxicam (Mobic) 15 MG tablet Indications: Lumbar back pain Take 1 tablet (15 mg) by mouth Daily Ta ke 15 mg by mouth Daily Pt is taking PRN 30 tablet 1 12/23/2024 01/22/2025 ActivemethylPREDNISolone 4 mg oral tablet (9 sources)CorticosteroidStart: 02-24-2025 End: 16-46-3070tqeb 1 tablet by mouth onceMethylprednisolone (Medrol (Bret)) 4 mg tablets,dose pack Active 0 PO per package directions August 02, 2025 12:00am PO PER PKG DIR for 6 days Complies with drug therapyStart: 07-11-2020 Medrol 4 MG as directed Orally for 6 days Jul, Not-Taking/PRNpredniSONE 20 mg oral tablet (3 sources)Start: 26-24-9754ugfa 1 tablet by mouth every twelve hoursprednisone 20 MG 1 tablet Orally BID for 5 Dec, ActivetiZANidine 4 mg oral capsule (1 source)Central alpha-2 Adrenergic AgonistStart: 93-27-2028mkbd 1 capsule by mouth three times daily as needed for muscle spasmsTizanidine 4 mg capsule Active 4 MG PO Three times daily as needed for muscle spasm August 02, 2025 12:00am Complies with drug therapy Completed/Discontinued Medications MedicationDrug Class(es)DatesSig (Normalized)Sig (Original)Cetirizine (6 sources)Histamine-1 Receptor AntagonistZyrTEC Allergy Not-Taking/PRNZyrTEC Allergy Not-Takingcyclobenzaprine hydrochloride 10 mg oral tablet (6 sources)Muscle RelaxantStart: 78-33-5307qgla 1 tablet by mouth every eight hoursCyclobenzaprine HCl 10 MG 1 tablet as needed Orally Three times a day for 7 days Jul, Not-Taking/PRNdextromethorphan hydrobromide 15 mg / guaiFENesin 400 mg / pseudoephedrine hydrochloride 60 mg oraltablet (2 sources)alpha-Adrenergic Agonist, Uncompetitive G-zincil-A-aspartate Receptor Antagonist, Sigma-1 AgonistStart: 02-24-2025 End: 07-28-9985ywaa 4 tablets by mouth every twenty-four hours as needed Yyszevfgbnhmsgm-Cp-Iwylbajedzm (Capmist Dm) 60-15-400 mg tablet Discontinued 1 TAB PO EVERY 4-6 HOURS as needed for cold symptoms February 24, 2025 12:00am August 02, 2025 10:40am do not exceed 4 doses per 24 hrsKetorolac (12 sources)Nonsteroidal Anti-inflammatory Drug, Cyclooxygenase InhibitorStart: 90-13-8861Fgwogcj per 15 mg Jul, 30 mgStart: 49-62-3731Wfqpfos per 15 mg Apr, 30 mgloratadine 10 mg oral tablet (2 sources)Start: 02-24-2025 End: 21-34-1707nibx 1 tablet by mouth once dailyLoratadine 10 mg tablet Discontinued 10 MG PO Daily February 24, 2025 12:00am August 02, 2025 10:44amnitrofurantoin, macrocrystals 25 mg / nitrofurantoin, monohydrate 75 mg oral capsule (6 sources)Nitrofuran AntibacterialStart: 68-33-8444drbg 1 capsule by mouth every twelve hoursMacrobid 100 MG 1 cap(s) Orally bid for 5 day(s) Sep, Not-Taking/PRNphenazopyridine hydrochloride 200 mg oral tablet (6 sources)Start: 95-13-5905ddrz 1 tablet by mouth every eight hoursPyridium 200 MG 1 tablet after meals Orally Three times a day for 2 day(s) Sep, Not-Taking/PRNProAir HFA 108 (90 Base) MCG/ACT (6 sources)Start: 76-05-3509yakz 2 puff(s) by inhalation every four to six hours as neededProAir HFA 108 (90 Base) MCG/ACT 2 puffs as needed Inhalation every 4-6 hrs prn May, Not-Taking/PRNStart: 16-83-3011wbtc 2 puff(s) by inhalation every four to six hours as neededProAir HFA 108 (90 Base) MCG/ACT 2 puffs as needed Inhalation every 4-6 hrs prn May, Not-TakingTriamcinolone (12 sources)CorticosteroidStart: 90-74-8249PSBIAHU - 10 mg Jul, 40 mg Start: 21-29-4211SSZIMBV - 10 mg Apr, 40 mg Problems Active Problems Problem ClassificationProblemDateDocumented DateEpisodic/ChronicDisorders of lipid metabolism (16 sources)Mixed hyperlipidemia; Translations: [Mixed hyperlipidemia]Onset: 655546-60-7063UvaudppFrmdeubsirwlt symptoms and ill-defined conditions (3 sources)DysuriaEpisodicOther ear and sense organ disorders (6 sources)Otitis externa; Translations: [Unspecified otitis externa, right ear] ChronicOther eye disorders (1 source)Conjunctival hemorrhage, left eyeEpisodicOther nervous system disorders (12 sources)Median nerve neuritis; 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, right upper limb]Onset: 685638-96-4463KgcobaoUskiy non-traumatic joint disorders (4 sources)Effusion, left ankle; Translations: [EFFUSION LEFT ANKLE]Onset: 19-77-8478HzzvlcbqGzcnq upper respiratory disease (8 sources)Allergic rhinitis; Translations: [Allergic rhinitis, unspecified] 77-21-3232KgrpzfmKldym upper respiratory disease (1 source)Allergic rhinitis, unspecified; Translations: [Allergic rhinitis, cause unspecified]94-46-3123LnhiuaiLtbpbcef codes; unclassified (1 source)Family history of malignant neoplasm of breast; Translations: [FAMILY HX MALIG NEOPLASM OF BREAST]Onset: 04-06-3755SokxzzunPcairvd and strains (2 sources)Strain of right trapezius muscle; Translations: [Strain of other muscles, fascia and tendons at shoulder and upper arm level, right arm, initial encounter]06-12-2698FilmmillZrjhebt tract infections (3 sources)Acute cystitis with hematuriaEpisodic Past or Other Problems Problem ClassificationProblemDateDocumented DateEpisodic/ChronicBlindness and vision defects (15 sources)Astigmatism; Translations: [Unspecified astigmatism, unspecified eye]Onset: 516384-73-3140MiiklyhpYjjkskjesbwqs and screening for infectious disease (16 sources)Needs influenza immunization; Translations: [Encounter for immunization]Onset: 518231-95-9323KkieulwcZnjwl connective tissue disease (15 sources)H/O: gout; Translations: [Personal history of other diseases of the musculoskeletal system and connective tissue]Onset: 490380-99-9892Ysauuwuf Other non-traumatic joint disorders (15 sources)Hip pain; Translations: [Pain in right hip]Onset: 02-29-2024 32-18-5705AfcdjxrcItncd nutritional; endocrine; and metabolic disorders (19 sources)Body mass index 25-29 - overweight; Translations: [Overweight]Onset: 966417-03-4917DgwghzwtHxjxe screening for suspected conditions (not mental disorders or infectious disease) (20 sources)Encounter for screening mammogram for malignant neoplasm of breast; Translations: [Mammography abnormal]Onset: 86-15-6745RbtcriwsVmubm upper respiratory infections (15 sources)Sinusitis; Translations: [Chronic sinusitis, unspecified]Onset: 01-11-2024 Resolved: 642105-68-3859MlubkgdAckki upper respiratory infections (20 sources)Acute maxillary sinusitis, unspecified; Translations: [Acute upper respiratory infection, unspecified]Onset: 01-18-2024 Resolved: 55-74-1100HnmwhhvrXbvndsjfnjv; intervertebral disc disorders; other back problems (20 sources)Sciatica; Translations: [Sciatica, left side]Onset: 12-23-2024 92-74-0672OpyhhtvpWkguuiryeikz (1 source)Contact with and (suspected) exposure to covid-19 Z20.822 Results Test NameValueInterpretationReference RangeFacilityMM TOMOSYNTHESIS SCREENING BI on 29-10-0492YycBel[place], [place] [address] Mammography Report Signed Patient: ARIANA MITCHELL MR#: [id number] : 1975 Acct:[id number] Age/Sex: 49 / F ADM Date: 03/11/25 Loc: MAMMO Attending Dr: Michelle Georges NP Ordering Physician: Michelle Georges NP Results: Date of Service: 03/11/25 Follow Up: Procedure(s): MM tomosynthesis screening BI Accession Number(s): [id number] cc: Michelle Georges NP Patient Name: ARIANA MITCHELL MR#: [id number] : 1975 Exam Date: 03/11/2025 Ordering Doctor: [...] breast cancer at age 49. LOCATION: [facility] BREAST COMPOSITION: The breasts are heterogeneously dense,which [...] Signed By: 03/12/25 1553 DD/ 1552 TD/TT: Annealing Torch Operator:TBHRadiology, Radiologist, - 03/12/2025 [place] [address] Mammography Report Signed Patient: ARIANA MITCHELL MR#: [id number] : 1975 Acct:[id number] Age/Sex: 49 / F ADM Date: 03/11/25 Loc: MAMMO Attending Dr: Michelle Georges NP Ordering Physician: Michelle Georges NP Results: Date of Service: 03/11/25 Follow Up: Procedure(s): MM tomosynthesis screening BI Accession Number(s): [id number] cc: Michelle Georges NP Patient Name: ARIANA MITCHELL MR#: [id number] : 1975 Exam Date: 03/11/2025 Ordering Doctor: [...] breast cancer at age 49. LOCATION: [facility] BREAST COMPOSITION: The breasts are heterogeneously dense,which [...] Aguilar M.D. Signed By: 03/12/25 1553 DD/ 155 TD/TT: Annealing Torch Operator: DOT HealthcareRadiology Study observation (narrative)[facility] InstituteMM TOMOSYNTHESIS SCREENING BIOrdered By: Radiologist Radiology on 08-21-6238ARZRFreeman Cancer Institute Work Phone: all CBC WITH AUTO DIFFon 71-49-6548IGTSPBGIE ABSOLUTE AUTO0.1NOMS HealthcareBasophils/100 WBC (Bld)1 %0.2 - 2.0 %[facility] Eosinophils/100 WBC (Bld)2.5 %0.9 - 7.0 %NOM HealthcareErythrocyte distribution width (RBC) [Ratio]11.9 %11.0 - 15.0 %NOM HealthcareHematocrit (Bld) [Volume fraction]38.9 %36.0 - 48.0 %NOM HealthcareHemoglobin (Bld) [Mass/Vol]13.2 g/dL 12.0 - 16.0 g/dLFreeman Cancer InstituteIMMATURE GRANULOCYTES ABS AUTO0.03NOMissouri Baptist Medical Center Immature granulocytes/100 WBC (Bld)0.4 %0.0 - 0.5 %[facility] Cancer InstituteLYMPHOCYTES ABSOLUTE AUTO2.4NOMissouri Baptist Medical CenterLymphocytes/100 WBC (Bld)28.5 %20.5 - 60.0 %[facility] HospitalH (RBC) [Entitic mass]30.3 pg26.7 - 34.0 pgTwo Rivers Psychiatric HospitalHC (RBC) [Mass/Vol]33.9 g/dL29.9 - 35.2 g/dLTwo Rivers Psychiatric HospitalV (RBC) [Entitic vol]89.4 fL 81.0 - 99.0 fLFreeman Cancer InstituteMONOCYTES ABSOLUTE AUTO0.8[facility] Monocytes/100 WBC (Bld)10.2 %1.7 - 12.0 %[facility] Cancer InstituteNEUTROPHILS ABSOLUTE AUTO4.8NOMissouri Baptist Medical CenterNeutrophils/100 WBC (Bld)57.4 %43.0 - 75.0 %[facility] Cancer InstitutePlatelet mean volume (Bld) [Entitic vol]9.6 fL9.5 - 13.5 fLFreeman Cancer InstituteTB EO #0.2NOMS [facility] Mercy HospitalTB XEW916DGTJCapital Region Medical Center RBC4.35NOCapital Region Medical Center WBC8.3NOMissouri Baptist Medical CenterCLINISYNCNOMS HealthcareOutside Mammographyon 81-45-9156Qdjuxrg Tv[id number]#1.00TIFF NormalUc Medical CenterOutside Mammography [id number]#1.00TIFFNormalUc Medical CenterOutside Im[id number]#1.00TIFFNoal Uc Medical CenterPathology Noteon 33-06-5293Snjuwflyq Note [id number]#1.00TIFFNormParkview HealthPhysician Referralon 60-00-4604Owxlcnrsl Referral [id number]#1.00TIFFNormalFisher Levindale Hebrew Geriatric Center And HospitalLon 96-23-1016WQsxjudpt: [id number] Received: 02/07/24 Status: TARAN [place] Num: [id number] Spec Type: Surgical Subm Dr: LEANNE Stapleton Tissues: A Breast Core CALCIFICATIONS (RT BREAST MASS) Procedures: HE/4, Gross/Micro L4 Age/ Patient Sex Location Account Attending Physician StephenAriana Courtney 48/F LABELL [id number] LEANNE Stapleton SPEC NUM: [id number] RECD: 02/07/24 STATUS: CADYKeyur [place] NUM: [id number] PAOLO: 02/06/24 DR: LEANNE Stapleton ENTERED: 02/07/24 [facility] DR: Yoly Sorensen SPEC TYPE: Surgical [...] Totally submitted in 2 cassettes. CPT Codes 84774 Specimen: [id number] Received: 02/07/24 Status: TARAN [place]rett Num: [id number] Spec Type: Surgical Subm Dr: Michelle Georges, OFFICE RN-C Tissues: A Breast Core CALCIFICATIONS (RT BREAST MASS) Procedures: /Chad, Gross/Micro L4 Patient: Ariana Mitchell [id number] (Continued) Signed (signature on file) Shama Kwon MD 02/10/[address] [place] [address] Physician GroupESTELLE DOHENY EYE HOSPITALO POST BIOPSY RIGHTon 59-96-3282[address] [address] Mammography Report Signed Patient: ARIANA MITCHELL MR#: [id number] : 1975 Acct:[id number] Age/Sex: 48 / F ADM Date: 02/06/24 Loc: MAMMO Attending Dr: Michelle Georges NP Ordering Physician: Michelle Georges NP Results: Date of Service: 02/06/24 Follow Up: Procedure(s): MM post biopsy RT Accession Number(s): [id number] cc: Michelle Georges NP Patient Name: ARIANA MITCHELL MR#: [id number] : 1975 Exam Date: 02/06/2024 Ordering Doctor: DANNY Georges CNP RADIOLOGY REPORT PROCEDURE: MM POST BIOPSY RT COMPARISON: MM STEREOTACTIC LOC RT, 02/06/2024. MM DIAGNOSTIC MAMMO UNILAT RT, 01/24/2024. MM TOMOSYNTHESIS SCREENING BI, 01/09/2024. MG MAMM SCREEN 3D SHANE CAD, 12/20/2022. INDICATIONS: Microcalcifications BREAST COMPOSITION: FINDINGS: BIOPSY MARKER: A metallic marker has been placed in the targeted location within the upper-outer quadrant, approximately 9 o'clock, of the right breast. BREAST FINDINGS: Expected post biopsy findings. RECOMMENDATIONS: Dictated by: Nelson Mays M.D. on 02/06/2024 at 15:23 Approved by: Nelson Mays M.D. on 02/06/2024 at 15:27 Dictated By: Nelson Mays M.D. Signed By: 02/06/24 1528 DD/ 1527 TD/TT: Annealing Torch Operator:TBHRadiology, Radiologist, MD - 02/06/2024 [place] [address] Mammography Report Signed Patient: ARIANA MITCHELL MR#: [id number] : 1975 Acct:[id number] Age/Sex: 48 / F ADM Date: 02/06/24 Loc: MAMMO Attending Dr: Michelle Georges NP Ordering Physician: Michelle Georges NP Results: Date of Service: 02/06/24 Follow Up: Procedure(s): MM post biopsy RT Accession Number(s): [id number] cc: Michelle Georges NP Patient Name: ARIANA MITCHELL MR#: [id number] : 1975 Exam Date: 02/06/2024 Ordering Doctor: DANNY Georges CNP RADIOLOGY REPORT PROCEDURE: MM POST BIOPSY RT COMPARISON: MM STEREOTACTIC LOC RT, 02/06/2024. MM DIAGNOSTIC MAMMO UNILAT RT, 01/24/2024. MM TOMOSYNTHESIS SCREENING BI, 01/09/2024. MG MAMM SCREEN 3D SHANE CAD, 12/20/2022. INDICATIONS: Microcalcifications BREAST COMPOSITION: FINDINGS: BIOPSY MARKER: A metallic marker has been placed in the targeted location within the upper-outer quadrant, approximately 9 o'clock, of the right breast. BREAST FINDINGS: Expected post biopsy findings. RECOMMENDATIONS: Dictated by: Nelson Mays M.D. on 02/06/2024 at 15:23 Approved by: Nelson Mays M.D. on 02/06/2024 at 15:27 Dictated By: Nelson Mays M.D. Signed By: 02/06/24 1528 DD/ 1527 TD/TT: Annealing Torch Operator: [facility] MED[facility] CENTERNelsy HealthcareRadiology Study observation (narrative)[facility] Southern HealthcareO POST BIOPSY RIGHTOrdered By: Radiologist Radiology on 92-47-2258NFLAFreeman Cancer Institute Work Phone: mg stereo Guidance for percutaneous biopsy.core needle of Breast - righton 38-78-1742KwtBel[place], [place] [address] Mammography Report Signed Patient: ARIANA MITCHELL MR#: [id number] : 1975 Acct:[id number] Age/Sex: 48 / F ADM Date: 02/06/24 Loc: MAMMO Attending Dr: Michelle Georges NP Ordering Physician: Michelle Georges NP Results: Date of Service: 02/06/24 Follow Up: Procedure(s): MM stereotactic loc RT Accession Number(s): [id number] cc: Michelle Georges NP Patient Name: ARIANA MITCHELL MR#: [id number] : 1975 Exam Date: 02/06/2024 Ordering Doctor: DANNY Georges CNP RADIOLOGY REPORT PROCEDURE: MM STEREOTACTIC LOC RT COMPARISON: MM DIAGNOSTIC MAMMO UNILAT RT, 01/24/2024. MM TOMOSYNTHESIS SCREENING BI, 01/09/2024. MG MAMM SCREEN 3D SHANE CAD, 12/20/2022. MG MAMM SCREEN SHANE W CAD, 09/08/2020. INDICATIONS: ABNORMAL RT BREAST MAMMOGRAM DESCRIPTION: Following informed consent, digital stereotactic mammographic views were obtained to localize the lesion. Multiple vacuum-assisted core biopsies were obtained. Specimen images were obtained to confirm proper sampling. The location of the biopsy was then marked as indicated below. FINDINGS: RECOMMENDATIONS: SPECIMEN #, LOCATION: 5 core samples; upper outer quadrant mid breast.. SPECIMEN IMAGE: Cluster of punctate microcalcifications within core 1, 3, 4, and 5 BIOPSY NEEDLE: 10 gauge Revolve(r) vacuum core biopsy needle. MARKER(S) PLACED: A single metallic marker was placed in the appropriate targeted location. MEDICATION: Buffered 1% lidocaine superficial;1% lidocaine with epinephrine deep. COMPLICATIONS: None. PATHOLOGY / LAB: Pending. CONCLUSION: 1. Technically successful biopsy of the breast lesion. 2. Pathology results are pending. An addendum will be added when pathology results are final. Dictated by: Nelson Mays M.D. on 02/06/2024 at 15:21 Approved by: Nelson Mays M.D. on 02/06/2024 at 15:23 Dictated By: Nelson Mays M.D. Signed By: 02/06/24 1524 DD/ 1523 TD/TT: Annealing Torch Operator:TBHRadiology, Radiologist, - 02/07/2024 [facility] [place] [id number] Mammography Report Signed Patient: ARIANA MITCHELL MR#: [id number] : 1975 Acct:[id number] Age/Sex: 48 / F ADM Date: 02/06/24 Loc: MAMMO Attending Dr: Michelle Georges NP Ordering Physician: Michelle Georges NP Results: Date of Service: 02/06/24 Follow Up: Procedure(s): MM stereotactic loc RT Accession Number(s): [id number] cc: Michelle Georges NP Patient Name: ARIANA MITCHELL MR#: [id number] : 1975 Exam Date: 02/06/2024 Ordering Doctor: DANNY Georges CNP RADIOLOGY REPORT PROCEDURE: MM STEREOTACTIC LOC RT COMPARISON: MM DIAGNOSTIC MAMMO UNILAT RT, 01/24/2024. MM TOMOSYNTHESIS SCREENING BI, 01/09/2024. MG MAMM SCREEN 3D SHANE CAD, 12/20/2022. MG MAMM SCREEN SHANE W CAD, 09/08/2020. INDICATIONS: ABNORMAL RT BREAST MAMMOGRAM DESCRIPTION: Following informed consent, digital stereotactic mammographic views were obtained to localize the lesion. Multiple vacuum-assisted core biopsies were obtained. Specimen images were obtained to confirm proper sampling. The location of the biopsy was then marked as indicated below. FINDINGS: RECOMMENDATIONS: SPECIMEN #, LOCATION: 5 core samples; upper outer quadrant mid breast.. SPECIMEN IMAGE: Cluster of punctate microcalcifications within core 1, 3, 4, and 5 BIOPSY NEEDLE: 10 gauge Revolve(r) vacuum core biopsy needle. MARKER(S) PLACED: A single metallic marker was placed in the appropriate targeted location. MEDICATION: Buffered 1% lidocaine superficial;1% lidocaine with epinephrine deep. COMPLICATIONS: None. PATHOLOGY / LAB: Pending. CONCLUSION: 1. Technically successful biopsy of the breast lesion. 2. Pathology results are pending. An addendum will be added when pathology results are final. Dictated by: Nelson Mays M.D. on 02/06/2024 at 15:21 Approved by: Nelson Mays M.D. on 02/06/2024 at 15:23 Dictated By: Nelson Mays M.D. Signed By: 02/06/24 1524 DD/ 1523 TD/TT: Annealing Torch Operator: DOT LongoRadiology Study observation (narrative)[facility] stereo Guidance for percutaneous biopsy.core needle of Breast - rightOrdered By: Radiologist Radiology on 19-96-4035TSLG [employer] Work Phone: xr CHEST 2Von 74-10-3758HljBel[place], [place] [address] XRay Report Signed Patient: ARIANA MITCHELL MR#: [id number] : 1975 Acct:[id number] Age/Sex: 48 / F ADM Date: 01/29/24 Loc: RAD Attending Dr: Shaikh Kimani Hoffman Ordering Physician: Shaikh Yasmin Harman Date of Service: 01/29/24 Procedure(s): XR chest 2V Accession Number(s): [id number] cc: Michelle Georges OFFICE RN; Shaikh Yasmin Harman [facility] [place] [address] Patient Name: ARIANA MITCHELL MRN: [facility]:[id number] date: 1975 Sex: F Assigned Patient Location: [facility] Current Patient Location: Accession/Order Number: [id number] Exam Date: 01/29/2024 16:02 Report Date: 01/30/2024 07:35 At the request of: SHAIKH KIMANI Procedure: XR chest 2V EXAMINATION: XR chest 2V HISTORY: acute upper respiratory infection J06.9 COMPARISON: No relevant comparison available. TECHNIQUE: PA and lateral FINDINGS: LUNGS: No significant pulmonary parenchymal abnormalities. VASCULATURE: No increased pulmonary vasculature. PLEURA: No pneumothorax, effusion, or pleural thickening. CARDIAC: No cardiomegaly or cardiac silhouette abnormality. MEDIASTINUM: No visible mass or adenopathy. BONES: No fracture or visible bone lesion. Rotatory dextrocurvature with degenerative changes OTHER: Negative. XR/XR chest 2V IMPRESSION: No acute cardiopulmonary process Electronically authenticated by: DESHAWN JOSEPH Date: 01/30/2024 07:35 Dictated By: Deshawn Joseph M.D. Signed By: 01/30/24 0738 DD/ 0735 TD/TT: Annealing Torch Operator:MANUELHRadiology, Radiologist, - 01/30/2024 [place] [address] XRay Report Signed Patient: ARIANA MITCHELL MR#: [id number] : 1975 Acct:[id number] Age/Sex: 48 / F ADM Date: 01/29/24 Loc: RAD Attending Dr: Shaikh Kimani Hoffman Ordering Physician: Shaikh Yasmin Harman Date of Service: 01/29/24 Procedure(s): XR chest 2V Accession Number(s): [id number] cc: Michelle Georges OFFICE RN; Shaikh Yasmin Harman [place] [id number] Patient Name: ARIANA MITCHELL MRN: [id number] date: 1975 Sex: F Assigned Patient Location: RAD Current Patient Location: Accession/Order Number: [id number] Exam Date: 01/29/2024 16:02 Report Date: 01/30/2024 07:35 At the request of: SHAIKH KIMANI Procedure: XR chest 2V EXAMINATION: XR chest 2V HISTORY: acute upper respiratory infection J06.9 COMPARISON: No relevant comparison available. TECHNIQUE: PA and lateral FINDINGS: LUNGS: No significant pulmonary parenchymal abnormalities. VASCULATURE: No increased pulmonary vasculature. PLEURA: No pneumothorax, effusion, or pleural thickening. CARDIAC: No cardiomegaly or cardiac silhouette abnormality. MEDIASTINUM: No visible mass or adenopathy. BONES: No fracture or visible bone lesion. Rotatory dextrocurvature with degenerative changes OTHER: Negative. XR/XR chest 2V IMPRESSION: No acute cardiopulmonary process Electronically authenticated by: DESHAWN JOSEPH Date: 01/30/2024 07:35 Dictated By: Deshawn Joseph M.D. Signed By: 01/30/24 0738 DD/ 0735 TD/TT: Annealing Torch Operator: [facility] HealthcareRadiology Study observation (narrative)NOMS HealthcareXR CHEST 2V Ordered By: Radiologist Radiology on 98-29-0913[facility] Work Phone: mg Breast - right Diagnosticon 30-56-9397[address] [address] Mammography Report Signed Patient: ARIANA MITCHELL MR#: [id number] : 1975 Acct:[id number] Age/Sex: 48 / F ADM Date: 01/24/24 Loc: MAMMO Attending Dr: Michelle Georges NP Ordering Physician: Michelle Georges NP Results: Date of Service: 01/24/24 Follow Up: Procedure(s): MM diagnostic mammo unilat RT Accession Number(s): [id number] cc: Michelle Georges NP Patient Name: ARIANA MITCHELL MR#: [id number] : 1975 Exam Date: 01/24/2024 Ordering Doctor: DANNY Georges CNP RADIOLOGY REPORT PROCEDURE: MM DIAGNOSTIC MAMMO UNILAT RT, 01/24/2024, 09:59 US BREAST RT LIMITED, 01/24/2024, 11:24 COMPARISON: MM TOMOSYNTHESIS SCREENING BI, 01/09/2024. INDICATIONS: abnormal screening mammogram right breast Calculator Name NCI Breast Cancer Risk Assessment Tool 5 Year Breast Cancer Risk 1.40% Lifetime Breast Cancer Risk 12.90% Personal Breast Cancer No Personal Ovarian Cancer No Treatments None Family Cancers Aunt-paternal with breast cancer at age 50. LOCATION: [facility] BREAST COMPOSITION: Extremely dense, which lowers the sensitivity of mammography. FINDINGS: DIAGNOSTIC CATEGORY 4--SUSPICIOUS FOR MALIGNANCY. FINDING DOES NOT EXHIBIT CLASSIC FINDINGS OF BREAST CANCER: Two spot magnification views demonstrate an 8.2 x 7.8 by 5.8 mm partially circumscribed lobular mass with faint pleomorphic microcalcifications. No corresponding abnormality identified on ultrasound. Noted on ultrasound at the 1 o'clock position is a 3.9 mm simple cyst. Stereotactic biopsy of the right breast mass is recommended RECOMMENDATIONS: STEREOTACTIC BREAST BIOPSY: RIGHT BREAST PLEASE NOTE: A NORMAL MAMMOGRAM DOES NOT EXCLUDE THE POSSIBILITY OF BREAST CANCER. A CLINICALLY SUSPICIOUS PALPABLE LUMP SHOULD BE BIOPSIED. Dictated by: Deshawn Joseph MD on 01/24/2024 at 11:48 Approved by: Deshawn Joseph MD on 01/24/2024 at 11:51 Dictated By: Deshawn Joseph M.D. Signed By: 01/24/24 1152 DD/ 1151 TD/TT: Annealing Torch Operator:TBHRadiology, RadiologistMD - 01/24/[address] [address] Mammography Report Signed Patient: ARIANA MITCHELL MR#: [id number] : 1975 Acct:[id number] Age/Sex: 48 / F ADM Date: 01/24/24 Loc: MAMMO Attending Dr: Michelle Georges NP Ordering Physician: Michelle Georges NP Results: Date of Service: 01/24/24 Follow Up: Procedure(s): MM diagnostic mammo unilat RT Accession Number(s): [id number] cc: Michelle Georges NP Patient Name: ARIANA MITCHELL MR#: [id number] : 1975 Exam Date: 01/24/2024 Ordering Doctor: DANNY Georges CNP RADIOLOGY REPORT PROCEDURE: MM DIAGNOSTIC MAMMO UNILAT RT, 01/24/2024, 09:59 US BREAST RT LIMITED, 01/24/2024, 11:24 COMPARISON: MM TOMOSYNTHESIS SCREENING BI, 01/09/2024. INDICATIONS: abnormal screening mammogram right breast Calculator Name NCI Breast Cancer Risk Assessment Tool 5 Year Breast Cancer Risk 1.40% Lifetime Breast Cancer Risk 12.90% Personal Breast Cancer No Personal Ovarian Cancer No Treatments None Family Cancers Aunt-paternal with breast cancer at age 50. LOCATION: [facility] BREAST COMPOSITION: Extremely dense, which lowers the sensitivity of mammography. FINDINGS: DIAGNOSTIC CATEGORY 4--SUSPICIOUS FOR MALIGNANCY. FINDING DOES NOT EXHIBIT CLASSIC FINDINGS OF BREAST CANCER: Two spot magnification views demonstrate an 8.2 x 7.8 by 5.8 mm partially circumscribed lobular mass with faint pleomorphic microcalcifications. No corresponding abnormality identified on ultrasound. Noted on ultrasound at the 1 o'clock position is a 3.9 mm simple cyst. Stereotactic biopsy of the right breast mass is recommended RECOMMENDATIONS: STEREOTACTIC BREAST BIOPSY: RIGHT BREAST PLEASE NOTE: A NORMAL MAMMOGRAM DOES NOT EXCLUDE THE POSSIBILITY OF BREAST CANCER. A CLINICALLY SUSPICIOUS PALPABLE LUMP SHOULD BE BIOPSIED. Dictated by: Deshawn Joseph MD on 01/24/2024 at 11:48 Approved by: Deshawn Joseph MD on 01/24/2024 at 11:51 Dictated By: Deshawn Joseph M.D. Signed By: 01/24/24 1152 DD/ 1151 TD/TT: Annealing Torch Operator: DOT LongoMG Breast - right DiagnosticOrdered By: Radiologist Radiology on 34-69-1431CADQ [employer] Work Phone: No [facility] Informationon 90-50-4027Oootepzon Study observation (narrative)DOT LongoUS Breast - right limitedon 32-71[place] [address] Ultrasound Report Signed Patient: ARIANA MITCHELL MR#: [id number] : 1975 Acct:[id number] Age/Sex: 48 / F ADM Date: 01/24/24 Loc: MAMMO Attending Dr: Michelle Georges NP Ordering Physician: Michelle Georges NP Date of Service: 01/24/24 Procedure(s): US breast RT limited Accession Number(s): [id number] cc: Michelle Georges NP Patient Name: ARIANA MITCHELL MR#: [id number] : 1975 Exam Date: 01/24/2024 Ordering Doctor: DANNY Georges CNP RADIOLOGY REPORT PROCEDURE: MM DIAGNOSTIC MAMMO UNILAT RT, 01/24/2024, 09:59 US BREAST RT LIMITED, 01/24/2024, 11:24 COMPARISON: MM TOMOSYNTHESIS SCREENING BI, 01/09/2024. INDICATIONS: abnormal screening mammogram right breast Calculator Name NCI Breast Cancer Risk Assessment Tool 5 Year Breast Cancer Risk 1.40% Lifetime Breast Cancer Risk 12.90% Personal Breast Cancer No Personal Ovarian Cancer No Treatments None Family Cancers Aunt-paternal with breast cancer at age 50. LOCATION: [facility] BREAST COMPOSITION: Extremely dense, which lowers the sensitivity of mammography. FINDINGS: DIAGNOSTIC CATEGORY 4--SUSPICIOUS FOR MALIGNANCY. FINDING DOES NOT EXHIBIT CLASSIC FINDINGS OF BREAST CANCER: Two spot magnification views demonstrate an 8.2 x 7.8 by 5.8 mm partially circumscribed lobular mass with faint pleomorphic microcalcifications. No corresponding abnormality identified on ultrasound. Noted on ultrasound at the 1 o'clock position is a 3.9 mm simple cyst. Stereotactic biopsy of the right breast mass is recommended RECOMMENDATIONS: STEREOTACTIC BREAST BIOPSY: RIGHT BREAST PLEASE NOTE: A NORMAL MAMMOGRAM DOES NOT EXCLUDE THE POSSIBILITY OF BREAST CANCER. A CLINICALLY SUSPICIOUS PALPABLE LUMP SHOULD BE BIOPSIED. Dictated by: Deshawn Joseph MD on 01/24/2024 at 11:48 Approved by: Deshawn Joseph MD on 01/24/2024 at 11:51 Dictated By: Deshawn Joseph M.D. Signed By: 01/24/24 1153 DD/ 1151 TD/TT: Annealing Torch Operator:TBHRadiology, Radiologist, - 01/24/2024 [place] [address] Ultrasound Report Signed Patient: ARIANA MITCHELL MR#: [id number] : 1975 Acct:[id number] Age/Sex: 48 / F ADM Date: 01/24/24 Loc: MAMMO Attending Dr: Michelle Georges NP Ordering Physician: Michelle Georges NP Date of Service: 01/24/24 Procedure(s): US breast RT limited Accession Number(s): [id number] cc: Michelle Georges NP Patient Name: ARIANA MITCHELL MR#: [id number] : 1975 Exam Date: 01/24/2024 Ordering Doctor: DANNY Georges CNP RADIOLOGY REPORT PROCEDURE: MM DIAGNOSTIC MAMMO UNILAT RT, 01/24/2024, 09:59 US BREAST RT LIMITED, 01/24/2024, 11:24 COMPARISON: MM TOMOSYNTHESIS SCREENING BI, 01/09/2024. INDICATIONS: abnormal screening mammogram right breast Calculator Name NCI Breast Cancer Risk Assessment Tool 5 Year Breast Cancer Risk 1.40% Lifetime Breast Cancer Risk 12.90% Personal Breast Cancer No Personal Ovarian Cancer No Treatments None Family Cancers Aunt-paternal with breast cancer at age 50. LOCATION: [facility] BREAST COMPOSITION: Extremely dense, which lowers the sensitivity of mammography. FINDINGS: DIAGNOSTIC CATEGORY 4--SUSPICIOUS FOR MALIGNANCY. FINDING DOES NOT EXHIBIT CLASSIC FINDINGS OF BREAST CANCER: Two spot magnification views demonstrate an 8.2 x 7.8 by 5.8 mm partially circumscribed lobular mass with faint pleomorphic microcalcifications. No corresponding abnormality identified on ultrasound. Noted on ultrasound at the 1 o'clock position is a 3.9 mm simple cyst. Stereotactic biopsy of the right breast mass is recommended RECOMMENDATIONS: STEREOTACTIC BREAST BIOPSY: RIGHT BREAST PLEASE NOTE: A NORMAL MAMMOGRAM DOES NOT EXCLUDE THE POSSIBILITY OF BREAST CANCER. A CLINICALLY SUSPICIOUS PALPABLE LUMP SHOULD BE BIOPSIED. Dictated by: Deshawn Joseph MD on 01/24/2024 at 11:48 Approved by: Deshawn Joseph MD on 01/24/2024 at 11:51 Dictated By: Deshawn Joseph M.D. Signed By: 01/24/24 1153 DD/ 1151 TD/TT: Annealing Torch Operator: CallmyNameNelsy BitStashUS Breast - right limitedOrdered By: Radiologist Radiology on 91-51-2204[facility] Work Phone: mm TOMOSYNTHESIS SCREENING BIon 32-74-0325ZjvBel[place], [place] [address] Mammography Report Signed Patient: ARIANA MITCHELL MR#: [id number] : 1975 Acct:[id number] Age/Sex: 48 / F ADM Date: 01/09/24 Loc: MAMMO Attending Dr: Michelle Georges NP Ordering Physician: Michelle Georges NP Results: Date of Service: 01/09/24 Follow Up: Procedure(s): MM tomosynthesis screening BI Accession Number(s): [id number] cc: Michelle Georges NP Patient Name: ARIANA MITCHELL MR#: [id number] : 1975 Exam Date: 01/09/2024 Ordering Doctor: DANNY Georges CNP RADIOLOGY REPORT PROCEDURE: MM TOMOSYNTHESIS SCREENING BI COMPARISON: MG MAMM SCREEN 3D SHANE CAD, 12/20/2022. MG MAMM SCREEN SHANE W CAD, 09/08/2020. INDICATIONS: Screening for malignant neoplasm Calculator Name NCI Breast Cancer Risk Assessment Tool 5 Year Breast Cancer Risk 1.40% Lifetime Breast Cancer Risk 12.90% Personal Breast Cancer No Personal Ovarian Cancer No Treatments None Family Cancers Aunt-paternal with breast cancer at age 50. LOCATION: [facility] BREAST COMPOSITION: Extremely dense, which lowers the sensitivity of mammography. FINDINGS: DIAGNOSTIC CATEGORY 0--INCOMPLETE: NEED ADDITIONAL IMAGING EVALUATION. Scattered benign-appearing nodules are present. Scattered benign-appearing calcifications are present. Scattered benign-appearing lymph nodes are present. RIGHT BREAST: New cluster of subtle microcalcifications best seen on the CC projection along the 12 o'clock, mid to posterior breast. Spot magnification is recommended for further characterization. LEFT BREAST: No significant suspicious finding. RECOMMENDATIONS: ADDITIONAL MAMMOGRAPHIC VIEWS REQUIRED: RIGHT BREAST - spot magnification PLEASE NOTE: A NORMAL MAMMOGRAM DOES NOT EXCLUDE THE POSSIBILITY OF BREAST CANCER. A CLINICALLY SUSPICIOUS PALPABLE LUMP SHOULD BE BIOPSIED. Dictated by: Deshawn Joseph MD on 01/10/2024 at 09:29 Approved by: Deshawn Joseph MD on 01/10/2024 at 09:31 Dictated By: Deshawn Joseph M.D. Signed By: 01/10/24931 DD/ 0 TD/TT: Annealing Torch Operator:TBHRadiology, Radiologist, - 01/10/2024 [place] [address] Mammography Report Signed Patient: ARIANA MITCHELL MR#: [id number] : 1975 Acct:[id number] Age/Sex: 48 / F ADM Date: 01/09/24 Loc: MAMMO Attending Dr: Michelle Georges NP Ordering Physician: Michelle Georges NP Results: Date of Service: 01/09/24 Follow Up: Procedure(s): MM tomosynthesis screening BI Accession Number(s): [id number] cc: Michelle Georges NP Patient Name: ARIANA MITCHELL MR#: [id number] : 1975 Exam Date: 01/09/2024 Ordering Doctor: DANNY Georges CNP RADIOLOGY REPORT PROCEDURE: MM TOMOSYNTHESIS SCREENING BI COMPARISON: MG MAMM SCREEN 3D SHANE CAD, 12/20/2022. MG MAMM SCREEN SHANE W CAD, 09/08/2020. INDICATIONS: Screening for malignant neoplasm Calculator Name NCI Breast Cancer Risk Assessment Tool 5 Year Breast Cancer Risk 1.40% Lifetime Breast Cancer Risk 12.90% Personal Breast Cancer No Personal Ovarian Cancer No Treatments None Family Cancers Aunt-paternal with breast cancer at age 50. LOCATION: [facility] BREAST COMPOSITION: Extremely dense, which lowers the sensitivity of mammography. FINDINGS: DIAGNOSTIC CATEGORY 0--INCOMPLETE: NEED ADDITIONAL IMAGING EVALUATION. Scattered benign-appearing nodules are present. Scattered benign-appearing calcifications are present. Scattered benign-appearing lymph nodes are present. RIGHT BREAST: New cluster of subtle microcalcifications best seen on the CC projection along the 12 o'clock, mid to posterior breast. Spot magnification is recommended for further characterization. LEFT BREAST: No significant suspicious finding. RECOMMENDATIONS: ADDITIONAL MAMMOGRAPHIC VIEWS REQUIRED: RIGHT BREAST - spot magnification PLEASE NOTE: A NORMAL MAMMOGRAM DOES NOT EXCLUDE THE POSSIBILITY OF BREAST CANCER. A CLINICALLY SUSPICIOUS PALPABLE LUMP SHOULD BE BIOPSIED. Dictated by: Deshawn Joseph MD on 01/10/2024 at 09:29 Approved by: Deshawn Joseph MD on 01/10/2024 at 09:31 Dictated By: Deshawn Joseph M.D. Signed By: 01/10/24931 DD/ 0 TD/TT: Annealing Torch Operator: [facility] InstituteRadiology Study observation (narrative)[facility] TOMOSYNTHESIS SCREENING BIOrdered By: Radiologist Radiology on 18-68-3350CLEV [employer] Work Phone: cOVID + FLU Quick Testingon 49-47-1846CMPR-CoV-2 (COVID-19) RNA SHARMILA+probe Ql (Unsp spec)NegativeGarden Grove Concept.io Other COVID + FLU Quick TestingNegativeGarden Grove [employer] Other Urinalysis - AUTOMATEDon 91-19-8095Mlagcrzyud (U)clear [place] [employer] Other Bilirubin Ql (U)NegativeGarden Grove [employer] Other Color (U)yellowGarden Grove [employer].io Other Glucose Ql (U)NegativeGarden Grove [employer] Other Hemoglobin Ql (U)largeGarden Grove [employer] Other Ketones Ql (U)PositiveGarden Grove [employer] Other Leukocyte esterase Test strip Ql (U)moderateNort Concept.[employer] Other Nitrite Ql (U)PositiveGarden Grove [employer] Other pH (U)6.5 [pH][facility] Drivr Other Protein Ql (U)NegativeGarden Grove [employer] Other Specific gravity (U) [Rel density]1.025[facility]enterpointe hospital [employer] Other Urobilinogen (U) [Mass/Vol]0.2 mg/dLGarden Grove Concept.io Other Urinalysis - AUTOMATEDGarden Grove [employer] Other Urine Cultureon 76-60-4059Egkut Culture>100,000Nort [employer] Other Urine Culture<16SusceptibleAvidbank Holdingscenterpointe hospital Concept.io Other Urine Culture<8/4SusceptibleGarden Grove [employer] Other Urine Culture<8SusceptibleGarden Grove [employer] Other Urine Culture<4SusceptibleGarden Grove [employer] Other Urine Culture<2SusceptibleAvidbank Holdingscenterpointe hospital Concept.io Other Urine Culture<1SusceptibleAvidbank Holdingscenterpointe hospital Concept.io Other Urine Culture<0.25SusceptibleGarden Grove [employer] Other Urine Culture<0.5SusceptibleGarden Grove [employer] Other Urine Culture<32SusceptibleAvidbank Holdingscenterpointe hospital Concept.io Other Urine Culture<0.5/9.5SusceptibleAdsit Media Technology [employer] Other MG MAMM SCREEN 3D SHANE CADon 08-14-2292UJ MAMM SCREEN 3D SHANE CADPatient: ARIANA MITCHELL Exam Date: 12/20/2022 : 1975 Gender:F Ordering : DANNY GEORGES [employer]ITURE GLAZIER Admission #: [id number] Family : Order #: [id number] CLICK HERE TO VIEW EXAM RADIOLOGY REPORT [...] breast cancer at age 49. LOCATION: [facility] BREAST COMPOSITION: Extremely dense, which lowers [...] by: Deshawn Joseph MD on 12/21/2022 at 06:16[facility] Vital Signs Date TimeVital SignValuePerforming ZimrztyluBonogail45-95-0166 10:44-0400Body rxoppu492.1 Israel José Manuel OFFICE RN-C Work Phone: [facility]09-27-2025 10:44-0400 Body mass index (BMI) [Ratio]30.3 kg/m2Michelle José Manuel OFFICE RN-C Work Phone: [facility]09-27-2025 10:44-0400 Body sfizvolvabv84.7 [degF]Michelle José Manuel OFFICE RN-C Work Phone: [facility]09-27-2025 10:44-0400 Body wkiqhf73.78 kgCiera José Manuel OFFICE RN-C Work Phone: [phone] [place], [place] 5540409-27-2025 10:44-0400 Diastolic blood unbbfixt05 mm[Hg]Michelle Georges OFFICE RN-C Work Phone: [facility]09-27-2025 10:44-0400 Heart rate88 /minMichelle Belcherhholz OFFICE RN-C Work Phone: [facility]09-27-2025 10:44-0400 Respiratory rate18 /minLisa Belcherhholz OFFICE RN-C Work Phone: [facility]09-27-2025 10:44-0400 SaO2% (BldA) [Mass fraction]99 %Michelle Brooksz OFFICE RN-C Work Phone: [facility]09-27-2025 10:44-0400 Systolic blood anojgizp565 mm[Hg]Michelle Georges OFFICE RN-C Work Phone: [facility]04-21-2025 15:33-0400 Body ppqenv849.1 cmSt. [facility]04-21-2025 15:33-0400Body mass index (BMI) [Ratio]30.5 kg/w1HizyzuysjSt. John Of God Hospital04-21-2025 15:33-0400Body .7 [degF][facility]04-21-2025 15:33-0400Body .17 kgSt. [facility]04-21-2025 15:33-0400Diastolic blood edozkehi72 mm[Hg][facility] 02-24-2025 15:33-0400Heart rate95 /[facility] 02-24-2025 15:33-0400Respiratory rate18 /[facility] 02-24-2025 15:33-3283GjL7% (BldA) [Mass fraction]97 %[facility]04-21-2025 15:33-0400Systolic blood rjugrxuf495 mm[Hg][facility]02-28-2025 07:51-0500Body .1 cmLisa Aichholz Work Phone: [facility]02-28-2025 07:51-0500 Body cuzxru95.37 kgLisa Aichholz Work Phone: [phone] [place], [place] 3718502-17-2025 11:51-0500 Body mass index (BMI) [Ratio]29.92 kg/m2Lisa Aichholz OFFICE RN Work Phone: [phone] [place], [place] [address]Qwinywvsbw39-84-4092 11:51-0500Body temperature 98.71 [degF]Michelle Aichholz OFFICE RN Work Phone: [phone] [place], [place] [address]Gpdnukeggt10-21-4906 11:51-0500Body cjifik24.56 kgLisa Aichholz OFFICE RN Work Phone: [phone] [place], [place] [address]Zrecxjasvp75-29-2077 11:51-0500Diastolic blood hoazzciu33 mm[Hg]Michelle Aichholz OFFICE RN Work Phone: [phone] [place], [place] [address]Qmetvltalj23-45-2975 11:51-0500Heart rate95 /min Michelle Aichholz OFFICE RN Work Phone: [phone] InstituteYfrakqqgxm50-98-2669 11:51-0500Respiratory rate18 /minLisa Aichholz OFFICE RN Work Phone: [phone])[facility] InstituteMvfborqdta32-03-1052 11:51-8450WoS1% (BldA) [Mass fraction]97 %Michelle Aichholz OFFICE RN Work Phone: [phone] [place], [place] [address]Vifznfknoo48-77-5632 11:51-0500Systolic blood ilvmdkiq158 mm[Hg]Michelle Aichholz OFFICE RN Work Phone: [phone] InstituteJlbkxqlufy78-77-3221 15:02-0500Body pyrqbo691.1 cmLisa Aichholz OFFICE RN Work Phone: [facility] InstituteIvkckefisw57-66-0492 15:02-0500Body mass index (BMI) [Ratio]29.82 kg/m2Lisa Aichholz OFFICE RN Work Phone: [phone] [place], [place] [address]Bzbmwkjyby72-95-2018 15:02-0500Body temperature 97.3 [degF]Michelle Georges OFFICE RN Work Phone: [facility] InstituteYiernqbkgp55-61-5161 15:02-0500Body xbbyeh66.28 kgMichelle Georges OFFICE RN Work Phone: [facility] InstituteDfargdwnog73-97-5482 15:02-0500Diastolic blood caayavro16 mm[Hg]Michelle Georges OFFICE RN Work Phone: [facility] InstituteTvokdramrw87-80-8607 15:02-0500Heart rate72 /min Michelle Georges OFFICE RN Work Phone: [facility] InstituteGiaucvmqik67-43-2732 15:02-0500Respiratory rate18 /minMichelle Georgse OFFICE RN Work Phone: [facility] InstituteHwuhjuxkbr61-41-2710 15:02-9076VuA6% (BldA) [Mass fraction]98 %Michelle Georges OFFICE RN Work Phone: [facility] InstituteDrfkttlqsf00-61-5517 15:02-0500Systolic blood wekeeroe675 mm[Hg]Michelle Georges OFFICE RN Work Phone: [facility] InstituteYukrfwetrt13-99-1455 15:50-0500Body mgbmop558.1 Maryana Elena Other [employer] Other 02-09-2024 15:50-0500Body mass index (BMI) [Ratio] 29.95 kg/v2KaskpSonal Elena Other [employer] Other 02-09-2024 15:50-0500Body fszxxlgkiyv95.1 [degF]Sonal Elena Other [employer] Other 02-09-2024 15:50-0500Body sdfidk37.65 kgSonal Elena Other [employer] Other 02-09-2024 15:50-0500Diastolic blood bsinldai33 mm[Hg] Sonal Elena Other [employer] Other 02-09-2024 15:50-0500Respiratory rate18 /minSonal Elena Other [employer] Other 02-09-2024 15:50-6434FeW0% (BldA) [Mass fraction]99 % Sonal Elena Other [employer] Other 02-09-2024 15:50-0500Systolic blood gbkaqddd261 mm[Hg] Sonal Elena Other [employer] Other 01-04-2024 15:30-0500Body .1 cmAmbsly Elena Other [employer] Other 01-04-2024 15:30-0500Body mass index (BMI) [Ratio] 29.88 kg/p2HxqlhSonal Elena Other [employer] Other 01-04-2024 15:30-0500Body wizijgvcmjn26.3 [degF]Sonal Elena Other [employer] Other 01-04-2024 15:30-0500Body ubbnuj61.47 kgSonal Elena Other [employer] Other 01-04-2024 15:30-0500Diastolic blood skmktgle66 mm[Hg] Sonal Elena Other [employer] Other 01-04-2024 15:30-0500Respiratory rate18 /minSonal Elena Other [employer] Other 01-04-2024 15:30-3500HlE8% (BldA) [Mass fraction]99 % Sonal Elena Other [employer] Other 01-04-2024 15:30-0500Systolic blood cizqiekz763 mm[Hg] Sonal Elena Other [employer] Other 12-14-2023 15:45-0500Body ixyboa933.1 cmAmanda Linda Other [employer] Other 12-14-2023 15:45-0500Body mass index (BMI) [Ratio] 29.28 kg/g1Jeogud Linda Other [employer] Other 12-14-2023 15:45-0500Body dafxhfqbfvs35.1 [degF]Lisa Linda Other [employer] Other 12-14-2023 15:45-0500Body meifpg01.83 kgAmanda Linda Other [employer] Other 12-14-2023 15:45-0500Diastolic blood efrgyteu65 mm[Hg] Lisa Linda Other [employer] Other 12-14-2023 15:45-0500Respiratory rate18 /minAmanda Linda Other [employer] Other 12-14-2023 15:45-6053LcU9% (BldA) [Mass fraction]98 % Lisa Linda Other [employer] Other 12-14-2023 15:45-0500Systolic blood yuhbenpl261 mm[Hg] Lisa Mckeon Other [employer] Other 11-08-2023 13:55-0500Body urznys167.1 cmPamelalex Boykin Other [employer] Other 11-08-2023 13:55-0500Body mass index (BMI) [Ratio] 29.62 kg/f1FqjniuIesha Boykin Other [employer] Other 11-08-2023 13:55-0500Body xraggziufdp04.9 [degF]Iesha Boykin Other [employer] Other 11-08-2023 13:55-0500Body dsyrsa60.74 kgIesha Boykin Other [employer] Other 11-08-2023 13:55-0500Respiratory rate18 /minIesha Boykin Other [employer] Other 11-08-2023 13:55-5545DwL4% (BldA) [Mass fraction]98 % Iesha Boykin Other [employer] Other Encounters Encounter DateEncounter TypeCare ProviderFacilityStart: 08-02-2025 End: 44-66-6479xbzgklxexbUmjxElise PERDOMO Work Phone: [facility] Work Phone: Start: 08-02-2025 End: 78-80-0879Wvxrjaq encounter procedurePaannie Conteh [facility] Work Phone: Start: 03-27-2025 End: 89-41-2443txydlhcuihQKRD AICHHOLZNot AvailableStart: 03-27-2025 End: 11-45-9740Zbmmvp flowsheetLisa Aichholz OFFICE RN Work Phone: [facility] FMStart: 03-27-2025 End: 46-71-7511Hmxvze flowsheetLisa Aichholz OFFICE RN Work Phone: [facility] FMStart: 03-12-2025 End: 75-20-5559Bwdqzvrzt Result EncounterLisa Aichholz OFFICE RN Work Phone: [facility] External Department UnsolicitedStart: 03-12-2025 End: 24-10-8099Fkzpvicau Result EncounterLisa Aichholz OFFICE RN Work Phone: [facility] External Department UnsolicitedStart: 02-24-2025 End: 41-24-3478mnnnbhphjeLjeugrhqxCincinnati [facility] Center Work Phone: Start: 02-24-2025 End: 35-16-7432Tvkzkdb encounter procedureUnc [facility] Work Phone: Start: 01-03-2025 End: 67-97-8201Zdrxfkm encounter procedureLisa Aichholz Work Phone: [facility] [place] Work Phone: Start: 01-03-2025 End: 99-20-6383lemznvraqtQrzm J Aichholz Work Phone: [facility] Work Phone: Start: 12-23-2024 End: 65-88-4486Nplneo flowsheetLisa Aichholz OFFICE RN Work Phone: [facility] FMStart: 12-23-2024 End: 08-33-5346Dniqjx flowsheetLisa Aichholz OFFICE RN Work Phone: [facility] FMStart: 12-23-2024 End: 39-65-3570Auldqx outpatient visit 15 minutesLisa Isbelljane OFFICE RN Work Phone: [facility] FMComment on above:Acute non-recurrent maxillary sinusitis (Primary Dx); Median nerve neuritis, right; Overweight (BMI 25.0-29.9); Lumbar back painStart: 12-23-2024 End: 50-16-4749cjwlqmsrdeRKBE AICHHOLZNot AvailableStart: 10-22-2024 End: 08-00-8009Blpeqfvhj Result EncounterGeneric External Data ProviderNOMS External Department UnsolicitedStart: 10-22-2024 End: 11-25-3411Hzimjkalm Result EncounterGeneric External Data ProviderNOMS External Department UnsolicitedStart: 09-30-2024 End: 54-46-0964Vxqzzmg encounter statusCierasa Belchermalcolm OFFICE RN Work Phone: [facility] Work Phone: Start: 09-30-2024 End: 18-52-7929Tbcqhlgr preventive med est patient 40-64yrsMichelle Georges OFFICE RN Work Phone: noms CWM FMComment on above:Encounter for wellness examination (Primary Dx); Overweight (BMI 25.0-29.9); Needs flu shot; Mixed hyperlipidemia (CMS/HCC); Encounter for screening mammogram for malignant neoplasm of breastStart: 09-30-2024 End: 06-58-4705evfrzhbxyoTDZM AICHHOLZNot AvailableStart: 09-30-2024 End: 29-37-2257Qnnsmv flowsheetMichelle Belchervinodjane OFFICE RN Work Phone: [facility] CWM FMStart: 09-30-2024 End: 11-83-2588Socxtt flowsodalisMichelle Akilahjane OFFICE RN Work Phone: [facility] CWM FMStart: 88-05-4831cyxuldcwqcPdbneczu:GS BellevueStart: 71-75-3238Ywqzbhn encounter statusLisa Aichholz OFFICE RN Work Phone: noms HealthcareStart: 02-06-2024 End: 96-85-2432Yuydajdpe Result EncounterLisa Aichholz OFFICE RN Work Phone: noms External Department UnsolicitedStart: 02-06-2024 End: 40-50-5689Bkomogclj Result EncounterLisa Aichholz OFFICE RN Work Phone: noms External Department UnsolicitedStart: 02-06-2024 End: 63-65-4643zuwnlyyqwhSqwg J Aichholz Work Phone: [facility] Work Phone: Start: 02-06-2024 End: 58-62-4156Kuchhwhg ReferredLisa Aichholz Work Phone: [facility] Path Spec [facility] HospStart: 01-30-2024 End: 56-97-3988Xlgkdvuiy Result EncounterSdavie Harman MD Work Phone: noms External Department UnsolicitedStart: 01-30-2024 End: 20-02-2745Zvamdizpx Result EncounterSdavie Harman MD Work Phone: noms External Department UnsolicitedStart: 01-24-2024 End: 86-60-2791Eioayqqyc Result EncounterLisa Aichholz OFFICE RN Work Phone: noms External Department UnsolicitedStart: 01-24-2024 End: 02-93-9288Eessceoif Result EncounterLisa Aichholz OFFICE RN Work Phone: noms External Department UnsolicitedStart: 01-10-2024 End: 08-83-5791Jfoqmqtpa Result EncounterLisa Aichholz OFFICE RN Work Phone: noms External Department UnsolicitedStart: 01-10-2024 End: 69-70-8031Plyjwkjcv Result EncounterLisa Aichholz OFFICE RN Work Phone: noms External Department UnsolicitedStart: 12-15-2023 End: 78-35-4122bbuynielvbDicvg Keller Other nort [employer] Other Start: 65-54-4255Tvksuh outpatient visit 25 minutes Sonal KellerFPG [facility] Care ClydeStart: 11-09-2023 End: 53-44-9552uaonxwyekhBsnds Keller Other [facility] [employer] Other Start: 15-57-8800Mfljhv outpatient visit 25 minutes Sonal KellerFP[facility] ClydeStart: 10-19-2023 End: 35-12-5726wuhrlmifecWoeegv Linda Other [facility] [employer] Other Start: 08-59-3753Tguhxc outpatient visit 15 minutes Lisa GrobFPG [facility] Care ClydeStart: 09-13-2023 End: 51-68-2935Izjdxqip ReferredNP-C Iesha Boykin Work Phone: [facility] [place] Work Phone: Start: 09-13-2023 End: 82-69-7502cvozpqcvidEO-C Iesha Boykin Work Phone: [facility] Work Phone: Start: 39-43-7621Zcctpm outpatient new 10 minutes Ieshagracy BoykinFPG Urgent Care ClydeStart: 12-20-2022 End: 54-56-7674hdiamtbjfvDV DESHAWN Liao WESTFacility:U7Gdaan: 12-07-2022 End: 03-46-7938cbeowanpvjUEF MICHELLE GEORGESFacility:H1 Procedures DateProcedureProcedure DetailPerforming ClinicianStart: 10-77-8585YD TOMOSYNTHESIS SCREENING BILisa José Manuel OFFICE RN Work Phone: Start: 63-48-6745YsgiuhecbqpEfcx José Manuel OFFICE RN Work Phone: Start: 16-17-5697OFN CBC WITH AUTO DIFFGeneric External Data ProviderStart: 78-40-5550QAXEF POST BIOPSY RIGHTMichelle Georges OFFICE RN Work Phone: Start: 15-22-7779QR stereo Guidance for percutaneous biopsy.core needle of Breast - rightMichelle Isbelljane OFFICE RN Work Phone: Start: 62-60-6452IR CHEST 2Nae Harman MD Work Phone: Start: 59-75-6228Fl breast uni real time with image limitedMichelle Brooksmellissa OFFICE RN Work Phone: Start: 01-24-2024 End: 42-25-9393EjxqlvvodqwRmgg Aichholz OFFICE RN Work Phone: Start: 86-82-3305GE TOMOSYNTHESIS SCREENING Shanika Brooksmellissa OFFICE RN Work Phone: Start: 99-24-3350Rwymbkqpybhb/tazobactamPamela Lucretia Other Start: 54-41-3537Shnkwqmsmpa observation [Identifier] in Cervix by Cyto stainMichelle Brooksmellissa OFFICE RN Work Phone: Plan of Treatment DateCare ActivityDetailAuthorStart: 00-28-6606Mumiksrcj for malignant neoplasm of cervixNOMS HealthcareStart: 70-81-4162Lrmxamfmb for malignant neoplasm of colonNOMS HealthcareStart: 28-79-1156Gtrohutxq for malignant neoplasm of breast MammogramNOMS HealthcareStart: 48-40-9443Odnfcfcqi for malignant neoplasm of cervixPap SmearNOMS HealthcareStart: 25-87-1002Gsgpkybtx vaccinationInfluenza Vaccine (#1)[facility] HealthcareStart: 03-27-2025 End: 54-65-2271Jorxicb encounter procedureNOMS CWM FMComment on above:Arrived Start: 96-67-8587Kvtoualyh for malignant neoplasm of breastMammogramNOMS HealthcareStart: 01-18-2025 End: 81-23-3250UC Breast - bilateral ScreeningBilateral screening mammogram Imaging Routine Encounter for screening mammogram for malignant neoplasm of breast Expected: 01/18/2025 (Approximate), Expires: 11/30/2025[facility] Work Phone: Comment on above:Expected: 01/18/2025 (Approximate), Expires: 11/30/2025Start: 12-23-2024 End: 11-39-1722Eesluun encounter /17/2025 11:45 AM EST [facility] [address] [place] [address] Michelle Georges, GUSTAVO [address] [place] [address] ArrivedWEST HILLS [facility] FMComment on above:ArrivedStart: 09-30-2024 End: 62-19-1029Fsiwsqf encounter vsylekkui30/25/2024 3:00 PM EST Office Visit [facility] [address] [place] [address] Michelle Georges, GUSTAVO [address] [place] [address] Encounter for wellness examination (Primary Dx); Overweight (BMI 25.0-29.9)[facility] FMComment on above:Encounter for wellness examination (Primary Dx); Overweight (BMI 25.0-29.9)Start: 81-84-4976Htvteemgz vaccinationInfluenza Vaccine (#1)[facility] HealthcareStart: 00-99-1171Hkscfhpn identified in Urine by [facility] Hospitaltart: 41-34-2558Lfttnixsg for malignant neoplasm of colonINTERMOUNTAIN [facility]ARE Healthcare Immunizations Immunization DateImmunizationNotesCare YefhwebhDqlzgwks96-46-3207Yokjktrfw, injectable, Madin Belt Canine Kidney, preservative free, quadrivalentLisa José Manuel CHEN Work Phone: [facility] InstituteRwelhinyvq79-95-5868bsatzintw virus vaccine, unspecified formulationLisa Aichholz OFFICE RN Work Phone: [facility] InstituteKurdwzzyfi66-04-8598pehkjzxxi B vaccine, adult dosageLisa Aichholz OFFICE RN Work Phone: [facility] InstitutePbxivsaanp69-63-7441gtxwmrutm B vaccine, adult dosageLisa Aichholz OFFICE RN Work Phone: [facility] InstituteSvbxyjcqes42-40-5591olflrdcbh B vaccine, adult dosageLisa Aichholz OFFICE RN Work Phone: [facility] Payers DatePayer CategoryPayerPolicy [id number]-hgs [id number] Health Insurance [employer] [id number] [id number] [id number] [id number] Health InsuranceNew[facility] Hospital [id number] Social History DateTypeDetailFacilityTobacco smoking status NHISUnknown if ever smokedKing'S [facility] Work Phone: Start: 87-58-7046Iiw [facility] Hospitaltart: 02-29-2024 End: 83-27-4865Veb Assigned At [facility] HealthcareStart: 03-26-2019 End: 14-04-5856Iporowl smoking status NHISNever smoked tobacco (finding) [facility] Hospitaltart: 01-76-0133Psrhjpu use and exposure Smokeless tobacco non-userNODE HealthcareStart: 02-06-2024 End: 33-32-6304Kyzoxydby beverage intakeCurrent drinker of alcohol (finding)[facility] HealthcareStart: 02-29-2024 End: 72-16-8059Qagmwgz of Social functionNOMS HealthcareStart: 15-92-9418Nyllgqf CommentOCCASSIONALNOMS HealthcareStart: 40-01-5224Bft assigned at birthNot on fileNOMS HealthcareStart: 01-04-2025 End: 71-35-9069DcyIkqwia (finding)[facility] Hospitaltart: 11-93-5742HpjFhqdysNXQC HealthcareTobacco smoking status NHISTobacco smoking consumption unknownNOMS HealthcareNEGATED: Highlighted rowStart: NINFHistory of tobacco usePassive smokerNOMS Healthcare Functional Status ZxpyPxacquwawuYxittvShklqknx43-50-2097Nnpysui Health Questionnaire 2 item (PHQ- 2) [Reported][facility] InstituteIndtunrqld85-21-4551Ksutuke Health Questionnaire 2 item (PHQ- 2) [Reported][facility] Work Phone: Clinical Notes 12-07-2022 to 12-23-2024 Note Date & OchyMxmhMivctftz39-94-1172 History of Present illness Narrative* Michelle Georges NP - 12/23/2024 12:16 PM ESTAssociated Problem(s): Median nerve neuritis, right Recommend cock up splint And she works at , recommend she fu with health center there to determine if this can be a work related injury * Michelle Georges NP - 12/23/2024 12:14 PM ESTAssociated Problem(s): Acute non- recurrent maxillary sinusitis Fluids, rest, add nasal steroid Finish atb, fu if not better * YANY RAMIREZ - 12/23/2024 11:45 AM EST Pt states she started having symptoms on [...] tried using brace but does not help * Michelle Georges NP - 12/23/2024 11:45 AM EST Images from the original note were not [...] fever. The pain is moderate. Associated symptoms includecongestion and sinus pressure. Pertinent negatives include no [...] wrist). Negative for back pain, joint swelling andmyalgias. Skin: Negative for rash and wound. Neurological: [...] (Mobic) 15 MG tablet documented in this encounterFreeman Cancer InstituteUlzyajaqsr14-74-4610 Instructions* Patient Instructions* Michelle Georges NP - 12/23/2024 11:45 AM EST Finish atb, take with food Add allergy nasal spray such as generic for flonase nasal spray Follow up if not better Needs mammogram documented in this [facility]11-25-2024 History of Present illness Narrative* Michelle Georges NP - 09/30/2024 3:28 PM ESTAssociated Problem(s): Encounter for screening mammogram for malignant neoplasm of breast Hx of breast cancer with sister 09/29 * Michelle Georges NP - 09/30/2024 3:15 PM ESTAssociated Problem(s): Mixed hyperlipidemia (CMS/HCC) No statin use * Michelle Georges NP - 09/30/2024 3:00 PM EST Images from the original note were not [...] Relevant Orders Flu vaccine, MDCK, quadrivalent, PF ([id number]) (Flucelvax single dose syringe) (Completed) Mixed hyperlipidemia (CMS/HCC) No statin use Encounter for screening mammogram for malignant neoplasm of breast Hx of breast cancer with sister 09/29 Relevant Orders Bilateral screening mammogram * Michelle Georges NP - 09/30/2024 7:46 AM ESTAssociated Problem(s): Encounter for wellness examination Reviewed Ht/Wt/BMI Recommend eye exam yearly Recommend dental exams twice a year Balance work/leisure activities Exercises is recommended most days of the week (appropriate as chronic conditions allow) Follow up yearly and prn LMP 12/2023, does have hot flashes from time to time documented in this [facility]11-25-2024 Instructions* Patient Instructions* Michelle Georges NP - 09/30/2024 3:00 PM EST Aerobic exercise 3-5 times weekly for 30 minutes Keep appt with dr Wilkes Mammogram 01/28-we will order this in January 2025 documented in this [facility]02-09-2024 Evaluation note* Encounter Date Diagnosis Assessment Notes Treatment Notes Treatment Clinical Notes Dec, Contact with and (madden spected) exposure to covid-19 (ICD-10 - Z20.822) Dec,Viral URI with cough (ICD-10 - J06.9) Advised patient that COVID/Influenza A/B test was negative today. Advised patient that will treat as viral URI. Supportive care as directed, increase fluids and rest, Tylenol/Motrin as directed, rx of prednisone and [place] as directed, cool mist humidifier, throat lozenges. [...] treatment plan. Patient left in stable condition [employer] Other 01-04-2024 Evaluation note* Encounter Date Diagnosis Assessment Notes Treatment Notes Treatment Clinical Notes Nov, Acute non-recurrent maxillary si nusitis (ICD-10 - J01.00) No testing performed at [...] understanding and is agreeable to treatment plan [employer] Other 12-14-2023 Evaluation note* Encounter Date Diagnosis Assessment Notes Treatment Notes Treatment Clinical Notes Oct, Subconjunctival hemorrhage of le ft eye (ICD-10 - H11.32) You were seen here today for complaints of left outer corner eye redness. You deny injury, itching,pain, or draianage, You deny any recent illness, congestion, cough, or high blood pressure. The exam of your left eye is consistent with a subconjunctival hemmorhage. You can continue your saline eye drops for comfort. The redness should resolve on its own. Follow up with your primary care provideror eye doctor if sympotoms persist. Go to the ER if you lose vision, have change in vision, severe headache. [facility] Other 11-08-2023 Evaluation note* Encounter Date Diagnosis Assessment Notes Treatment Notes Treatment Clinical Notes Sep, Dysuria (ICD-10 - R30.0) Sep,cute cystitis with hematuria (ICD-10 - N30.01)Drink plenty fluids, get plenty of rest. Take the Macrobid and the Pyridium as prescribed until gone. Take Tylenol or Motrin as needed for aches pains or fevers. Follow-up with your family physician if no improvement in 2 to 3 days [employer] Other 02-01-2023 NotePROCEDURE: XR ANKLE LT MIN 3 V HISTORY: Effusion of joint of left ankle ; acute lateral ankle pain; no known injury COMPARISON: None. FINDINGS: BONES:No fracture, acute abnormality, or significant arthropathy. SOFT TISSUES:Mild lateral soft tissue swelling. EFFUSION:None visible. OTHER: Negative. IMPRESSION: 1. Mild lateral swelling suggesting soft tissue injury. 2. No acute bone abnormality. Electronically authenticated by: NELSON MAYS Date: 2022-12-07 13:11[facility] Centeraluation noteNo assessment information availableWright-Patterson Medical Center Work Phone: Evaluation note* Diagnosis Pain of [...] neoplasm of breast documented in this encounter [facility] HealthcareEvaluation note* Diagnosis Pain of right hip- [...] back pain Lumbago documented in this encounter [facility] HealthcareEvaluation note* Diagnosis Onset Date Resolution Status Admit Date Allergic rhinitis, cause unspecified acuteApril 2024 3:20pm [facility] Work Phone: Evaluation note* Diagnosis Onset Date Resolution Status Admit Date Strain of right trapezius muscle acuteSeptember 2024 10:39am [facility] Work Phone: History general Narrative - Reported* Type Description Date Surgical History tubal ligation Surgical HistoryC section x 2Surgical HistoryLEEPHospitalization Historysee above [employer] Other Reason for referral (narrative)No reason for referral information availableAdams County Regional Medical Center Work Phone: Summary Purpose Family History Relationship Condition Age at Onset Recorded Date/T denisha Not Specified Diabetes mellitus Unknown Heart diseaseUnknownDeceasedUnknown Relationship Condition Age at Onset Recorded Date/T denisha mother Diabetes mellitus Unknown Heart diseaseUnknownDeceasedUnknown Advance Directives Advance Directive Response Recorded Date/ Time Advance Directives No December 05, 2018 9:22am Advance Directive Response Recorded Date/ Time Advance Directives No December 05, 2018 10:22am Advance Directive Response Recorded Date/ Time Advance Directives No February 24, 2 025 3:17pm Chief Complaint and Reason for Visit Chief Complaint Dysuria Chief Complaint Unknown Chief Complaint Admit Date r93.89 n60.81 d05.11 z80.3 December 7:36am Chief Complaint Admit Date Sinus congestion, cough February 24, 2025 3:20pm Reason for Visit Admit Date Allergic rhinitis, cause unspecified Apr 2024 3:20pm Chief Complaint Admit Date Woke up with a stiff neck July 10:39am Reason for Visit Admit Date Strain of right trapezius muscle Septemb 2024 10:39am Additional Source Comments INFORMATION SOURCE (unrecogn ized section and content) DATE CREATED AUTHOR 12/24/2022 [facility] DATE CREATED AUTHOR AUTHOR'S ORGANIZ ATION 03/25/2024 [facility] DATE CREATED AUTHOR AUTHOR'S ORGANIZ ATION 01/05/2025 [facility] DATE CREATED AUTHOR AUTHOR'S ORGANIZ ATION 04/03/2025 [facility] EPIC Care Teams (unrecognized sec tion and content) Team Status: Inactive Member Role Status Dates Iesha Boykin NP-C Attending Provider Active Team Status: Active Member Role Status Dates Michelle Georges Primary Care Provider Active Team Status: Inactive Member Role Status Dates Michelle Georges Primary Care Provide r, Attending Provider Active Start: February 06, 2024 End: February 06, 2024Team MemberRelationshipSpecialtyStart DateEnd Date Kleber Boggs MD [address] [place] [address] [facility] - [facility]/18/24 Michelle Georges NP [address] [place] [address] Referring PhysicianNurse Practitioner06/02/23 Michelle Georges NP [address] [place] [address] Nurse PractitionerEs[facility] Hospital Medicine01/18/24Team MemberRelationshipSpecialtyStart DateEnd Date Kleber Boggs MD [address] [place] [address] PCP - [facility] Medicine01/18/24 Michelle Georges NP [address] [place] [address] Referring PhysicianNurse Practitioner06/02/23 Michelle Georges NP [address] [place] [address] [facility]Es[facility] Medicine01/18/24Team MemberRelationshipSpecialtyStart DateEnd Date Kleber Boggs MD [address] [place] [address] [facility] - [facility]01/18/24 Michelle Georges NP [address] [place] [address] Referring PhysicianNurse Practitioner06/02/23 Michelle Georges NP [address] [place] [address] Nurse PractitionerGenesis Medical Centerly Medicine01/18/24Team MemberRelationshipSpecialtyStart DateEnd Date Kleber Boggs MD [address] [place] [address] PCP - GeneralFamily Medicine01/18/24 Michelle Georges NP [address] [place] [address] Referring PhysicianNurse Practitioner06/02/23 Michelle Georges NP [address] [place] [address] [facility] Medicine01/18/24Team MemberRelationshipSpecialtyStart DateEnd Date Kleber Boggs MD [address] [place] [address] PCP - Generalmily Medicine01/18/24 Michelle Georges NP [address] [place] [address] Referring PhysicianNurse Practitioner06/02/23 Michelle Georges NP [address] [place] [address] [facility] Medicine01/18/24 Team Status: Inactive Member Role Status Dates Michelle Butch Georges Primary Care Provider Active Sta rt: January 03, 2025 End: January 03Anant Bonds ProviderActiveStart: January 03, 2025 End: January 03, 2025 Team Status: Inactive Member Role Status Dates Michelle Georges Primary Care Provider Active Sta rt: February 24, 2025 End: February 24, 2025Jet Bernal ProviderActiveStart: February 24, 2025 End: February 24, 2025Team MemberRelationshipSpecialtyStart DateEnd Date Kleber Boggs MD [address] [place] [address] PCP - [facility] Medicine01/18/24 Michelle Georges NP [address] [place] [address] Referring PhysicianNurse Practitioner06/02/23 Michelle Georges NP [address] [place] [address] [facility]Es[facility] Medicine01/18/24Team MemberRelationshipSpecialtyStart DateEnd Date Kleber Boggs MD [address] [place] [address] [facility]CP - [facility]01/18/24 Michelle Georges NP [address] [place] [address] Referring PhysicianNurse Practitioner06/02/23 Michelle Georges NP [address] [place] [address] Nurse PractitionerGenesis Medical Centerly Medicine01/18/24 Team Status: Active Member Role Status Dates LEANNE Stapleton Primary Care Provider Active Team Status: Inactive Member Role Status Dates LEANNE Stapleton Primary Care Provider Active Start: August 02, 2025 End: August 02, 2025Alondra Conteh APRN OFFICE RN-CAttending Provider ActiveStart: August 02, 2025 End: August 02, 2025Team MemberRelationshipSpecialtyStart DateEnd Date Kleber Boggs MD PCP - GeneralGen[facility] Centerly Medicine01/18/24 Michelle Georges NP Referring PhysicianNurse Practitioner06/02/23 Michelle Georges NP [facility]Es[facility] Medicine01/18/24Team MemberRelationshipSpecialtyStart DateEnd Date Kleber Boggs MD PCP - GeneralFamily Medicine Kleber Boggs MD PCP - GeneralFamily Medicine01/18/24 Michelle Georges NP Referring PhysicianNurse Practitioner06/02/23 Michelle Georges NP [facility] Pract[facility]erEs[facility] Medicine01/18/24 Goals (unrecognized section and content) Goals may [...] BE BASED ON THE PRIMARY CLINICAL RECORDS. [employer] provides no warranty or guarantee of the accuracy or completeness of information in this document.
[2025-10-10 11:01] LABS: Glucose Urine UA NEGATIVE (NEGATIVE)
[2025-10-10 11:01] LABS: Hematocrit 42.4 % (36.0-48.0); Hemoglobin 14.2 g/dL (12.0-16.0); Immature Granulocytes Abs Auto 0.01 10^3/uL (0.00-0.03); Immature Granulocytes Pct Auto 0.2 % (0.0-0.5); Lymphocytes Absolute Auto 1.7 10^3/uL (1.2-3.8); Mean Corpuscular HGB Conc 33.5 g/dL (29.9-35.2); Mean Corpuscular Hemoglobin 30.3 pg (26.7-34.0); Mean Corpuscular Volume 90.6 fL (81.0-99.0); Platelet Count 273 10^3/uL (150-450); Red Blood Count 4.68 10^6/uL (4.20-5.40); White Blood Count 5.5 10^3/uL (4.0-11.0)
[2025-10-10 11:33] LABS: Cast Seen? NONE SEEN #/LPF (NONE SEEN); Crystals Seen? None Seen #/HPF (None Seen)
[2025-10-10 12:24] LABS: Alanine Aminotransferase 28 U/L (14-59); Albumin Globulin Ratio 1.1; Albumin Level 3.7 g/dL (3.4-5.0); Alkaline Phosphatase 70 U/L (46-116); Anion Gap 12.3; Aspartate Amino Transferase 16 U/L (15-37); Blood Urea Nitrogen 19.0 mg/dL (7.0-18.0); Calcium 9.1 mg/dL (8.5-10.1); Carbon Dioxide 27.6 mmol/L (21.0-32.0); Chloride 107 mmol/L (98-107); Cholesterol 237 mg/dL (<=200); Estimated GFR (African America >60 (>=60 mL/min/1.73m^2); Estimated GFR (Non-African Ame >60 (>=60 mL/min/1.73m^2); Globulin 3.4 g/dL; Glucose 93 mg/dL (74-106); HDL Cholesterol 70 mg/dL (40-60); Potassium 3.9 mmol/L (3.5-5.1); Sodium 143 mmol/L (136-145); Thyroid Stimulating Hormone 1.279 uIU/mL (0.358-3.740); Total Protein 7.1 g/dL (6.4-8.2); Triglycerides 60 mg/dL (<=150); VLDL CHOLESTEROL 12.0 mg/dL
== END 2025-10-10 10:46 | disposition home or self-care (01) ==
LOC: LAB 10:45
PROVIDERS: PCP Nurse Practitioner; Visit Provider Nurse Practitioner
DX: Z00.00 Encounter for general adult medical examination without abnormal findings (principal)
CPT/HCPCS: 36415; 80053; 80061; 81001; 84443; 85025